=== PATIENT | female | born 1955 | race Caucasian/White ===

== ENCOUNTER 2018-10-09 11:12 | Emergency (ER) | payer MEDICARE, MEDICAID ==
[~2018-10-09] VITALS: Ht 165.1 cm; Wt 94.5 kg
[2018-10-09 11:17] VITALS: Ht 165.1 cm; Wt 94.5 kg
[2018-10-09] MEDS ORDERED: VOLTAREN75 MG PO (12:52)
[2018-10-09] MEDS ORDERED: BACLOFEN20 M1 PO (12:52)
[2018-10-09 13:23] VITALS: BP 163/84
== END 2018-10-09 13:25 | disposition home or self-care (01) ==
LOC: D.ER 11:12
DX: S49.82XA Other specified injuries of left shoulder and upper arm, initial encounter (principal); W18.2XXA Fall in (into) shower or empty bathtub, initial encounter; Y93.E1 Activity, personal bathing and showering; Y92.012 Bathroom of single-family (private) house as the place of occurrence of the external cause; M32.9 Systemic lupus erythematosus, unspecified

== ENCOUNTER 2018-11-08 21:23 | Emergency (ER) | payer MEDICARE, MEDICAID ==
[~2018-11-08] VITALS: Ht 165.1 cm; Wt 90.9 kg
[~2018-11-08 21:23] MED LIST: BACLOFEN20 M1 PO; VOLTAREN75 MG PO
[2018-11-08 21:36] VITALS: Ht 165.1 cm; Wt 90.9 kg
[2018-11-08] MEDS ORDERED: ROBAXIN500 MG PO (23:41)
[2018-11-08] MEDS ORDERED: VOLTAREN75 MG PO (23:41)
[2018-11-09 00:29] VITALS: BP 163/82
== END 2018-11-09 00:33 | disposition home or self-care (01) ==
LOC: D.ER 21:23
DX: M25.572 Pain in left ankle and joints of left foot (principal); W18.30XA Fall on same level, unspecified, initial encounter; Y93.89 Activity, other specified; Y92.012 Bathroom of single-family (private) house as the place of occurrence of the external cause

== ENCOUNTER 2018-12-24 10:10 | Day surgery (SDC) | payer MEDICARE, MEDICAID ==
[2018-12-22 13:57] LABS: HEMATOCRIT 40.8 % (36.0-48.0); IMMATURE GRANULOCYTES 0.1 % (0-5); MCH 28.4 pg (26.0-34.0); MCHC 31.9 g/dL (31.0-37.0); MCV 89.3 fL (80.0-100.0); MEAN PLATELET VOLUME 11.1 fL (7.4-10.4); RBC 4.57 10x6/uL (4.00-5.40); RDW 14.2 % (11.5-14.5)
[2018-12-22 13:59] LABS: PLATELET COUNT 302 10x3/uL (130-400)
[2018-12-22 14:04] LABS: ANION GAP 12.5 mmol/L (8-16); CALCIUM 9.1 mg/dL (8.5-10.1); CARBON DIOXIDE 32.3 mmol/L (21.0-32.0); CREATININE - SERUM 1.3 mg/dL (0.6-1.3); POTASSIUM - SERUM 4.8 mmol/L (3.5-5.1)
[2018-12-22 14:29] LABS: EOSINOPHILS 2 % (0-7); LYMPHOCYTES 21 % (15-50); MONOCYTES 3 % (2-11); NEUTROPHILS 73 % (40-80); PLATELET ESTIMATE NORMAL
[~2018-12-24] VITALS: Ht 165.1 cm; Wt 90.7 kg
[~2018-12-24 10:10] MED LIST changes: +BENADRYL25 MG PO; +FUROSEMIDE40 MG PO; +LEVOCETIRIZINE PO; +METOPROLOL TART25 MG PO; +MOBIC7.5 MG PO; +NEURONTIN600 MG PO; +NEXIUM40 MG PO; +NORVASC10 MG PO; +PROZAC40 MG PO; +ROBAXIN500 MG PO; +SYMBICORT 16010.2 GM INH; +SYNTHROID125 MCG PO; +TYLENOL PM1 TAB PO; +ZYPREXA10 MG PO
[2018-12-24 12:19] VITALS: BP 100/56; Ht 165.1 cm; Wt 90.7 kg
--- NOTE | 2018-12-24 17:30 | NUR ---
REC'D FROM RR. FAMILY AT BEDSIDE. ICE WATER BROUGHT TO PT. DRESSING CDI TO LEFT ANKLE. FOOT ELEVATED.
--- NOTE | 2018-12-24 18:00 | NUR ---
FL TRAY BROUGHT TO PATIENT. NO FAMILY AT BEDSIDE. NO CHANGES NOTED,
--- NOTE | 2018-12-24 18:30 | NUR ---
TOLERATED DIET. IV DC'D WITH CATHETER INTACT. [place], PATIENT'S SISTER CALLED AND INFORMED PATIENT WAS READY TO BE DISCHARGED. RELATED SHE IS ON HER WAY.
--- NOTE | 2018-12-24 18:45 | NUR ---
WRITTEN AND VERBAL DC INST. GIVEN TO PATIENT. VERBALIZED UNDERSTANDING. SISTER HERE TO PICK PT UP.
--- NOTE | 2018-12-24 19:05 | NUR ---
DC'D HOME WITH FAMILY VIA PRIVATE VEHICLE. TAKEN TO [facility] VIA WC. STABLE AT TIME OF DC.
== END 2018-12-24 19:05 | disposition home or self-care (01) ==
LOC: D.OPS 10:10 → D.PAN 12:00 → D.OPS 12:00
PROVIDERS: Orthopaedic Surgery
DX: S82.842A Displaced bimalleolar fracture of left lower leg, initial encounter for closed fracture (principal); F17.210 Nicotine dependence, cigarettes, uncomplicated; J44.9 Chronic obstructive pulmonary disease, unspecified; I10 Essential (primary) hypertension; K21.9 Gastro-esophageal reflux disease without esophagitis; E03.9 Hypothyroidism, unspecified; B19.10 Unspecified viral hepatitis B without hepatic coma; E66.01 Morbid (severe) obesity due to excess calories; M19.90 Unspecified osteoarthritis, unspecified site; Z68.33 Body mass index [BMI] 33.0-33.9, adult; Z88.1 Allergy status to other antibiotic agents; Z79.891 Long term (current) use of opiate analgesic; Z79.1 Long term (current) use of non-steroidal anti-inflammatories (NSAID); Z79.899 Other long term (current) drug therapy; Z01.812 Encounter for preprocedural laboratory examination

== ENCOUNTER 2019-01-11 10:32 | Inpatient (IN) | payer MEDICARE, MEDICAID ==
[~2019-01-11] VITALS: Ht 165.1 cm; Wt 90.7 kg
[2019-01-11 11:01] LABS: BASOPHILS 0.7 % (0-2); EOSINOPHILS 1.9 % (0-7); HEMATOCRIT 41.8 % (36.0-48.0); IMMATURE GRANULOCYTES 0.2 % (0-5); LYMPHOCYTES 17.3 % (15-50); MCH 28.7 pg (26.0-34.0); MCHC 33.5 g/dL (31.0-37.0); MCV 85.7 fL (80.0-100.0); MEAN PLATELET VOLUME 10.3 fL (7.4-10.4); MONOCYTES 8.1 % (2-11); NEUTROPHILS 71.8 % (40-80); PLATELET COUNT 274 10x3/uL (130-400); RBC 4.88 10x6/uL (4.00-5.40); RDW 14.2 % (11.5-14.5); WBC 9.4 10x3/uL (4.8-10.8)
[2019-01-11 11:10] LABS: ANION GAP 14.1 mmol/L (8-16); C-REACTIVE PROTEIN 6.5 mg/dL (0.0-0.9); CALCIUM 9.6 mg/dL (8.5-10.1); CARBON DIOXIDE 28.4 mmol/L (21.0-32.0); CREATININE - SERUM 1.6 mg/dL (0.6-1.3); POTASSIUM - SERUM 3.5 mmol/L (3.5-5.1)
[2019-01-11 12:23] LABS: ERYTHROCYTE SEDIMENTATION RATE 25 mm/hr (0-30)
[2019-01-11 13:17] VITALS: BP 134/85; BMI 33.3
--- NOTE | 2019-01-11 18:00 | NUR ---
SPECIMENS OBTAINED FROM LEFT ANKLE PER ORDERS AND TAKEN TO LAB. FAMILY AT BEDSIDE.
--- NOTE | 2019-01-11 20:41 | NUR ---
ATTEMPTED X2 TO START AN IV IN THE PATIENT. WAS ANABLE TO OBTAIN
--- NOTE | 2019-01-11 20:42 | NUR ---
SPOKE WITH ICU IN REGARDS TO PLACING PATIENT'S IV. RN SAID THAT THEY WILL TRY AND GET SOMEONE DOWN HERE
--- NOTE | 2019-01-11 20:47 | NUR ---
SPOKE WITH DR. DENNIS IN REGARDS TO PATIENT NOT HAVING IV ACCESS. DR. MACKENZIE STATED THE PATIENT NEEDS A LINE TONIGHT FOR HER IV ANTIBIOTICS AND THAT SOMEONE NEEDED TO BE CALLED IN TO START A LINE.
--- NOTE | 2019-01-11 20:50 | NUR ---
SPOKE WITH ELEVATOR MECHANIC APPRENTICE IN REGARDS TO PATIENT NEEDING IV ACCESS. ELEVATOR MECHANIC APPRENTICE TOLD ME TO CALL THE HEAD WAITER/WAITRESS BANQUET SURGEON TO OBTAIN CENTRAL LINE
--- NOTE | 2019-01-11 20:55 | NUR ---
PAGED DR. FLETCHER IN REGARDS TO PLACING CENTRAL LINE
--- NOTE | 2019-01-11 20:57 | NUR ---
SPOKE WITH DR. FLETCHER IN REGARDS REGARDS TO CONSULT ON CENTRAL LINE PLACEMENT. DR. FLETCHER STATED "I DON'T THINK I AM GOING TO COME UP THERE FOR THAT, WHY CAN'T SHE GET HER ANTIBIOTICS IN THE MORNING? WHAT ARE WE TREATING?" I EXPLAINED THE PATIENT'S CONDITION AND THAT DR. MACKENZIE WANTS HER TO HAVE HER ANTIBIOTICS TONIGHT SINCE SHE IS NOT GOING TO SURGERY UNTIL THE MORNING. DR. FLETCHER ASKED IF AN ICU NURSE HAD ATTEMPTED AN IV. I TOLD HIM ONE HAD NOT AND THAT THREE NURSES TRIED PRIOR TO BRINGING THE PATIENT TO THE FLOOR AND THAT I HAD ALSO ATTEMPTED AN IV. DR. FLETCHER REQUESTED THAT AN ICU NURSE COME AN ATTEMPT AN IV ON THE PATIENT.
--- NOTE | 2019-01-11 20:59 | NUR ---
SPOKE WITH JACEK, KERRICK KLEANER OPERATOR IN REGARDS TO DR. FLETCHER REQUESTING AN ICU NURSE ATTEMPT TO START THE PATIENT'S IV. JACEK STATED SHE WILL CALL AND GET SOMEONE TO COME DOWN
--- NOTE | 2019-01-11 21:17 | NUR ---
CHERI, ICU NURSE AT BEDSIDE ATTEMPTING TO START PATIENT'S IV
--- NOTE | 2019-01-11 21:33 | NUR ---
ICU NURSE ATTEMPTED IV THREE TIMES AND WAS UNABLE TO OBTAIN ACCESS.
--- NOTE | 2019-01-11 21:37 | NUR ---
PAGED DR. FLETCHER IN REGARDS TO THE ICU NURSE NOT BEING ABLE TO OBTAIN IV ACCESS
--- NOTE | 2019-01-11 21:41 | NUR ---
SPOKE WITH DR. FLETCHER IN REGARDS TO ICU NURSE NOT BEING ABLE TO PLACE IV. HE STATED THAT IF DR. MACKENZIE NEEDS ACCESS TONIGHT HE CAN CALL DR. FLETCHER HIMSELF.
--- NOTE | 2019-01-11 21:48 | NUR ---
SPOKE WITH DR. MACKENZIE IN REGARDS TO DR. FLETCHER NOT PLACING ACCESS UNTIL THE MORNING. GAVE DR. AVRIL FLETCHER'S NUMBER PER HIS REQUEST.
[2019-01-12] VITALS (7 sets, daily range): BP systolic 128–146; BP diastolic 74–87; BMI 33.3
--- NOTE | 2019-01-12 07:08 | NUR ---
PT TRANSFERED TO OR AT THIS TIME. NAD NOTED.
--- NOTE | 2019-01-12 07:26 | NUR ---
AM ROUNDS- PT RESTING COMFORTABLY IN BED, EASILY AROUSES TO VOICE. LT FA INFUSING NS AT 100. CALL LIGHT IN REACH, BEDSIDE RAILS X2, NAD NOTED, WILL CONTINUE PLAN OF CARE.
--- NOTE | 2019-01-12 11:38 | NUR ---
RECEIVED PT BACK TO ROOM 1205, PT A/O X4, RESP EVEN AND NONLABORED ON 4L NC. PT RATES PAIN 2/10. VITAL SIGNS STABLE, PLACED PT ON FREQUENT VITAL SIGNS. PT DENIES ANY NEEDS AT THIS TIME. CALL LIGHT IN REACH,NAD NOTED, WILL CONTINUE TO MONITOR.
--- NOTE | 2019-01-12 15:06 | NUR ---
PT RESTING COMFORTABLY, DENIES ANY NEEDS AT THIS TIME. CALL LIGHT IN REACH,NAD NOTED, WILL CONTINUE TO MONITOR.
--- NOTE | 2019-01-12 17:21 | NUR ---
INFORMED DR. DENNIS ABOUT DRESSING GETTING SATURATED. HE STATED TO APPLY A REINFORCE DRESSING AT THIS TIME.
--- NOTE | 2019-01-12 19:12 | NUR ---
PATIENT RESTING IN BED AND DENIES NEEDS AT THIS TIME. BED IN LOWEST POSITION AND CALL LIGHT WITHIN REACH. ENCOURAGED THE PATIENT TO CALL IF SHE HAS NEEDS. WILL CONTINUE TO MONITOR.
[2019-01-13] VITALS: BP 160/80
[2019-01-13 04:00] VITALS: BP 142/84
[2019-01-13 07:19] LABS: BASOPHILS 0.2 % (0-2); EOSINOPHILS 0 % (0-7); IMMATURE GRANULOCYTES 0.2 % (0-5); LYMPHOCYTES 8.6 % (15-50); MCH 27.6 pg (26.0-34.0); MCV 86.3 fL (80.0-100.0); MEAN PLATELET VOLUME 10.5 fL (7.4-10.4); MONOCYTES 8.4 % (2-11); NEUTROPHILS 82.6 % (40-80); WBC 10.1 10x3/uL (4.8-10.8)
--- NOTE | 2019-01-13 07:27 | NUR ---
GAVE 2MG OF MORPHINE FOR PAIN LEVEL OF 8/10. PT DENIES ANY OTHER NEEDS AT THIS TIME. A/O X4, RESP EVEN AND NONLABORED ON 2L. LT CVL INFUSING 1/2NS AT 50. CALL LIGHT IN REACH,NAD NOTED, WILL CONTINUE TO MONITOR.
[2019-01-13 07:34] VITALS: BP 166/88
[2019-01-13 07:38] LABS: HEMATOCRIT 30.3 % (36.0-48.0); HEMOGLOBIN 9.7 g/dL (12-16); PLATELET COUNT 192 10x3/uL (130-400); RBC 3.51 10x6/uL (4.00-5.40)
[2019-01-13 07:47] LABS: ANION GAP 10.2 mmol/L (8-16); CALCIUM 8.3 mg/dL (8.5-10.1); CARBON DIOXIDE 30.3 mmol/L (21.0-32.0); CREATININE - SERUM 1.5 mg/dL (0.6-1.3); POTASSIUM - SERUM 3.5 mmol/L (3.5-5.1)
--- NOTE | 2019-01-13 08:20 | NUR ---
AM MEDS GIVEN AT THIS TIME. PT IN BED, EATING BREAKFAST, DENIES ANY NEEDS AT THIS TIME. RATES PAIN LEVEL NO W5/10. CALL LIGHT IN REACH,NAD NOTED, WILL CONTINEU TO MONITOR.
--- NOTE | 2019-01-13 11:58 | NUR ---
GAVE 2MG OF MORPHINE FOR PAIN LEVEL OF 9/10. ALSO HELPED PT TO USE BEDPAN, PT ONLY URINATED A LARGE AMOUNT OF YELLOW URINE. PT DENIES ANY OTHER NEEDS AT THIS TIME. CALL LIGHT IN REACH,NAD NOTED,W ILL CONTINUE TO MONITOR.
[2019-01-13 12:23] VITALS: BP 151/78
--- NOTE | 2019-01-13 13:30 | NUR ---
PT PLACED ON TEMPORARY CONTACT ISOLATION TO RULE OUT MRSA IN THE WOUND PER INFECTION CONTROL NURSE. INFOMRED PT OF ISOLATION PROTOCOL. SIGNS FOR CONTACT ISOLATION PLACED ON DOOR. GOWN AND GLOVES BY PT'S ROOM.
--- NOTE | 2019-01-13 15:24 | NUR ---
PT NOTIFIED THIS NURSE THAT THE MORPHINE IS NOT LASTING 4 HRS. AFTER 2HRS SHE BEGINS TO HURT AGAIN. PAGED LOERTTA SORIA WITH DR. DENNIS, WAITING JEWELRY MOLD MAKER BACK.
[2019-01-13 16:03] VITALS: BP 138/76
--- NOTE | 2019-01-13 17:09 | NUR ---
DRESSING CHANGE TO LT CVL DONE AT THIS TIME. USING STERILE TECHNIQUE. INITIAL AND DATE TO DRESSING.ALSO GAVE 2MG OF MORPHINE FOR PAIN LEVEL OF 9/10. AND HELPED PT TO USE BEDPAN. PT DENIES ANY NEEDS OTHER NEEDS AT THIS TIME. CALL LIGHT IN REACH, NAD NOTED,W ILL CONTINUE TO MONITOR.
--- NOTE | 2019-01-13 19:30 | NUR ---
PT COMPAINS OF PAIN IN LEFT ANKLE 9. TO EARLY FOR PRN PAIN MEDICATION. PT ASKED ABOUT GETTING GABAPENTIN AND TYLENOL RESTARTED. PAGED RUBY SANTOS. RESTARTED GABAPENTIN AND BENADRYL. BED LOW CALL LIGHT WITHIN REACH WILL CONTINUE TO MONITOR.
[2019-01-13 20:00] VITALS: BP 132/75
--- NOTE | 2019-01-13 20:22 | NUR ---
PT LAYING IN BED ALERT AND ORIENTED. COMPLAINS OF PAIN 9/10 IN LEFT ANKLE. PRN MEDICATION GIVEN. RR-SLIGHTLY SOB AND EVEN. PT 96% O2 NC2L. PT DENIES ANY OTHER NEEDS AT THIS TIME. BED LOW CALL LIGHT WITHIN REACH. WILL CONTINUE TO MONITOR.
--- NOTE | 2019-01-13 23:40 | NUR ---
ASSISTED PT ON TO BEDPAN. PT DENIES ANY PAIN OR NEEDS AT THIS TIME. BED LOW CALL LIGHT WITHIN REACH. WILL CONTINUE TO MONITOR.
[2019-01-14] VITALS: BP 156/83
--- NOTE | 2019-01-14 03:17 | NUR ---
USING BEDPAN. NO DISTRESS. RESP EVEN AND NONLABORED. NO DISTRESS. CL IN REACH
[2019-01-14 04:00] VITALS: BP 147/92
--- NOTE | 2019-01-14 06:05 | NUR ---
PT RESTING IN BED WITH EYES CLOSED. RR-EVEN AND UNLABORED. PT ON 2L NC O2-94%. LEFT ANKLE ELEVATED. BED LOW CALL LIGHT WITHIN REACH. WILL CONTINUE TO MONITOR.
[2019-01-14 07:17] LABS: ANION GAP 9.1 mmol/L (8-16); CALCIUM 8.4 mg/dL (8.5-10.1); CARBON DIOXIDE 33.6 mmol/L (21.0-32.0); CREATININE - SERUM 1.2 mg/dL (0.6-1.3); MAGNESIUM - SERUM 1.9 mg/dL (1.8-2.4); POTASSIUM - SERUM 3.7 mmol/L (3.5-5.1)
[2019-01-14 07:53] VITALS: BP 150/90
--- NOTE | 2019-01-14 08:06 | NUR ---
ROUNDING DONE WITH PATIENT BEING IN CONTACT ISOLATION FOR LEFT LEG-STAPH. SITTING UP IN BED EATING BREAKFAST. ON 2L PER NC. LEFT CVL SEEN WITH C/D/I DRESSING AND 1/2 NS INFUSING AT 50 CC/HR. EXT. FIXATOR BRACE SEEN TO LEFT LEG. WILL FINISH ASSESSMENT PAST BREAKFAST.
[2019-01-14 08:24] LABS: BASOPHILS 0.7 % (0-2); EOSINOPHILS 3.8 % (0-7); HEMATOCRIT 30.8 % (36.0-48.0); HEMOGLOBIN 9.6 g/dL (12-16); IMMATURE GRANULOCYTES 0.1 % (0-5); LYMPHOCYTES 19.6 % (15-50); MCH 27.8 pg (26.0-34.0); MCHC 31.2 g/dL (31.0-37.0); MCV 89.3 fL (80.0-100.0); MEAN PLATELET VOLUME 10.6 fL (7.4-10.4); MONOCYTES 10.9 % (2-11); NEUTROPHILS 64.9 % (40-80); PLATELET COUNT 219 10x3/uL (130-400); RBC 3.45 10x6/uL (4.00-5.40); RDW 14.4 % (11.5-14.5); WBC 7.3 10x3/uL (4.8-10.8)
[2019-01-14 11:32] VITALS: BP 137/75
--- NOTE | 2019-01-14 12:15 | NUR ---
ASSSITED OFF BEDPAN, VOIDS EASILY.
[2019-01-14 13:23] VITALS: BMI 33.2
--- NOTE | 2019-01-14 13:29 | NUR ---
PAGE INTO BEN SORIA APN FOR DRESSING CHANGE ORDERS. LEFT HER A VOICE MAIL.
--- NOTE | 2019-01-14 14:00 | NUR ---
LORETTA SORIA APN TO CALL BACK WITH ORDERS FOR DAILY DRESSING CHANGE.
--- NOTE | 2019-01-14 14:32 | NUR ---
DRESSING CHANGED ORDERED. PIN SITES ARE CLEAN, LARGE STITCHES SEEN TO INNER AND OUTER LOWER LEG ABOVE ANKLE. INCISION LINE IS CLEAN, NO DRAINAGE. REDRESSED. TOLERATED WELL.
[2019-01-14 16:04] VITALS: BP 121/84
--- NOTE | 2019-01-14 19:22 | NUR ---
PT SITTING UP IN BED ALERT AND ORIENTED TALKING ON THE PHONE. NO S/S OF DISTRESS. BANDAGE TO LEFT FOOT C/D/I. EXTERNAL FIXATION TO LEFT FOOT. LEFT FOOT ELEVATED. 2LNC O2-94% PT DENIES ANY NEEDS AT THIS TIME. BED LOW CALL LIGHT WITHIN REACH. WILL CONTINUE TO MONITOR.
[2019-01-14 20:29] VITALS: BP 161/92
[2019-01-15 00:52] VITALS: BP 165/95
--- NOTE | 2019-01-15 00:57 | NUR ---
LYING IN BED WITH EYES CLOSED. NO DISTRESS. RESP EVEN AND NONLABORED. ISOLATQION PRECAUTIONS IN USE. SR ELEVATED X2. CL IN REACH.
--- NOTE | 2019-01-15 01:40 | NUR ---
PT COMPLAINS OF PAIN 8/10 IN LEFT ANKLE. PRN PAIN MED GIVEN. PT RR EVEN AND UNLABORED. WILL CONTINUE TO MONITOR. BED LOW CALL LIGHT WITHIN REACH.
[2019-01-15 04:00] VITALS: BP 178/82
--- NOTE | 2019-01-15 07:25 | NUR ---
REPORT RECEIVED. WILL CONTINUE WITH POC. PT CURRENTLY LYING SEMI FOWLERS. CALL LIGHT W/I REACH. PT IS AAO AND UP WITH PT ONLY. PT IS ON CONTACT ISO. RR EVEN AND UNLABORED ON 2L 02. NS INFUSING @50ML/HR VIA L.CVL. PT DENIES ANY NEEDS AT THIS TIME. WILL CTM.
[2019-01-15 08:50] VITALS: BP 154/94
[2019-01-15 09:35] LABS: EOSINOPHILS 6.3 % (0-7); HEMATOCRIT 31.9 % (36.0-48.0); HEMOGLOBIN 9.8 g/dL (12-16); IMMATURE GRANULOCYTES 0.1 % (0-5); LYMPHOCYTES 14.3 % (15-50); MCH 27.5 pg (26.0-34.0); MCHC 30.7 g/dL (31.0-37.0); MCV 89.6 fL (80.0-100.0); MEAN PLATELET VOLUME 10.3 fL (7.4-10.4); MONOCYTES 11.1 % (2-11); NEUTROPHILS 67.2 % (40-80); PLATELET COUNT 183 10x3/uL (130-400); RBC 3.56 10x6/uL (4.00-5.40); RDW 14.1 % (11.5-14.5); WBC 8.3 10x3/uL (4.8-10.8)
[2019-01-15 09:43] LABS: CALC OSMOLALITY 276 mosm/kg (275-300); CALCIUM 8.7 mg/dL (8.5-10.1); CARBON DIOXIDE 32.3 mmol/L (21.0-32.0); CHLORIDE - SERUM 100 mmol/L (98-107); GLUCOSE 120 mg/dL (74-106); MAGNESIUM - SERUM 1.6 mg/dL (1.8-2.4); SODIUM 138 mmol/L (136-145); UREA NITROGEN 13 mg/dL (7-18); eGFR NON AFRICAN AMERICAN 77 mL/min (90-120)
[2019-01-15 09:50] LABS: CREATININE - SERUM 0.8 mg/dL (0.6-1.3)
--- NOTE | 2019-01-15 14:14 | MORECARE ---
CASE MANAGEMENT DISCHARGE SUMMARY PATIENT: KATIE BAI ANN UNIT: [id number] ADM DATE: 01/11/19 AGE: 63 : 59 SEX: F ROOM/BED: D.1205 AUTHOR: ELIA SANTANA PHYSICIAN: REFERRING PHYSICIAN: ROXANE MACKENZIE MD DATE OF SERVICE: 01/15/19 Discharge Plan Patient Name: KATIE BAI Facility: [facility]:[place] : 1955 Planned Disposition: Anticipated Discharge Date: Discharge Date: Expected LOS: Initial Reviewer: [email or web address] Initial Review Date: 01/15/2019 Generated: 01/15/19 3:14 pm Patient Name: KATIE BAI Page [phone] at 1414 All edits/amendments must be made on the electronic document DICTATION DATE: 01/15/19 1413 ARMOR SENIOR SERGEANT: THADDEUS 01/15/19 1413 RPT#: [id number] DC DATE: STATUS: ADM IN [facility] [address] [place] [address] END OF REPORT
--- NOTE | 2019-01-15 14:23 | MORECARE ---
CASE MANAGEMENT DISCHARGE SUMMARY PATIENT: KATIE BAI ANN UNIT: [id number] ADM DATE: 01/11/19 AGE: 63 : 59 SEX: F ROOM/BED: D.1205 AUTHOR: ELIA SANTANA PHYSICIAN: REFERRING PHYSICIAN: ROXANE MACKENZIE MD DATE OF SERVICE: 01/15/19 Discharge Plan Patient Name: KATIE BAI Facility: [facility]:[place] : 1955 Planned Disposition: Anticipated Discharge Date: Discharge Date: Expected LOS: Initial Reviewer: [id number] Initial Review Date: 01/15/2019 Generated: 01/15/19 3:22 pm Comments DCP- Discharge Planning Updated by [email or web address]: Sagrario Gupta on 01/15/19 1:[address] Patient Name: KATIE BAI Admission Status: Elective Accout number: [id number] Admission Date: 01-11-2019 : 1955 Admission Diagnosis:OTHER OSTEOMYELITIS, LOWER LEG Attending: ROXANE MACKENZIE Current LOS: 4 Anticipated DC Date: Planned Disposition: Primary Insurance: WE[employer] MEDICARE ADV Discharge Planning Comments: CM MET WITH PATIENT ABOUT DC PLANNING/NEEDS. STATES SHE LIVES AT [facility] IN ASSISTED LIVING. HAS EXTERNAL FIXATER ON LEFT FOOT. PATIENT SIGNED PATIENT CHOICE FORM IN CASE SHE NEEDS EXTRA SERVICES WHEN DISCHARGED. SHE CHOSE [facility] FOR IV INFUSION, AND [facility] FOR 02 OR NEBULIZER NEEDS. IM SERVED. CM WILL FOLLOW AND ASSIST NEEDED WITH DC PLANNING/NEEDS. Assembler Fishing Floats: Sagrario Gupta DCPIA - Discharge Planning Initial Assessment Updated by [email or web address]: Sagrario Gupta on 01/15/19 2:14 pm * Is the patient Alert and Oriented? Yes * PCP DARLENE * Pharmacy [facility] * Preadmission Environment Assisted Living * Facility Name [facility] * ADLs Independent * Equipment Crutch Walker Wheelchair * List name and contact numbers for known caregivers / representatives who currently or will assist patient after discharge: [place] [phone] * Community resources currently utilized Assisted Living * Please name any agencies selected above. [facility] * Can the patient safely return to the preadmission environment? Yes * Has this patient been hospitalized within the prior 30 days at any hospital? No Last DP export: 01/15/19 1:14 p Patient Name: KATIE BAI Page [phone] at 1423 All edits/amendments must be made on the electronic document DICTATION DATE: 01/15/191421 DROP WIRER: THADDEUS 01/15/191421 RPT#: [id number] DC DATE: STATUS: ADM IN [facility] [address] [place] [address] END OF REPORT
[2019-01-15 20:17] VITALS: BP 168/76
[2019-01-15 22:33] VITALS: BP 165/91
[2019-01-16 00:42] VITALS: BP 161/89
[2019-01-16 05:10] VITALS: BP 165/96
[2019-01-16 06:56] LABS: BASOPHILS 0.5 % (0-2); EOSINOPHILS 5.8 % (0-7); HEMATOCRIT 32.2 % (36.0-48.0); HEMOGLOBIN 9.8 g/dL (12-16); IMMATURE GRANULOCYTES 0.1 % (0-5); LYMPHOCYTES 10.4 % (15-50); MCH 27.2 pg (26.0-34.0); MCHC 30.4 g/dL (31.0-37.0); MCV 89.4 fL (80.0-100.0); MEAN PLATELET VOLUME 10.1 fL (7.4-10.4); MONOCYTES 10.3 % (2-11); NEUTROPHILS 72.9 % (40-80); RDW 14.1 % (11.5-14.5); WBC 8.3 10x3/uL (4.8-10.8)
[2019-01-16 07:01] LABS: PLATELET COUNT 221 10x3/uL (130-400)
[2019-01-16 07:18] LABS: CALC OSMOLALITY 274 mosm/kg (275-300); CALCIUM 8.6 mg/dL (8.5-10.1); CARBON DIOXIDE 33.5 mmol/L (21.0-32.0); CHLORIDE - SERUM 98 mmol/L (98-107); CREATININE - SERUM 0.8 mg/dL (0.6-1.3); GLUCOSE 102 mg/dL (74-106); MAGNESIUM - SERUM 1.6 mg/dL (1.8-2.4); POTASSIUM - SERUM 3.9 mmol/L (3.5-5.1); SODIUM 138 mmol/L (136-145); eGFR NON AFRICAN AMERICAN 77 mL/min (90-120)
[2019-01-16 07:21] LABS: UREA NITROGEN 9 mg/dL (7-18)
--- NOTE | 2019-01-16 08:10 | NUR ---
PT AAOX4 RESP EVEN AND NONLBAORED, NO SIGNS OF DISTRESS NOTED, NO QUESTIONS/CONCERNS EXPRESSED, CL IN REACH WILL CONTINUE TO MONITOR
--- NOTE | 2019-01-16 12:29 | NUR ---
CONTACT ISOLATION PRECAUTIONS IN USE.
--- NOTE | 2019-01-16 16:18 | MORECARE ---
CASE MANAGEMENT DISCHARGE SUMMARY PATIENT: KATIE BAI ANN UNIT: [id number] ADM DATE: 01/11/19 AGE: 63 : 59 SEX: F ROOM/BED: D.1205 AUTHOR: ELIA SANTANA PHYSICIAN: REFERRING PHYSICIAN: ORXANE MAKCENZIE MD DATE OF SERVICE: 01/16/19 Discharge Plan Patient Name: KATIE BAI Facility: [facility]:[place] : 1955 Planned Disposition: Anticipated Discharge Date: Discharge Date: Expected LOS: Initial Reviewer: [email or web address] Initial Review Date: 01/15/2019 Generated: 01/16/19 5:18 pm Comments DCP- Discharge Planning Updated by [id number]: Sagrario Gupta on 01/16/19 3:[address] Patient Name: KATIE BAI Admission Status: Elective Accout number: [id number] Admission Date: 01-11-2019 : 1955 Admission Diagnosis:OTHER OSTEOMYELITIS, LOWER LEG Attending: ROXANE MACKENZIE Current LOS: 5 Anticipated DC Date: Planned Disposition: Primary Insurance: WELL[employer]ARE MEDICARE ADV Discharge Planning Comments: CM MET WITH PATIENT AGAIN ABOUT DC PLANNING/NEEDS. PATIENT WILL NEED INPATIENT REHAB OR SNF. CM LEFT MS FOR RUBY BURGOS ABOUT OT AND REHAB CONSULTS. ALSO PATIENT'S RESPIRATIONS ARE LABORED AND SHE IS ON 4L 02 NC. DOESN'T HAVE O2 OR NEB AT HOME. WILL PROBABLY NEED AT TIME OF DC. STATES HASN'T SEEN A RN DOCUMENTATION, MAY NEED PULM CONSULT. CM WILL FOLLOW AND ASSIST NEEDED WITH DC PLANNING/NEEDS. Credit Collections Manager: Sagrario Gupta DCP- Discharge Planning Updated by [email or web address]: Sagrario Gupta on 01/15/19 1:[address] Patient Name: KATIE BAI Admission Status: Elective Accout number: [id number] Admission Date: 01-11-2019 : 1955 Admission Diagnosis:OTHER OSTEOMYELITIS, LOWER LEG Attending: ROXANE MACKENZIE Current LOS: 4 Anticipated DC Date: Planned Disposition: Primary Insurance: WELLCARE MEDICARE ADV Discharge Planning Comments: CM MET WITH PATIENT ABOUT DC PLANNING/NEEDS. STATES SHE LIVES AT [facility] IN ASSISTED LIVING. HAS EXTERNAL FIXATER ON LEFT FOOT. PATIENT SIGNED PATIENT CHOICE FORM IN CASE SHE NEEDS EXTRA SERVICES WHEN DISCHARGED. SHE [facility]OSE [facility] FOR [facility] INFUSION, AND [facility] FOR 02 OR NEBULIZER NEEDS. IM SERVED. CM WILL FOLLOW AND ASSIST NEEDED WITH DC PLANNING/NEEDS. Credit Collections Manager: Sagrario Candy DCPIA - Discharge Planning Initial Assessment Updated by [id number]: Sagrario Gupta on 01/15/19 2:14 pm * Is the patient Alert and Oriented? Yes * PCP DARLENE * Pharmacy [facility] * Preadmission Environment Assisted Living * Facility Name [facility] * ADLs Independent * Equipment Crutch Walker Wheelchair * List name and contact numbers for known caregivers / representatives who currently or will assist patient after discharge: [place] [phone] * Community resources currently utilized Assisted Living * Please name any agencies selected above. [facility] [facility] * Can the patient safely return to the preadmission environment? Yes * Has this patient been hospitalized within the prior 30 days at any hospital? No Coverage Notice Reviewer: VEENA Gupta Notice Issued Date-Time: 01/15/2019 14:23 Notice Type: IM Discharge Notice Notice Delivered To: Patient Relationship to Patient: Self Logistics/Shipper Name: Delivery Method: HAND - Hand Delivered Stacey Days: Prior Verbal Notification: Recipient Understood Notice: Yes Recipient Signature: Yes Med Rec Note Co-signed by Attending: Coverage Notice Comment: Reviewer: VEENA Gupta Notice Issued Date-Time: 01/15/2019 14:23 Notice Type: Patient Choice Letter Notice Delivered To: Patient Relationship to Patient: Self Logistics/Shipper Name: Delivery Method: HAND - Hand Delivered Stacey Days: Prior Verbal Notification: Recipient Understood Notice: Yes Recipient Signature: Yes Med Rec Note Co-signed by Attending: Coverage Notice Comment: [facility] FOR IV INFUSION [facility] IF NEEDS O2 Reviewer: [email or web address] Gupta Notice Issued Date-Time: 01/16/2019 16:09 Notice Type: Patient Choice Letter Notice Delivered To: Patient Relationship to Patient: Self Logistics/Shipper Name: Delivery Method: HAND - Hand Delivered Stacey Days: Prior Verbal Notification: Recipient Understood Notice: Yes Recipient Signature: Yes Med Rec Note Co-signed by Attending: Coverage Notice Comment: [facility] IF NEEDS SNF Last DP export: 01/15/19 1:22 p Patient Name: KATIE BAI Page [phone] at 1618 All edits/amendments must be made on the electronic document DICTATION DATE: 01/16/191616 CIVIL DIVISION COMMANDER DEPUTY SHERIFF: THADDEUS 01/16/191616 RPT#: [id number] DC DATE: STATUS: ADM IN [facility] [address] [place] [address] END OF REPORT
[2019-01-16 18:55] VITALS: BP 157/87
--- NOTE | 2019-01-16 19:54 | NUR ---
PATIENT RESTING IN BED WITH NO S/S OF DISTRESS. ADMINISTERED MEDS PER ORDERS. PATIENT DENIES NEEDS AT THIS TIME. BED IN LOWEST POSITION AND CALL LIGHT WITHIN REACH. WILL CONTINUE TO MONITOR.
[2019-01-16 20:00] VITALS: BP 182/101
[2019-01-17] VITALS: BP 157/88
[2019-01-17 04:00] VITALS: BP 136/84
[2019-01-17 05:54] LABS: BASOPHILS 0.5 % (0-2); EOSINOPHILS 7.1 % (0-7); HEMATOCRIT 31.4 % (36.0-48.0); HEMOGLOBIN 9.6 g/dL (12-16); IMMATURE GRANULOCYTES 0.2 % (0-5); LYMPHOCYTES 10.6 % (15-50); MCH 27.4 pg (26.0-34.0); MCHC 30.6 g/dL (31.0-37.0); MCV 89.7 fL (80.0-100.0); MEAN PLATELET VOLUME 10.4 fL (7.4-10.4); MONOCYTES 12.3 % (2-11); NEUTROPHILS 69.3 % (40-80); PLATELET COUNT 233 10x3/uL (130-400); RDW 14.1 % (11.5-14.5)
[2019-01-17 05:56] LABS: WBC 5.8 10x3/uL (4.8-10.8)
[2019-01-17 06:11] LABS: ANION GAP 10.9 mmol/L (8-16); CALCIUM 8.6 mg/dL (8.5-10.1); CARBON DIOXIDE 35.5 mmol/L (21.0-32.0); MAGNESIUM - SERUM 1.6 mg/dL (1.8-2.4); POTASSIUM - SERUM 3.4 mmol/L (3.5-5.1)
[2019-01-17 06:12] LABS: CREATININE - SERUM 1.2 mg/dL (0.6-1.3)
--- NOTE | 2019-01-17 08:11 | NUR ---
PT AAOX4 RESP EVEN AND NONLABORED, NO SIGNS OF DISTRESS NOTED, TALKING ON THE PHONE, CL IN REACH
--- NOTE | 2019-01-17 12:40 | NUR ---
CONTACT ISOLATION PRECAUTIONS IN PLACE. DENIES ANY NEEDS AT THIS TIME.
[2019-01-17 16:50] LABS: AEROBE ID Final report (())
[2019-01-17 19:35] VITALS: BP 135/72
--- NOTE | 2019-01-17 19:49 | NUR ---
PATIENT RESTING IN BED AND DENIES NEED AT THIS TIME. BED IN LOWEST POSITION AND CALL LIGHT WITHIN REACH. ENCOURAGED THE PATIENT TO CALL IF SHE HAS NEEDS. WILL CONTINUE TO MONITOR.
[2019-01-17 20:23] VITALS: BP 164/88
[2019-01-18] VITALS: BP 156/89
[2019-01-18 05:51] VITALS: BP 157/79
[2019-01-18 06:44] LABS: BASOPHILS 0.6 % (0-2); EOSINOPHILS 8.9 % (0-7); HEMATOCRIT 31.2 % (36.0-48.0); HEMOGLOBIN 9.6 g/dL (12-16); IMMATURE GRANULOCYTES 0.3 % (0-5); LYMPHOCYTES 14.2 % (15-50); MCH 27.8 pg (26.0-34.0); MCHC 30.8 g/dL (31.0-37.0); MCV 90.4 fL (80.0-100.0); MEAN PLATELET VOLUME 10.2 fL (7.4-10.4); MONOCYTES 15.2 % (2-11); NEUTROPHILS 60.8 % (40-80); PLATELET COUNT 231 10x3/uL (130-400); RBC 3.45 10x6/uL (4.00-5.40); RDW 14.2 % (11.5-14.5); WBC 6.6 10x3/uL (4.8-10.8)
[2019-01-18 06:54] LABS: CALCIUM 8.6 mg/dL (8.5-10.1); CARBON DIOXIDE 36.9 mmol/L (21.0-32.0); CHLORIDE - SERUM 98 mmol/L (98-107); GLUCOSE 103 mg/dL (74-106); MAGNESIUM - SERUM 1.8 mg/dL (1.8-2.4); POTASSIUM - SERUM 3.7 mmol/L (3.5-5.1); SODIUM 139 mmol/L (136-145); VANCOMYCIN - TROUGH 14.3 ug/mL (10.0-20.0); eGFR NON AFRICAN AMERICAN 77 mL/min (90-120)
[2019-01-18 06:57] LABS: CALC OSMOLALITY 275 mosm/kg (275-300); CREATININE - SERUM 0.8 mg/dL (0.6-1.3); UREA NITROGEN 7 mg/dL (7-18)
[2019-01-18 08:44] VITALS: BP 148/89
--- NOTE | 2019-01-18 12:40 | MORECARE ---
CASE MANAGEMENT DISCHARGE SUMMARY PATIENT: KATIE BAI ANN UNIT: [id number] ADM DATE: 01/11/19 AGE: 63 : 59 SEX: F ROOM/BED: D.1205 AUTHOR: ELIA SANTANA PHYSICIAN: REFERRING PHYSICIAN: ROXANE MACKENZIE MD DATE OF SERVICE: 01/18/19 Discharge Plan Patient Name: KATIE BAI Facility: [facility]:[place] : 1955 Planned Disposition: Anticipated Discharge Date: Discharge Date: Expected LOS: Initial Reviewer: [id number] Initial Review Date: 01/15/2019 Generated: 01/18/19 1:40 pm Comments DCP- Discharge Planning Updated by [email or web address]: Sagrario Gupta on 01/16/19 3:[address] Patient Name: KATIE BAI Admission Status: Elective Accout number: [id number] Admission Date: 01-11-2019 : 1955 Admission Diagnosis:OTHER OSTEOMYELITIS, LOWER LEG Attending: ROXANE MACKENZIE Current LOS: 5 Anticipated DC Date: Planned Disposition: Primary Insurance: WELLCARE MEDICARE ADV Discharge Planning Comments: CM MET WITH PATIENT AGAIN ABOUT DC PLANNING/NEEDS. PATIENT WILL NEED INPATIENT REHAB OR SNF. CM LEFT MS FOR RUBY BURGOS ABOUT OT AND REHAB CONSULTS. ALSO PATIENT'S RESPIRATIONS ARE LABORED AND SHE IS ON 4L 02 NC. DOESN'T HAVE O2 OR NEB AT HOME. WILL PROBABLY NEED AT TIME OF DC. STATES HASN'T SEEN A CONTROLS TECHNICIAN, MAY NEED PULM CONSULT. CM WILL FOLLOW AND ASSIST NEEDED WITH DC PLANNING/NEEDS. Rn Advice: Sagrario Gupta DCP- Discharge Planning Updated by [id number]: Sagrario Gupta on 01/15/19 1:[address] Patient Name: KATIE BAI Admission Status: Elective Accout number: [id number] Admission Date: 01-11-2019 : 1955 Admission Diagnosis:OTHER OSTEOMYELITIS, LOWER LEG Attending: ROXANE MACKENZIE Current LOS: 4 Anticipated DC Date: Planned Disposition: Primary Insurance: WELLCARE MEDICARE ADV Discharge Planning Comments: CM MET WITH PATIENT ABOUT DC PLANNING/NEEDS. STATES SHE LIVES AT [facility] IN ASSISTED LIVING. HAS EXTERNAL FIXATER ON LEFT FOOT. PATIENT SIGNED PATIENT CHOICE FORM IN CASE SHE NEEDS EXTRA SERVICES WHEN DISCHARGED. SHE [facility]OSE [facility], [facility] FOR [facility] INFUSION, AND [facility] FOR 02 OR NEBULIZER NEEDS. IM SERVED. CM WILL FOLLOW AND ASSIST NEEDED WITH DC PLANNING/NEEDS. Rn Advice: Sagrario Candy DCPIA - Discharge Planning Initial Assessment Updated by [id number]: Sagrario Gputa on 01/15/19 2:14 pm * Is the patient Alert and Oriented? Yes * PCP DARLENE * Pharmacy [facility] * Preadmission Environment Assisted Living * Facility Name [facility] * ADLs Independent * Equipment Crutch Walker Wheelchair * List name and contact numbers for known caregivers / representatives who currently or will assist patient after discharge: [place] [phone] * Community resources currently utilized Assisted Living * Please name any agencies selected above. [facility] [employer] * Can the patient safely return to the preadmission environment? Yes * Has this patient been hospitalized within the prior 30 days at any hospital? No Coverage Notice Reviewer: VEENA Gupta Notice Issued Date-Time: 01/15/2019 14:23 Notice Type: IM Discharge Notice Notice Delivered To: Patient Relationship to Patient: Self Manager Staffing Name: Delivery Method: HAND - Hand Delivered Stacey Days: Prior Verbal Notification: Recipient Understood Notice: Yes Recipient Signature: Yes Med Rec Note Co-signed by Attending: Coverage Notice Comment: Reviewer: VEENA Gupta Notice Issued Date-Time: 01/15/2019 14:23 Notice Type: Patient Choice Letter Notice Delivered To: Patient Relationship to Patient: Self Manager Staffing Name: Delivery Method: HAND - Hand Delivered Stacey Days: Prior Verbal Notification: Recipient Understood Notice: Yes Recipient Signature: Yes Med Rec Note Co-signed by Attending: Coverage Notice Comment: [facility] FOR IV INFUSION [facility] IF NEEDS O2 Reviewer: [id number] Gupta Notice Issued Date-Time: 01/16/2019 16:09 Notice Type: Patient Choice Letter Notice Delivered To: Patient Relationship to Patient: Self Manager Staffing Name: Delivery Method: HAND - Hand Delivered Stacey Days: Prior Verbal Notification: Recipient Understood Notice: Yes Recipient Signature: Yes Med Rec Note Co-signed by Attending: Coverage Notice Comment: [facility] Last DP export: 01/16/19 3:18 p Patient Name: KATIE BAI Page [phone] at 1240 All edits/amendments must be made on the electronic document DICTATION DATE: 01/18/191238 LINK WIRE FABRIC MACHINE TENDER: THADDEUS 01/18/191238 RPT#: [id number] DC DATE: STATUS: ADM IN [facility] [address] [place] [address] END OF REPORT
[2019-01-18 13:00] VITALS: BP 137/82
--- NOTE | 2019-01-18 14:07 | MORECARE ---
CASE MANAGEMENT DISCHARGE SUMMARY PATIENT: KATIE BAI ANN UNIT: [id number] ADM DATE: 01/11/19 AGE: 63 : 59 SEX: F ROOM/BED: D.1205 AUTHOR: ELIA SANTANA PHYSICIAN: REFERRING PHYSICIAN: ROXANE MACKENZIE MD DATE OF SERVICE: 01/18/19 Discharge Plan Patient Name: KATIE BAI Facility: [facility]:[place] : 1955 Planned Disposition: Anticipated Discharge Date: Discharge Date: Expected LOS: Initial Reviewer: [id number] Initial Review Date: 01/15/2019 Generated: 01/18/19 3:07 pm Comments DCP- Discharge Planning Updated by [id number]: Sagrario Gupta on 01/16/19 3:[address] Patient Name: KATIE BAI Admission Status: Elective Accout number: [id number] Admission Date: 01-11-2019 : 1955 Admission Diagnosis:OTHER OSTEOMYELITIS, LOWER LEG Attending: ROXANE MACKENZIE Current LOS: 5 Anticipated DC Date: Planned Disposition: Primary Insurance: [employer]ARE ADV Discharge Planning Comments: CM MET WITH PATIENT AGAIN ABOUT DC PLANNING/NEEDS. PATIENT WILL NEED INPATIENT REHAB OR SNF. CM LEFT MS FOR [facility] ABOUT OT AND REHAB CONSULTS. ALSO PATIENT'S RESPIRATIONS ARE LABORED AND SHE IS ON 4L 02 NC. DOESN'T HAVE O2 OR NEB AT HOME. WILL PROBABLY NEED AT TIME OF DC. STATES HASN'T SEEN A PATIENT NAVIGATOR, MAY NEED PULM CONSULT. CM WILL FOLLOW AND ASSIST NEEDED WITH DC PLANNING/NEEDS. Loader Unloader: Sagrario Gupta DCP- Discharge Planning Updated by [email or web address]: Sagrario Gupta on 01/15/19 1:[address] Patient Name: KATIE BAI Admission Status: Elective Accout number: [id number] Admission Date: 01-11-2019 : 1955 Admission Diagnosis:OTHER OSTEOMYELITIS, LOWER LEG Attending: ROXANE MACKENZIE Current LOS: 4 Anticipated DC Date: Planned Disposition: Primary Insurance: WELL[employer] MEDICARE ADV Discharge Planning Comments: CM MET WITH PATIENT ABOUT DC PLANNING/NEEDS. STATES SHE LIVES AT [facility] IN ASSISTED LIVING. HAS EXTERNAL FIXATER ON LEFT FOOT. PATIENT SIGNED PATIENT CHOICE FORM IN CASE SHE NEEDS EXTRA SERVICES WHEN DISCHARGED. SHE CHOSE [facility] FOR [facility]ION, AND [facility] FOR 02 OR NEBULIZER NEEDS. IM SERVED. CM WILL FOLLOW AND ASSIST NEEDED WITH DC PLANNING/NEEDS. Loader Unloader: Sagrario Candy DCPIA - Discharge Planning Initial Assessment Updated by [id number]: Sagrario Gupta on 01/15/19 2:14 pm * Is the patient Alert and Oriented? Yes * PCP DARLENE * Pharmacy [facility] * Preadmission Environment Assisted Living * Facility Name [email or web address] * ADLs Independent * Equipment Crutch Walker Wheelchair * List name and contact numbers for known caregivers / representatives who currently or will assist patient after discharge: [place] [phone] * Community resources currently utilized Assisted Living * Please name any agencies selected above. [facility] * Can the patient safely return to the preadmission environment? Yes * Has this patient been hospitalized within the prior 30 days at any hospital? No Coverage Notice Reviewer: VEENA Gupta Notice Issued Date-Time: 01/15/2019 14:23 Notice Type: IM Discharge Notice Notice Delivered To: Patient Relationship to Patient: Self Emblem Cutter Name: Delivery Method: HAND - Hand Delivered Stacey Days: Prior Verbal Notification: Recipient Understood Notice: Yes Recipient Signature: Yes Med Rec Note Co-signed by Attending: Coverage Notice Comment: Reviewer: VEENA Gupta Notice Issued Date-Time: 01/15/2019 14:23 Notice Type: Patient Choice Letter Notice Delivered To: Patient Relationship to Patient: Self Emblem Cutter Name: Delivery Method: HAND - Hand Delivered Stacey Days: Prior Verbal Notification: Recipient Understood Notice: Yes Recipient Signature: Yes Med Rec Note Co-signed by Attending: Coverage Notice Comment: [facility] FOR IV INFUSION [facility] IF NEEDS O2 Reviewer: [id number] Gupta Notice Issued Date-Time: 01/16/2019 16:09 Notice Type: Patient Choice Letter Notice Delivered To: Patient Relationship to Patient: Self Emblem Cutter Name: Delivery Method: HAND - Hand Delivered Stacey Days: Prior Verbal Notification: Recipient Understood Notice: Yes Recipient Signature: Yes Med Rec Note Co-signed by Attending: Coverage Notice Comment: [facility] Last DP export: 01/18/19 11:40 a Patient Name: KATIE BAI Page 23043 at 1407 All edits/amendments must be made on the electronic document DICTATION DATE: 01/18/191406 CATTLE CARE WORKER: THADDEUS 01/18/191406 RPT#: [id number] DC DATE: STATUS: ADM IN [facility] [address] [place] [address] END OF REPORT
--- NOTE | 2019-01-18 15:33 | NUR ---
REHAB PRESCREENING Rehab referral received and chart reviewed. Ms. Luna has [facility] as her provider which requires a prior authorization for the acute inpatient rehab benefit. Prior authorization has been initiated and clinicals have been faxed to [facility]. Rehab will notify case management of results. Thank you for this referral! Kalie Cardozo, WORKDAY CONSULTANT Rehab PD
[2019-01-18 15:57] VITALS: BP 123/72
--- NOTE | 2019-01-18 17:00 | NUR ---
OT NOTE: PT COMPLETED BED MOB AND EOB SITTING WITH MIN A. THANK YOU, RAVINDER CISSE
--- NOTE | 2019-01-18 17:42 | MORECARE ---
CASE MANAGEMENT DISCHARGE SUMMARY PATIENT: KATIE BAI ANN UNIT: [id number] ADM DATE: 01/11/19 AGE: 63 : 59 SEX: F ROOM/BED: D.1205 AUTHOR: ELIA SANTANA PHYSICIAN: REFERRING PHYSICIAN: ROXANE MACKENZIE MD DATE OF SERVICE: 01/18/19 Discharge Plan Patient Name: KATIE BAI Facility: [facility]:[place] : 1955 Planned Disposition: Anticipated Discharge Date: Discharge Date: Expected LOS: Initial Reviewer: [id number] Initial Review Date: 01/15/2019 Generated: 01/18/19 6:42 pm Comments DCP- Discharge Planning Updated by [id number]: Sagrario Gupta on 01/18/19 4:[address] Patient Name: KATIE BAI Admission Status: Elective Accout number: [id number] Admission Date: 01-11-2019 : 1955 Admission Diagnosis:OTHER OSTEOMYELITIS, LOWER LEG Attending: ROXANE MACKENZIE Current LOS: 7 Anticipated DC Date: Planned Disposition: Primary Insurance: WELL[employer] MEDICARE ADV Discharge Planning Comments: CM SPOKE WITH [facility] IN INPT REHAB AND ORDERED CONSULT. [facility] WILL SEE TODAY. PATIENT STATES IF INS DOESN'T AUTH INPT REHAB THEN SHE WANTS TO GO TO [facility]. CM WILL FOLLOW AND ASSIST NEEDED. Traveling Repair Accountant: Sagrario Gupta DCP- Discharge Planning Updated by [email or web address]: Sagrario Gupta on 01/16/19 3:[address] Patient Name: KTAIE BAI Admission Status: Elective Accout number: [id number] Admission Date: 01-11-2019 : 1955 Admission Diagnosis:OTHER OSTEOMYELITIS, LOWER LEG Attending: ROXANE MACKENZIE Current LOS: 5 Anticipated DC Date: Planned Disposition: Primary Insurance: WE[employer] MEDICARE ADV Discharge Planning Comments: CM MET WITH PATIENT AGAIN ABOUT DC PLANNING/NEEDS. PATIENT WILL NEED INPATIENT REHAB OR SNF. CM LEFT MS FOR [facility] ABOUT OT AND REHAB CONSULTS. ALSO PATIENT'S RESPIRATIONS ARE LABORED AND SHE IS ON 4L 02 NC. DOESN'T HAVE O2 OR NEB AT HOME. WILL PROBABLY NEED AT TIME OF DC. STATES HASN'T SEEN A FIRE PREVENTION BUREAU CAPTAIN, MAY NEED PULM CONSULT. CM WILL FOLLOW AND ASSIST NEEDED WITH DC PLANNING/NEEDS. Traveling Repair Accountant: Sagrario Gupta DCP- Discharge Planning Updated by [id number]: Sagrario Gupta on 01/15/19 1:[address] Patient Name: KATIE BAI Admission Status: Elective Accout number: [id number] Admission Date: 01-11-2019 : 1955 Admission Diagnosis:OTHER OSTEOMYELITIS, LOWER LEG Attending: ROXANE MACKENZIE Current LOS: 4 Anticipated DC Date: Planned Disposition: Primary Insurance: WE[employer] MEDICARE ADV Discharge Planning Comments: CM MET WITH PATIENT ABOUT DC PLANNING/NEEDS. STATES SHE LIVES AT [facility] IN ASSISTED LIVING. HAS EXTERNAL FIXATER ON LEFT FOOT. PATIENT SIGNED PATIENT CHOICE FORM IN CASE SHE NEEDS EXTRA SERVICES WHEN DISCHARGED. SHE CHOSE [facility]ION, AND [facility] FOR 02 OR NEBULIZER NEEDS. IM SERVED. CM WILL FOLLOW AND ASSIST NEEDED WITH DC PLANNING/NEEDS. Traveling Repair Accountant: Sagrario Gupta DCPIA - Discharge Planning Initial Assessment Updated by [email or web address]: Sagrario Candy on 01/15/19 2:14 pm * Is the patient Alert and Oriented? Yes * PCP DARLENE * Pharmacy [facility] * Preadmission Environment Assisted Living * Facility Name [facility] * ADLs Independent * Equipment Crutch Walker Wheelchair * List name and contact numbers for known caregivers / representatives who currently or will assist patient after discharge: [place] [phone] * Community resources currently utilized Assisted Living * Please name any agencies selected above. [facility] * Can the patient safely return to the preadmission environment? Yes * Has this patient been hospitalized within the prior 30 days at any hospital? No Coverage Notice Reviewer: [id number] Tahmina Gupta Notice Issued Date-Time: 01/15/2019 14:23 Notice Type: IM Discharge Notice Notice Delivered To: Patient Relationship to Patient: Self Crystal Cutter Name: Delivery Method: HAND - Hand Delivered Stacey Days: Prior Verbal Notification: Recipient Understood Notice: Yes Recipient Signature: Yes Med Rec Note Co-signed by Attending: Coverage Notice Comment: Reviewer: [id number] Gupta Notice Issued Date-Time: 01/15/2019 14:23 Notice Type: Patient Choice Letter Notice Delivered To: Patient Relationship to Patient: Self Crystal Cutter Name: Delivery Method: HAND - Hand Delivered Stacey Days: Prior Verbal Notification: Recipient Understood Notice: Yes Recipient Signature: Yes Med Rec Note Co-signed by Attending: Coverage Notice Comment: [facility] FOR IV INFUSION [facility] IF NEEDS O2 Reviewer: [id number] - Sagrario Gupta Notice Issued Date-Time: 01/16/2019 16:09 Notice Type: Patient Choice Letter Notice Delivered To: Patient Relationship to Patient: Self Crystal Cutter Name: Delivery Method: HAND - Hand Delivered Stacey Days: Prior Verbal Notification: Recipient Understood Notice: Yes Recipient Signature: Yes Med Rec Note Co-signed by Attending: Coverage Notice Comment: [facility] Last DP export: 01/18/19 1:07 p Patient Name: KATIE BAI Page [id number] at 1742 All edits/amendments must be made on the electronic document DICTATION DATE: 01/18/191740 VICE PRESIDENT OF PRODUCT MARKETING: THADDEUS 01/18/191740 RPT#: [id number] LA DATE: STATUS: ADM IN [facility] [address] [place] [address] END OF REPORT
[2019-01-18 20:00] VITALS: BP 148/81
--- NOTE | 2019-01-18 20:28 | NUR ---
PATIENT RESTING IN BED WITH NO S/S OF DISTRESS. ADMINISTERED MEDS PER ORDERS. PATIENT DENIES OTHER NEEDS AT THIS TIME. BED IN LOWEST POSITION AND CALL LIGHT WITHIN REACH. ENCOURAGED THE PATIENT TO CALL IF SHE HAS NEEDS. WILL CONTINUE TO MONITOR.
[2019-01-19] VITALS: BP 142/79
[2019-01-19 04:30] VITALS: BP 137/83
[2019-01-19 07:42] LABS: ANION GAP 8.9 mmol/L (8-16); C-REACTIVE PROTEIN 13.2 mg/dL (0.0-0.9); CARBON DIOXIDE 37.2 mmol/L (21.0-32.0); CREATININE - SERUM 0.9 mg/dL (0.6-1.3); MAGNESIUM - SERUM 1.6 mg/dL (1.8-2.4)
[2019-01-19 07:44] LABS: POTASSIUM - SERUM 3.1 mmol/L (3.5-5.1)
[2019-01-19 09:01] VITALS: BP 142/78
[2019-01-19 09:35] LABS: ERYTHROCYTE SEDIMENTATION RATE 34 mm/hr (0-30)
[2019-01-19 09:36] LABS: BASOPHILS 0.5 % (0-2); EOSINOPHILS 10.9 % (0-7); HEMATOCRIT 28.5 % (36.0-48.0); HEMOGLOBIN 8.7 g/dL (12-16); IMMATURE GRANULOCYTES 0.2 % (0-5); LYMPHOCYTES 17.4 % (15-50); MCH 27.5 pg (26.0-34.0); MCHC 30.5 g/dL (31.0-37.0); MCV 90.2 fL (80.0-100.0); MEAN PLATELET VOLUME 10.3 fL (7.4-10.4); MONOCYTES 16.8 % (2-11); NEUTROPHILS 54.2 % (40-80); PLATELET COUNT 239 10x3/uL (130-400); RBC 3.16 10x6/uL (4.00-5.40); RDW 14.1 % (11.5-14.5); WBC 5.6 10x3/uL (4.8-10.8)
[2019-01-19 12:08] VITALS: BP 141/84
--- NOTE | 2019-01-19 13:22 | NUR ---
Reviewed chart Regular diet with 92% average po intake Pt reports eating good and no nutrition related questions at this time Encouraged good po intake RD following
--- NOTE | 2019-01-19 14:44 | NUR ---
OT NOTE: PT DOING WELL BUT C/O INCREASED PAIN IN L ANKLE. TRANSFERS WITH MIN ASSIST; FEEDING WITH SET UP; TOILET TRANSFERS WITH MIN ASSIST; HYGIENE WITH SET UP. PINEDA GUTIERREZ, OTR/L
[2019-01-19 15:26] VITALS: BP 185/80
--- NOTE | 2019-01-19 16:38 | NUR ---
Rehab Note- Received fax that [facility] has denied the patient an inpatient acute rehab stay. A peer to peer can be set up by contacting [phone] within seven business days of today 01/19/19. Thank you for this referral! Crispin Prater RN Clinical Liaison, [facility] Rehab
--- NOTE | 2019-01-19 17:01 | NUR ---
OT NOTE: PT COMPLETED TRANSFERS WITH SBA/CGA WHILE ADHERING TO NON WT BEARING PRECAUTIONS. PT COMPLETED SELF HYGIENE TASKS WITH SBA. THANK YOU, RAVINDER CISSE
[2019-01-19 20:31] VITALS: BP 148/93
[2019-01-20] VITALS: BP 133/54
[2019-01-20 05:42] VITALS: BP 142/96
--- NOTE | 2019-01-20 07:00 | NUR ---
RESTING QUIETLY IN BED, ALERT, CALM, DENIES NEEDS AT THIS TIME, CALL LIGHT AT HAND, INSTRUCTED TO CALL WITH NEEDS.
[2019-01-20 08:16] LABS: BASOPHILS 0.7 % (0-2); EOSINOPHILS 11.3 % (0-7); HEMATOCRIT 30.2 % (36.0-48.0); IMMATURE GRANULOCYTES 0.4 % (0-5); LYMPHOCYTES 23.3 % (15-50); MCHC 29.8 g/dL (31.0-37.0); MCV 90.7 fL (80.0-100.0); MEAN PLATELET VOLUME 10.4 fL (7.4-10.4); MONOCYTES 15.6 % (2-11); NEUTROPHILS 48.7 % (40-80); PLATELET COUNT 254 10x3/uL (130-400); RBC 3.33 10x6/uL (4.00-5.40); RDW 14.2 % (11.5-14.5); WBC 5.6 10x3/uL (4.8-10.8)
[2019-01-20 08:23] LABS: ANION GAP 7.6 mmol/L (8-16); CALCIUM 8.6 mg/dL (8.5-10.1); CARBON DIOXIDE 38.8 mmol/L (21.0-32.0); MAGNESIUM - SERUM 1.7 mg/dL (1.8-2.4); POTASSIUM - SERUM 3.4 mmol/L (3.5-5.1)
--- NOTE | 2019-01-20 09:11 | MORECARE ---
CASE MANAGEMENT DISCHARGE SUMMARY PATIENT: KATIE BAI ANN UNIT: [id number] ADM DATE: 01/11/19 AGE: 63 : 59 SEX: F ROOM/BED: D.1205 AUTHOR: ELIA SANTANA PHYSICIAN: REFERRING PHYSICIAN: ROXANE MACKENZIE MD DATE OF SERVICE: 01/20/19 Discharge Plan Patient Name: KATIE BAI Facility: [facility]:[place] : 1955 Planned Disposition: Anticipated Discharge Date: Discharge Date: Expected LOS: Initial Reviewer: [id number] Initial Review Date: 01/15/2019 Generated: 01/20/19 10:10 am Comments DCP- Discharge Planning Updated by [id number]: Sagrario Gupta on 01/20/19 8:[address] Patient Name: KATIE BAI Admission Status: Elective Accout number: [id number] Admission Date: 01-11-2019 : 1955 Admission Diagnosis:OTHER OSTEOMYELITIS, LOWER LEG Attending: ROXANE MACKENZIE Current LOS: 9 Anticipated DC Date: Planned Disposition: Primary Insurance: WE[employer] MEDICARE ADV Discharge Planning Comments: INPT REHAB WAS DENIED BY INSURANCE. CM WILL SEND OVER REFERRAL TO [facility] FOR SNF. CM WILL FOLLOW AND ASSIST NEEDED WITH DC PLANNING/NEEDS. Oyster Tonger: Sagrario Gupta DCP- Discharge Planning Updated by [id number]: Sagrario Gupta on 01/18/19 4:[address] Patient Name: KATIE BAI Admission Status: Elective Accout number: [id number] Admission Date: 01-11-2019 : 1955 Admission Diagnosis:OTHER OSTEOMYELITIS, LOWER LEG Attending: ROXANE MACKENZIE Current LOS: 7 Anticipated DC Date: Planned Disposition: Primary Insurance: WELLC[employer] MEDICARE ADV Discharge Planning Comments: CM SPOKE WITH [facility] IN INPT REHAB AND ORDERED CONSULT. [facility] WILL SEE TODAY. PATIENT STATES IF INS DOESN'T AUTH INPT REHAB THEN [facility] CM WILL FOLLOW AND ASSIST NEEDED. Oyster Tonger: Sagrario Gupta DCP- Discharge Planning Updated by [id number]: Sagrario Gupta on 01/16/19 3:[address] Patient Name: KATIE BAI Admission Status: Elective Accout number: [id number] Admission Date: 01-11-2019 : 1955 Admission Diagnosis:OTHER OSTEOMYELITIS, LOWER LEG Attending: ROXANE MACKENZIE Current LOS: 5 Anticipated DC Date: Planned Disposition: Primary Insurance: WE[employer] MEDICARE ADV Discharge Planning Comments: CM MET WITH PATIENT AGAIN ABOUT DC PLANNING/NEEDS. PATIENT WILL NEED INPATIENT REHAB OR SNF. CM LEFT MSG FOR [facility] ABOUT OT AND REHAB CONSULTS. ALSO PATIENT'S RESPIRATIONS ARE LABORED AND SHE IS ON 4L 02 NC. DOESN'T HAVE O2 OR NEB AT HOME. WILL PROBABLY NEED AT TIME OF DC. STATES HASN'T SEEN A WATCH TECHNICIAN, MAY NEED PULM CONSULT. CM WILL FOLLOW AND ASSIST NEEDED WITH DC PLANNING/NEEDS. Oyster Tonger: Sagrario Gupta DCP- Discharge Planning Updated by [id number]: Sagrario Gupta on 01/15/19 1:[address] Patient Name: KATIE BAI Admission Status: Elective Accout number: [id number] Admission Date: 01-11-2019 : 1955 Admission Diagnosis:OTHER OSTEOMYELITIS, LOWER LEG Attending: ROXANE MACKENZIE Current LOS: 4 Anticipated DC Date: Planned Disposition: Primary Insurance: WELL[employer] MEDICARE ADV Discharge Planning Comments: CM MET WITH PATIENT ABOUT DC PLANNING/NEEDS. STATES SHE LIVES AT [facility] IN ASSISTED LIVING. HAS EXTERNAL FIXATER ON LEFT FOOT. PATIENT SIGNED PATIENT CHOICE FORM IN CASE SHE NEEDS EXTRA SERVICES WHEN DISCHARGED. SHE CHOSE [facility] FOR [facility]ION, AND [facility] FOR 02 OR NEBULIZER NEEDS. IM SERVED. CM WILL FOLLOW AND ASSIST NEEDED WITH DC PLANNING/NEEDS. Oyster Tonger: Sagrario Gupta DCPIA - Discharge Planning Initial Assessment Updated by [id number]: Sagrario Gupta on 01/15/19 2:14 pm * Is the patient Alert and Oriented? Yes * PCP DARLENE * Pharmacy [facility] * Preadmission Environment Assisted Living * Facility Name [facility] * ADLs Independent * Equipment Crutch Walker Wheelchair * List name and contact numbers for known caregivers / representatives who currently or will assist patient after discharge: [place] [phone] * Community resources currently utilized Assisted Living * Please name any agencies selected above. [facility] * Can the patient safely return to the preadmission environment? Yes * Has this patient been hospitalized within the prior 30 days at any hospital? No Coverage Notice Reviewer: VEENA Gupta Notice Issued Date-Time: 01/15/2019 14:23 Notice Type: IM Discharge Notice Notice Delivered To: Patient Relationship to Patient: Self Rotor Blade Installer Name: Delivery Method: HAND - Hand Delivered Stacey Days: Prior Verbal Notification: Recipient Understood Notice: Yes Recipient Signature: Yes Med Rec Note Co-signed by Attending: Coverage Notice Comment: Reviewer: VEENA Gupta Notice Issued Date-Time: 01/15/2019 14:23 Notice Type: Patient Choice Letter Notice Delivered To: Patient Relationship to Patient: Self Rotor Blade Installer Name: Delivery Method: HAND - Hand Delivered Stacey Days: Prior Verbal Notification: Recipient Understood Notice: Yes Recipient Signature: Yes Med Rec Note Co-signed by Attending: Coverage Notice Comment: [facility] FOR IV INFUSION [facility] IF NEEDS O2 Reviewer: VEENA Gupta Notice Issued Date-Time: 01/16/2019 16:09 Notice Type: Patient Choice Letter Notice Delivered To: Patient Relationship to Patient: Self Rotor Blade Installer Name: Delivery Method: HAND - Hand Delivered Stacey Days: Prior Verbal Notification: Recipient Understood Notice: Yes Recipient Signature: Yes Med Rec Note Co-signed by Attending: Coverage Notice [facility] Last DP export: 01/18/19 4:42 p Patient Name: KATIE BAI Page [id number] at 0911 All edits/amendments must be made on the electronic document DICTATION DATE: 01/20/19909 HATCHERY LABORER: THADDEUS 01/20/19909 RPT#: [id number] DC DATE: STATUS: ADM IN [facility] [address] [place] [address] END OF REPORT
[2019-01-20 09:21] VITALS: BP 138/82
--- NOTE | 2019-01-20 09:32 | MORECARE ---
CASE MANAGEMENT DISCHARGE SUMMARY PATIENT: KATIE BAI ANN UNIT: [id number] ADM DATE: 01/11/19 AGE: 63 : 59 SEX: F ROOM/BED: D.1205 AUTHOR: ELIA SANTANA PHYSICIAN: REFERRING PHYSICIAN: ROXANE MACKEZNIE MD DATE OF SERVICE: 01/20/19 Discharge Plan Patient Name: KATIE BAI Facility: [facility]:[place] : 1955 Planned Disposition: Anticipated Discharge Date: Discharge Date: Expected LOS: Initial Reviewer: [id number] Initial Review Date: 01/15/2019 Generated: 01/20/19 10:32 am Comments DCP- Discharge Planning Updated by [id number]: Sagrario Gputa on 01/20/19 8:[address] Patient Name: KATIE BAI Admission Status: Elective Accout number: [id number] Admission Date: 01-11-2019 : 1955 Admission Diagnosis:OTHER OSTEOMYELITIS, LOWER LEG Attending: ROXANE MACKENZIE Current LOS: 9 Anticipated DC Date: Planned Disposition: Primary Insurance: WELL[employer] MEDICARE ADV Discharge Planning Comments: INPT REHAB WAS DENIED BY INSURANCE. CM WILL SEND OVER REFERRAL TO [facility] FOR SNF. CM WILL FOLLOW AND ASSIST NEEDED WITH DC PLANNING/NEEDS. Insulation Inspector: Sagrario Gupta Appended by Sagrario Gupta on 01/20/2019 9:25 HOUSEHOLD CHORES: CM SPOKE WITH INGE AT [facility] AND WE WILL BE WAITING FOR CALL BACK ON AUTH. DCP- Discharge Planning Updated by [id number]: Sagrario Gupta on 01/18/19 4:[address] Patient Name: KATIE BAI Admission Status: Elective Accout number: [id number] Admission Date: 01-11-2019 : 1955 Admission Diagnosis:OTHER OSTEOMYELITIS, LOWER LEG Attending: ROXANE MACKENZIE Current LOS: 7 Anticipated DC Date: Planned Disposition: Primary Insurance: WELLC[employer] MEDICARE ADV Discharge Planning Comments: CM SPOKE WITH [facility] IN INPT REHAB AND ORDERED CONSULT. [facility]UX WILL SEE TODAY. PATIENT STATES IF INS DOESN'T AUTH INPT REHAB THEN SHE WANTS TO GO TO [facility]. CM WILL FOLLOW AND ASSIST NEEDED. Insulation Inspector: Sagrario Gupta DCP- Discharge Planning Updated by [id number]: Sagrario Gupta on 01/16/19 3:[address] Patient Name: KATIE BAI Admission Status: Elective Accout number: [id number] Admission Date: 01-11-2019 : 1955 Admission Diagnosis:OTHER OSTEOMYELITIS, LOWER LEG Attending: ROXANE MACKENZIE Current LOS: 5 Anticipated DC Date: Planned Disposition: Primary Insurance: WE[employer] MEDICARE ADV Discharge Planning Comments: CM MET WITH PATIENT AGAIN ABOUT DC PLANNING/NEEDS. PATIENT WILL NEED INPATIENT REHAB OR SNF. CM LEFT MSG FOR [facility] ABOUT OT AND REHAB CONSULTS. ALSO PATIENT'S RESPIRATIONS ARE LABORED AND SHE IS ON 4L 02 NC. DOESN'T HAVE O2 OR NEB AT HOME. WILL PROBABLY NEED AT TIME OF DC. STATES HASN'T SEEN A TELECOMMUNICATIONS OPERATOR, MAY NEED PULM CONSULT. CM WILL FOLLOW AND ASSIST NEEDED WITH DC PLANNING/NEEDS. Insulation Inspector: Sagrario Gupta DCP- Discharge Planning Updated by [id number]: Sagrario Gupta on 01/15/19 1:[address] Patient Name: KATIE BAI Admission Status: Elective Accout number: [id number] Admission Date: 01-11-2019 : 1955 Admission Diagnosis:OTHER OSTEOMYELITIS, LOWER LEG Attending: ROXANE MACKENZIE Current LOS: 4 Anticipated DC Date: Planned Disposition: Primary Insurance: [facility] MEDICARE ADV Discharge Planning Comments: CM MET WITH PATIENT ABOUT DC PLANNING/NEEDS. STATES SHE LIVES AT [facility] IN ASSISTED LIVING. HAS EXTERNAL FIXATER ON LEFT FOOT. PATIENT SIGNED PATIENT CHOICE FORM IN CASE SHE NEEDS EXTRA SERVICES WHEN DISCHARGED. SHE CHOSE [facility] FOR IV INFUSION, AND [facility] FOR 02 OR NEBULIZER NEEDS. IM SERVED. CM WILL FOLLOW AND ASSIST NEEDED WITH DC PLANNING/NEEDS. Insulation Inspector: Sagrario Gupta DCPIA - Discharge Planning Initial Assessment Updated by [id number]: Sagrario Gupta on 01/15/19 2:14 pm * Is the patient Alert and Oriented? Yes * PCP DARLENE * Pharmacy [facility] * Preadmission Environment Assisted Living * Facility Name [facility] * ADLs Independent * Equipment Crutch Walker Wheelchair * List name and contact numbers for known caregivers / representatives who currently or will assist patient after discharge: [place] [phone] * Community resources currently utilized Assisted Living * Please name any agencies selected above. [facility] * Can the patient safely return to the preadmission environment? Yes * Has this patient been hospitalized within the prior 30 days at any hospital? No External Providers External Provider: [facility] Next Contact Date: Service Request Date: Service Type: Resolution: Reviewer: Comments: Coverage Notice Reviewer: VEENA Gupta Notice Issued Date-Time: 01/15/2019 14:23 Notice Type: IM Discharge Notice Notice Delivered To: Patient Relationship to Patient: Self Formulation Technician Name: Delivery Method: HAND - Hand Delivered Stacey Days: Prior Verbal Notification: Recipient Understood Notice: Yes Recipient Signature: Yes Med Rec Note Co-signed by Attending: Coverage Notice Comment: Reviewer: VEENA Gupta Notice Issued Date-Time: 01/15/2019 14:23 Notice Type: Patient Choice Letter Notice Delivered To: Patient Relationship to Patient: Self Formulation Technician Name: Delivery Method: HAND - Hand Delivered Stacey Days: Prior Verbal Notification: Recipient Understood Notice: Yes Recipient Signature: Yes Med Rec Note Co-signed by Attending: Coverage Notice Comment: [facility] FOR [facility] FOR IV INFUSION [facility] OR [facility] IF NEEDS O2 Reviewer: VEENA Gupta Notice Issued Date-Time: 01/16/2019 16:09 Notice Type: Patient Choice Letter Notice Delivered To: Patient Relationship to Patient: Self Formulation Technician Name: Delivery Method: HAND - Hand Delivered Stacey Days: Prior Verbal Notification: Recipient Understood Notice: Yes Recipient Signature: Yes Med Rec Note Co-signed by Attending: Coverage Notice Comment[facility] Last DP export: 01/20/19 8:10 a Patient Name: KATIE BAI Page [phone] at 0932 All edits/amendments must be made on the electronic document DICTATION DATE: 01/20/19931 RECREATION SPECIALIST: THADDEUS 01/20/19931 RPT#: [id number] DC DATE: STATUS: ADM IN [facility] [address] [place] [address] END OF REPORT
[2019-01-20 13:59] VITALS: BP 151/84
--- NOTE | 2019-01-20 14:24 | NUR ---
OT NOTE: PT DOING WELL; BED MOB WITH SPV; TRANSFER WITH WALKER AND MIN ASSIST FROM BED TO CHAIR. UE DRESSING AND GROOMING WITH SET UP; FEEDING WITH SET UP; EXT ASSIST WITH LE DRESSING DUE TO EXTERNAL FIXATOR. PINEDA GUTIERREZ, OTR/L
--- NOTE | 2019-01-20 15:37 | MORECARE ---
CASE MANAGEMENT DISCHARGE SUMMARY PATIENT: KATIE BAI ANN UNIT: [id number] ADM DATE: 01/11/19 AGE: 63 : 59 SEX: F ROOM/BED: D.1205 AUTHOR: ELIA SANTANA PHYSICIAN: REFERRING PHYSICIAN: ROXANE MACKENZIE MD DATE OF SERVICE: 01/20/19 Discharge Plan Patient Name: KATIE BAI Facility: [facility]:[place] : 1955 Planned Disposition: Anticipated Discharge Date: Discharge Date: Expected LOS: Initial Reviewer: [id number] Initial Review Date: 01/15/2019 Generated: 01/20/19 4:37 pm Comments DCP- Discharge Planning Updated by [email or web address]: Sagrario Gupta on 01/20/19 8:[address] Patient Name: KATIE BAI Admission Status: Elective Accout number: [id number] Admission Date: 01-11-2019 : 1955 Admission Diagnosis:OTHER OSTEOMYELITIS, LOWER LEG Attending: ROXANE MACKENZIE Current LOS: 9 Anticipated DC Date: Planned Disposition: Primary Insurance: [employer] MED[employer]ARE ADV Discharge Planning Comments: INPT REHAB WAS DENIED BY INSURANCE. CM WILL SEND OVER REFERRAL TO [facility] FOR SNF. CM WILL FOLLOW AND ASSIST NEEDED WITH DC PLANNING/NEEDS. Luggage Attendant: Sagrario Gupta Appended by Sagrario Gupta on 01/20/2019 9:25 INSTRUCTOR FLYING: CM SPOKE WITH INGE AT [facility] AND WE WILL BE WAITING FOR CALL BACK ON AUTH. DCP- Discharge Planning Updated by [id number]: Sagrario Gupta on 01/18/19 4:[address] Patient Name: KATIE BAI Admission Status: Elective Accout number: [id number] Admission Date: 01-11-2019 : 1955 Admission Diagnosis:OTHER OSTEOMYELITIS, LOWER LEG Attending: ROXANE MACKENZIE Current LOS: 7 Anticipated DC Date: Planned Disposition: Primary Insurance: [employer] MEDICARE ADV Discharge Planning Comments: CM SPOKE WITH MARGAUX IN INPT REHAB AND ORDERED CONSULT. MARGAUX WILL SEE TODAY. PATIENT STATES IF INS DOESN'T AUTH INPT REHAB THEN SHE WANTS TO GO TO [facility]. CM WILL FOLLOW AND ASSIST NEEDED. Luggage Attendant: Sagrario Gupta DCP- Discharge Planning Updated by [id number]: Sagrario Gupta on 01/16/19 3:[address] Patient Name: KATIE BAI Admission Status: Elective Accout number: [id number] Admission Date: 01-11-2019 : 1955 Admission Diagnosis:OTHER OSTEOMYELITIS, LOWER LEG Attending: ROXANE MACKENZIE Current LOS: 5 Anticipated DC Date: Planned Disposition: Primary Insurance: WE[employer] MEDICARE ADV Discharge Planning Comments: CM MET WITH PATIENT AGAIN ABOUT DC PLANNING/NEEDS. PATIENT WILL NEED INPATIENT REHAB OR SNF. CM LEFT MSG FOR [facility] ABOUT OT AND REHAB CONSULTS. ALSO PATIENT'S RESPIRATIONS ARE LABORED AND SHE IS ON 4L 02 NC. DOESN'T HAVE O2 OR NEB AT HOME. WILL PROBABLY NEED AT TIME OF DC. STATES HASN'T SEEN A LAYAWAY CLERK, MAY NEED PULM CONSULT. CM WILL FOLLOW AND ASSIST NEEDED WITH DC PLANNING/NEEDS. Luggage Attendant: Sagrario Gupta DCP- Discharge Planning Updated by [email or web address]: Sagrario Gupta on 01/15/19 1:[address] Patient Name: KATIE BAI Admission Status: Elective Accout number: [id number] Admission Date: 01-11-2019 : 1955 Admission Diagnosis:OTHER OSTEOMYELITIS, LOWER LEG Attending: ROXANE MACKENZIE Current LOS: 4 Anticipated DC Date: Planned Disposition: Primary Insurance: [facility] MEDICARE ADV Discharge Planning Comments: CM MET WITH PATIENT ABOUT DC PLANNING/NEEDS. STATES SHE LIVES AT [facility] IN ASSISTED LIVING. HAS EXTERNAL FIXATER ON LEFT FOOT. PATIENT SIGNED PATIENT CHOICE FORM IN CASE SHE NEEDS EXTRA SERVICES WHEN DISCHARGED. SHE [facility]OSE [facility] FOR [facility]ION, AND [facility] FOR 02 OR NEBULIZER NEEDS. IM SERVED. CM WILL FOLLOW AND ASSIST NEEDED WITH DC PLANNING/NEEDS. Luggage Attendant: Sagrario Gupta DCPIA - Discharge Planning Initial Assessment Updated by [id number]: Sagrario Gupta on 01/15/19 2:14 pm * Is the patient Alert and Oriented? Yes * PCP DARLENE * Pharmacy [facility] * Preadmission Environment Assisted Living * Facility Name [facility] * ADLs Independent * Equipment Crutch Walker Wheelchair * List name and contact numbers for known caregivers / representatives who currently or will assist patient after discharge: [place] [phone] * Community resources currently utilized Assisted Living * Please name any agencies selected above. [facility] * Can the patient safely return to the preadmission environment? Yes * Has this patient been hospitalized within the prior 30 days at any hospital? No Coverage Notice Reviewer: VEENA Gupta Notice Issued Date-Time: 01/15/2019 14:23 Notice Type: IM Discharge Notice Notice Delivered To: Patient Relationship to Patient: Self Destination Coordinator Name: Delivery Method: HAND - Hand Delivered Stacey Days: Prior Verbal Notification: Recipient Understood Notice: Yes Recipient Signature: Yes Med Rec Note Co-signed by Attending: Coverage Notice Comment: Reviewer: VEENA Gupta Notice Issued Date-Time: 01/15/2019 14:23 Notice Type: Patient Choice Letter Notice Delivered To: Patient Relationship to Patient: Self Destination Coordinator Name: Delivery Method: HAND - Hand Delivered Stacey Days: Prior Verbal Notification: Recipient Understood Notice: Yes Recipient Signature: Yes Med Rec Note Co-signed by Attending: Coverage Notice Comment: [facility] FOR IV INFUSION [facility] IF NEEDS O2 Reviewer: VEENA Gupta Notice Issued Date-Time: 01/16/2019 16:09 Notice Type: Patient Choice Letter Notice Delivered To: Patient Relationship to Patient: Self Destination Coordinator Name: Delivery Method: HAND - Hand Delivered Stacey Days: Prior Verbal Notification: Recipient Understood Notice: Yes Recipient Signature: Yes Med Rec Note Co-signed by Attending: Coverage Notice Comment: [facility] NEEDS SNF Last DP export: 01/20/19 8:32 a Patient Name: KATIE BAI Page 80751 at 1537 All edits/amendments must be made on the electronic document DICTATION DATE: 01/20/19 1537 RAG BALER: THADDEUS 01/20/19 1537 RPT#: [id number] DC DATE: STATUS: ADM IN [address] [place] [address] END OF REPORT
[2019-01-20 17:03] VITALS: BP 148/78
[2019-01-20 20:00] VITALS: BP 128/63
--- NOTE | 2019-01-20 20:00 | NUR ---
LYING IN BED. ALERT AND ORIENTED X4. TALKATIVE WITH STAFF. RESP IRREG, LABORED. O2 @ 6L/HFC. BBS COARSE IN RT LOBES, CTA IN LT. REPORTS PROD COUGH WITH WHITE SPUTUM. PICC NOTED TO LT UPPER ARM IS SALINE LOCKED. EXTERNAL FIXATOR NOTED TO LT ANKLE WITH SUTURES AND DRSG. DENIES PAIN AT THIS TIME. SR ELEVATED X2. CL IN REACH.
--- NOTE | 2019-01-20 20:05 | NUR ---
SITTING ON SIDE OF BED RECEIVING UD. RESP IRREG. SOB NOTED. O2 @ 3L/NC. BBS EXP WHEEZES. REPORTS PROD COUGH WITH BROWN SPUTUM. BRUISES NOTED TO RT ARM. CONCERNED ANKLES ARE SWOLLEN. 2+ EDEMA NOTED TO LLE AND 1+ EDEMA NOTED TO RLE. SALINE LOCK NOTED TO LT AC. REPORTS PAIN IN ANKLE AND RIBS 7 ON PAIN SCALE. REQUESTS PAIN MED WITH 2100 MED PASS. AMBULATORY. SR ELEVATED X2. CL IN REACH.
--- NOTE | 2019-01-20 22:30 | NUR ---
MEDICATED WITH MORPHINE FOR C/O PAIN IN LT ANKLE. CL IN REACH.
--- NOTE | 2019-01-20 22:30 | NUR ---
REQUESTS PAIN MED. RATES PAIN IN LT ANKLE 8. MEDICATED WITH MORHPINE ORDERED. CL IN REACH.
[2019-01-21 00:30] VITALS: BP 162/90
--- NOTE | 2019-01-21 03:36 | NUR ---
HAS RESTED WELL SO FAR THIS SHIFT. CL IN REACH.
[2019-01-21 04:30] VITALS: BP 136/80
[2019-01-21 07:07] LABS: ANION GAP 8.5 mmol/L (8-16); CALCIUM 8.5 mg/dL (8.5-10.1); CARBON DIOXIDE 38.8 mmol/L (21.0-32.0); MAGNESIUM - SERUM 1.6 mg/dL (1.8-2.4); POTASSIUM - SERUM 3.3 mmol/L (3.5-5.1)
[2019-01-21 07:09] LABS: CREATININE - SERUM 1.5 mg/dL (0.6-1.3)
--- NOTE | 2019-01-21 07:20 | NUR ---
INITIAL ROUNDING ON THE PATIENT, CAREGIVERS INTRODUCED. PATIENT WAS RESTING WITH EYES CLOSED, SHE DENIES PAIN AT THIS TIME. O2 VIA NC IN PLACE.
[2019-01-21 10:11] VITALS: BP 124/80
--- NOTE | 2019-01-21 13:36 | NUR ---
Nutrition Follow Up: Pt stated that her appetite was fair. She said that she would like a mechanical soft diet because some things are difficult for her to chew. Pt agreed to try Santiago BID. RD encouraged pt to increase po intake as able. Diet: Regular PO Intake: 88% meal avg BM: 01/10/19 - no BM x 11 days? No new wt Labs reviewed Meds noted including Lasix Will change diet to regular mechanical diet. Will order Santiago BID. RD following.
[2019-01-21 14:35] VITALS: BP 119/73
--- NOTE | 2019-01-21 16:37 | MORECARE ---
CASE MANAGEMENT DISCHARGE SUMMARY PATIENT: KATIE BAI ANN UNIT: [id number] ADM DATE: 01/11/19 AGE: 63 : 59 SEX: F ROOM/BED: D.1205 AUTHOR: ELIA SANTANA PHYSICIAN: REFERRING PHYSICIAN: ROXANE MACKENZIE MD DATE OF SERVICE: 01/21/19 Discharge Plan Patient Name: KATIE BAI Facility: [facility]:[place] : 1955 Planned Disposition: Anticipated Discharge Date: Discharge Date: Expected LOS: Initial Reviewer: [id number] Initial Review Date: 01/15/2019 Generated: 01/21/19 5:37 pm Comments DCP- Discharge Planning Updated by [email or web address]: Sagrario Gupta on 01/20/19 8:[address] Patient Name: KATIE BAI Admission Status: Elective Accout number: [id number] Admission Date: 01-11-2019 : 1955 Admission Diagnosis:OTHER OSTEOMYELITIS, LOWER LEG Attending: ROXANE MACKENZIE Current LOS: 9 Anticipated DC Date: Planned Disposition: Primary Insurance: WE[employer] MEDICARE ADV Discharge Planning Comments: INPT REHAB WAS DENIED BY INSURANCE. CM WILL SEND OVER REFERRAL TO [facility] FOR SNF. CM WILL FOLLOW AND ASSIST NEEDED WITH DC PLANNING/NEEDS. Prepper: Sagrario Gupta Appended by Sagrario Gupta on 01/20/2019 9:25 COUNSELOR MARRIAGE AND FAMILY: CM SPOKE WITH INGE AT [facility] AND WE WILL BE WAITING FOR CALL BACK ON AUTH. DCP- Discharge Planning Updated by [email or web address]: Sagrario Gupta on 01/18/19 4:[address] Patient Name: KATIE BAI Admission Status: Elective Accout number: [id number] Admission Date: 01-11-2019 : 1955 Admission Diagnosis:OTHER OSTEOMYELITIS, LOWER LEG Attending: ROXANE MACKENZIE Current LOS: 7 Anticipated DC Date: Planned Disposition: Primary Insurance: WE[employer] MEDICARE ADV Discharge Planning Comments: CM SPOKE WITH MARGAUX IN INPT REHAB AND ORDERED CONSULT. MARGAUX WILL SEE TODAY. PATIENT STATES IF INS DOESN'T AUTH INPT REHAB THEN SHE WANTS TO GO TO [facility]. CM WILL FOLLOW AND ASSIST NEEDED. Prepper: Sagrario Gupta DCP- Discharge Planning Updated by [email or web address]: Sagrario Gupta on 01/16/19 3:[address] Patient Name: KATIE BAI Admission Status: Elective Accout number: [id number] Admission Date: 01-11-2019 : 1955 Admission Diagnosis:OTHER OSTEOMYELITIS, LOWER LEG Attending: ROXANE MACKENZIE Current LOS: 5 Anticipated DC Date: Planned Disposition: Primary Insurance: [employer] MEDICARE ADV Discharge Planning Comments: CM MET WITH PATIENT AGAIN ABOUT DC PLANNING/NEEDS. PATIENT WILL NEED INPATIENT REHAB OR SNF. CM LEFT MSG FOR [facility] ABOUT OT AND REHAB CONSULTS. ALSO PATIENT'S RESPIRATIONS ARE LABORED AND SHE IS ON 4L 02 NC. DOESN'T HAVE O2 OR NEB AT HOME. WILL PROBABLY NEED AT TIME OF DC. STATES HASN'T SEEN A ENVIRONMENTAL SERVICES AIDE, MAY NEED PULM CONSULT. CM WILL FOLLOW AND ASSIST NEEDED WITH DC PLANNING/NEEDS. Prepper: Sagrario Gupta DCP- Discharge Planning Updated by [id number]: Sagrario Gupta on 01/15/19 1:[address] Patient Name: KATIE BAI Admission Status: Elective Accout number: [id number] Admission Date: 01-11-2019 : 1955 Admission Diagnosis:OTHER OSTEOMYELITIS, LOWER LEG Attending: ROXANE MACKENZIE Current LOS: 4 Anticipated DC Date: Planned Disposition: Primary Insurance: [facility] MEDICARE ADV Discharge Planning Comments: CM MET WITH PATIENT ABOUT DC PLANNING/NEEDS. STATES SHE LIVES AT [facility] IN ASSISTED LIVING. HAS EXTERNAL FIXATER ON LEFT FOOT. PATIENT SIGNED PATIENT CHOICE FORM IN CASE SHE NEEDS EXTRA SERVICES WHEN DISCHARGED. SHE CHOSE [facility], [facility] FOR [facility]USION, AND [facility] FOR 02 OR NEBULIZER NEEDS. IM SERVED. CM WILL FOLLOW AND ASSIST NEEDED WITH DC PLANNING/NEEDS. Prepper: Sagrario Gupta DCPIA - Discharge Planning Initial Assessment Updated by [id number]: Sagrario Gupta on 01/15/19 2:14 pm * Is the patient Alert and Oriented? Yes * PCP DARLENE * Pharmacy [facility] * Preadmission Environment Assisted Living * Facility Name [facility] * ADLs Independent * Equipment Crutch Walker Wheelchair * List name and contact numbers for known caregivers / representatives who currently or will assist patient after discharge: [place], * Community resources currently utilized Assisted Living * Please name any agencies selected above. [facility] * Can the patient safely return to the preadmission environment? Yes * Has this patient been hospitalized within the prior 30 days at any hospital? No External Providers External Provider: JUAN ALBERTO Neves Next Contact Date: Service Request Date: Service Type: Resolution: Reviewer: Comments: Coverage Notice Reviewer: VEENA Gupta Notice Issued Date-Time: 01/15/2019 14:23 Notice Type: IM Discharge Notice Notice Delivered To: Patient Relationship to Patient: Self Police Dispatcher Name: Delivery Method: HAND - Hand Delivered Stacey Days: Prior Verbal Notification: Recipient Understood Notice: Yes Recipient Signature: Yes Med Rec Note Co-signed by Attending: Coverage Notice Comment: Reviewer: VEENA Gupta Notice Issued Date-Time: 01/15/2019 14:23 Notice Type: Patient Choice Letter Notice Delivered To: Patient Relationship to Patient: Self Police Dispatcher Name: Delivery Method: HAND - Hand Delivered Stacey Days: Prior Verbal Notification: Recipient Understood Notice: Yes Recipient Signature: Yes Med Rec Note Co-signed by Attending: Coverage Notice Comment: [facility] FOR IV INFUSION [facility] IF NEEDS O2 Reviewer: VEENA Gupta Notice Issued Date-Time: 01/16/2019 16:09 Notice Type: Patient Choice Letter Notice Delivered To: Patient Relationship to Patient: Self Police Dispatcher Name: Delivery Method: HAND - Hand Delivered Stacey Days: Prior Verbal Notification: Recipient Understood Notice: Yes Recipient Signature: Yes Med Rec Note Co-signed by Attending: Coverage Notice Comment: [facility] SNF Last DP export: 01/20/19 2:37 p Patient Name: KATIE BAI Page [phone] at 1637 All edits/amendments must be made on the electronic document DICTATION DATE: 01/21/191636 SALT MANAGER: THADDEUS 01/21/191636 RPT#: [id number] DC DATE: STATUS: ADM IN [facility] [address] [place] [address] END OF REPORT
[2019-01-21 17:42] VITALS: BP 138/80
--- NOTE | 2019-01-21 19:26 | NUR ---
OT NOTE: PT COMPLETED GROOMING TASKS WITH SET UP WHILE SITTING UPRIGHT IN CHAIR. PT COMPLETED SITTING BALANCE AXS WITH SPV. PT COMPLETED BUE AROM EXS FOR INCREASED UB STRENGTH TO INCREASE SAFETY AND I WITH TRANSFERS WHILE ADHERING TO WB PRECAUTIONS. THANK YOU, RAVINDER CISSE
[2019-01-21 20:00] VITALS: BP 153/72
--- NOTE | 2019-01-21 20:38 | NUR ---
VANCOMYCIN TROUGH WAS ELEVATED AT 37.6, TEN HOURS POST DOSE. WILL HOLD FUTHER DOSES AND ORDER A RANDOM FOR 3-1. PTS SCR INCREASED FROM 1-1.5 SINCE YESTERDAY. NO NEW RENALLY ELIMINATED MEDICATIONS HAVE BEEN ADDED.
[2019-01-22] VITALS: BP 128/71; BP 136/81
[2019-01-22 04:00] VITALS: BP 142/84
--- NOTE | 2019-01-22 07:10 | NUR ---
INITIAL ROUNDING ON THE PATIENT, SHE IS RESTING IN THE BED, EYES CLOSED. O2 IN PLACE VIA NC, NO S/S OF SOB, DISTRESS NOTED
[2019-01-22 07:59] LABS: ANION GAP 13.2 mmol/L (8-16); CALCIUM 8.5 mg/dL (8.5-10.1); CARBON DIOXIDE 32.2 mmol/L (21.0-32.0); CREATININE - SERUM 2.4 mg/dL (0.6-1.3); MAGNESIUM - SERUM 1.8 mg/dL (1.8-2.4); POTASSIUM - SERUM 3.4 mmol/L (3.5-5.1); VANCOMYCIN - RANDOM 31.9 ug/mL (10.0-20.0)
[2019-01-22 08:00] VITALS: BP 149/90
[2019-01-22 13:10] VITALS: BP 140/103
--- NOTE | 2019-01-22 14:53 | MORECARE ---
CASE MANAGEMENT DISCHARGE SUMMARY PATIENT: KATIE BAI ANN UNIT: [id number] ADM DATE: 01/11/19 AGE: 63 : 59 SEX: F ROOM/BED: D.1205 AUTHOR: ELIA SANTANA PHYSICIAN: REFERRING PHYSICIAN: ROXANE MACKENZIE MD DATE OF SERVICE: 01/22/19 Discharge Plan Patient Name: KATIE BAI Facility: [facility]:[place] : 1955 Planned Disposition: Anticipated Discharge Date: Discharge Date: Expected LOS: Initial Reviewer: [id number] Initial Review Date: 01/15/2019 Generated: 01/22/19 3:52 pm Comments DCP- Discharge Planning Updated by [id number]: Sagrario Gupta on 01/22/19 1:[address] Patient Name: KATIE BAI Admission Status: Elective Accout number: [id number] Admission Date: 01-11-2019 : 1955 Admission Diagnosis:OTHER OSTEOMYELITIS, LOWER LEG Attending: ROXANE MACKENZIE Current LOS: 11 Anticipated DC Date: Planned Disposition: Primary Insurance: [employer] MEDICARE ADV Discharge Planning Comments: RUSTY BROWN RECEIVED AND FAXED TO [facility]. NURSING FACILITY STATES NOW STILL WAITING ON AUTH FROM INSURANCE [employer]. CM TO FOLLOW AND ASSIST. Canvas Worker Apprentice: Sagrario Gupta DCP- Discharge Planning Updated by [id number]: Sagrario Gupta on 01/20/19 8:[address] Patient Name: KATIE BAI Admission Status: Elective Accout number: [id number] Admission Date: 01-11-2019 : 1955 Admission Diagnosis:OTHER OSTEOMYELITIS, LOWER LEG Attending: ROXANE MACKENZIE Current LOS: 9 Anticipated DC Date: Planned Disposition: Primary Insurance: [employer] MEDICARE ADV Discharge Planning Comments: INPT REHAB WAS DENIED BY INSURANCE. CM WILL SEND OVER REFERRAL TO [facility] FOR SNF. CM WILL FOLLOW AND ASSIST NEEDED WITH DC PLANNING/NEEDS. Canvas Worker Apprentice: Sagrario Gupta Appended by Sagrario Gupta on 01/20/2019 9:25 PAPER PRODUCTS PRINTER: CM SPOKE WITH INGE AT [facility] AND WE WILL BE WAITING FOR CALL BACK ON AUTH. DCP- Discharge Planning Updated by [id number]: Sagrario Gupta on 01/18/19 4:[address] Patient Name: KATIE BAI Admission Status: Elective Accout number: [id number] Admission Date: 01-11-2019 : 1955 Admission Diagnosis:OTHER OSTEOMYELITIS, LOWER LEG Attending: ROXANE MACKENZIE Current LOS: 7 Anticipated DC Date: Planned Disposition: Primary Insurance: [employer] MEDICARE ADV Discharge Planning Comments: CM SPOKE WITH MARGAUX IN INPT REHAB AND ORDERED CONSULT. MARGAUX WILL SEE TODAY. PATIENT STATES IF INS DOESN'T AUTH INPT REHAB THEN SHE WANTS TO GO TO [facility]. CM WILL FOLLOW AND ASSIST NEEDED. Canvas Worker Apprentice: Sagrario Gupta DCP- Discharge Planning Updated by [id number]: Sagrario Gupta on 01/16/19 3:[address] Patient Name: KATIE BAI Admission Status: Elective Accout number: [id number] Admission Date: 01-11-2019 : 1955 Admission Diagnosis:OTHER OSTEOMYELITIS, LOWER LEG Attending: ROXANE MACKENZIE Current LOS: 5 Anticipated DC Date: Planned Disposition: Primary Insurance: [employer] MEDICARE ADV Discharge Planning Comments: CM MET WITH PATIENT AGAIN ABOUT DC PLANNING/NEEDS. PATIENT WILL NEED INPATIENT REHAB OR SNF. CM LEFT MSG FOR [facility] ABOUT OT AND REHAB CONSULTS. ALSO PATIENT'S RESPIRATIONS ARE LABORED AND SHE IS ON 4L 02 NC. DOESN'T HAVE O2 OR NEB AT HOME. WILL PROBABLY NEED AT TIME OF DC. STATES HASN'T SEEN A WIRELESS FIELD TECHNICIAN, MAY NEED PULM CONSULT. CM WILL FOLLOW AND ASSIST NEEDED WITH DC PLANNING/NEEDS. Canvas Worker Apprentice: Sagrario Gupta DCP- Discharge Planning Updated by [id number]: Sagrario Gupta on 01/15/19 1:[address] Patient Name: KATIE BAI Admission Status: Elective Accout number: [id number] Admission Date: 01-11-2019 : 1955 Admission Diagnosis:OTHER OSTEOMYELITIS, LOWER LEG Attending: ROXANE MACKENZIE Current LOS: 4 Anticipated DC Date: Planned Disposition: Primary Insurance: [employer] MEDICARE ADV Discharge Planning Comments: CM MET WITH PATIENT ABOUT DC PLANNING/NEEDS. STATES SHE LIVES AT [facility] IN ASSISTED LIVING. HAS EXTERNAL FIXATER ON LEFT FOOT. PATIENT SIGNED PATIENT CHOICE FORM IN CASE SHE NEEDS EXTRA SERVICES WHEN DISCHARGED. SHE CHOSE [facility], [facility] FOR IV INF[facility]ION, AND [facility] FOR 02 OR NEBULIZER NEEDS. IM SERVED. CM WILL FOLLOW AND ASSIST NEEDED WITH DC PLANNING/NEEDS. Canvas Worker Apprentice: Sagrario Gupta DCPIA - Discharge Planning Initial Assessment Updated by [id number]: Sagrario Gupta on 01/15/19 2:14 pm * Is the patient Alert and Oriented? Yes * PCP DARLENE * Pharmacy [facility] * Preadmission Environment Assisted Living * [facility] * ADLs Independent * Equipment Crutch Walker Wheelchair * List name and contact numbers for known caregivers / representatives who currently or will assist patient after discharge: [place] [phone] * Community resources currently utilized Assisted Living * Please name any agencies selected above. [facility] * Can the patient safely return to the preadmission environment? Yes * Has this patient been hospitalized within the prior 30 days at any hospital? No Coverage Notice Reviewer: [email or web address] Gupta Notice Issued Date-Time: 01/15/2019 14:23 Notice Type: IM Discharge Notice Notice Delivered To: Patient Relationship to Patient: Self School Examiner Name: Delivery Method: HAND - Hand Delivered Stacey Days: Prior Verbal Notification: Recipient Understood Notice: Yes Recipient Signature: Yes Med Rec Note Co-signed by Attending: Coverage Notice Comment: Reviewer: [id number] Gupta Notice Issued Date-Time: 01/15/2019 14:23 Notice Type: Patient Choice Letter Notice Delivered To: Patient Relationship to Patient: Self School Examiner Name: Delivery Method: HAND - Hand Delivered Stacey Days: Prior Verbal Notification: Recipient Understood Notice: Yes Recipient Signature: Yes Med Rec Note Co-signed by Attending: Coverage Notice Comment: [facility] FOR IV INFUSION [facility] IF NEEDS O2 Reviewer: [id number] Tahmian Gupta Notice Issued Date-Time: 01/16/2019 16:09 Notice Type: Patient Choice Letter Notice Delivered To: Patient Relationship to Patient: Self School Examiner Name: Delivery Method: HAND - Hand Delivered Stacey Days: Prior Verbal Notification: Recipient Understood Notice: Yes Recipient Signature: Yes Med Rec Note Co-signed by Attending: Coverage Notice Comment: [facility] Last DP export: 01/21/19 3:37 p Patient Name: KATIE BAI Page 85496 at 1453 All edits/amendments must be made on the electronic document DICTATION DATE: 01/22/191451 DIVISION TRAFFIC SUPERINTENDENT: THADDEUS 01/22/191451 RPT#: [id number] DC DATE: STATUS: ADM IN [facility] [address] [place] [address] END OF REPORT
--- NOTE | 2019-01-22 16:21 | NUR ---
OT NOTE: PERFORMED BED MOB WITH SBA; SITTING BALANCE WITHOUT ASSIST; TRANSFER FROM BED TO CHAIR WITH MIN ASSIST AND USE OF RW; SIMPLE GROOMING AND FEEDING WITH SET UP PINEDA GUTIERREZ OTR/L
--- NOTE | 2019-01-22 17:12 | NUR ---
OT NOTE: PT COMPLETED HYGIENE/GROOMING TASKS WHILE SITTING IN CHAIR WITH SET UP. PT COMPLETED BUE AROM AXS. PT COMPLETED SITTING BALANCE WITH SPV/SBA. THANK YOU, RAVINDER CISSE
[2019-01-22 17:16] VITALS: BP 157/88
[2019-01-22 20:00] VITALS: BP 138/80
[2019-01-23 04:00] VITALS: BP 91/76
--- NOTE | 2019-01-23 07:15 | NUR ---
INITIAL ROUNDING ON THE PATIENT, RT IS IN THE ROOM, HAS JUST DONE A STAT BLOOD GAS FOR LOW O2 READING, THE PATIENT IS SATING AT 97% AT THIS TIME, STATES SHE IS FEELING OK, NO S/S OF SOB NOTED. O2 VIA NC AT 10 LPM AT THIS TIME. RT IS MANAGING THE PATIENT/O2 SAT AT THIS TIME. PATIENT DENIES PAIN, LAB HERE TO COLLECT BLOOD
[2019-01-23 07:58] VITALS: BP 139/88
[2019-01-23 08:21] LABS: ANION GAP 7.9 mmol/L (8-16); CALCIUM 8.6 mg/dL (8.5-10.1); CARBON DIOXIDE 37.2 mmol/L (21.0-32.0); CREATININE - SERUM 2.6 mg/dL (0.6-1.3); MAGNESIUM - SERUM 1.8 mg/dL (1.8-2.4); POTASSIUM - SERUM 4.1 mmol/L (3.5-5.1); VANCOMYCIN - RANDOM 22.3 ug/mL (10.0-20.0)
--- NOTE | 2019-01-23 08:26 | NUR ---
PAGED DR FAUSTIN AT THIS TIME,[phone] TO GIVE PATIENT STATUS UPDATE R/T BLOOD GAS RESULTS LOW O2 SAT READINGS EARLIER.
--- NOTE | 2019-01-23 08:53 | NUR ---
DR FAUSTIN RETURNED THE PAGE, ORDERED A PULMONARY CONSULT. ODALYS RUST ORDERED LABS. PATIENT IS AWAKE, ALERT AND NO S/S OF SOB NOTED.
[2019-01-23] MEDS ORDERED: VANCOMYCIN 1 GM/1 G1 IV (09:39)
--- NOTE | 2019-01-23 09:50 | NUR ---
CALLED AND REPORTED ELEVATED D DIMER RESULTS TO ODALYS RUST AT THIS TIME. RESULTS 2.51, NO NEW ORDERS AT THIS TIME
[2019-01-23 13:34] VITALS: BP 127/73
[2019-01-23 16:00] VITALS: BP 129/78
--- NOTE | 2019-01-23 19:10 | NUR ---
AROUSES EASILY AND DENIES PAIN AT THIS TIME. LUNGS ARE DEMINISHED IN ALL SINGLETARY SRX2 BED WAS UP AND I PUT IN LOW POSITION. EXTERNAL FIXATER IN PLACE WITH DRSGS TO PIN SITES. SKIN WARM AND DRY IV TO PIC IN LEFT ARM NS AT 75 INFUSING CALL LIGHT IS IN PLACE.
[2019-01-23 20:19] VITALS: BP 145/85
--- NOTE | 2019-01-23 21:30 | NUR ---
ASSISTED UP TO BSC TOLERATED WELL
[2019-01-24 00:36] VITALS: BP 129/63
--- NOTE | 2019-01-24 02:25 | NUR ---
I AGREE WITH DEPUTY PROSECUTING ATTORNEY ASSESSMENT THIS SHIFT.
[2019-01-24 04:56] VITALS: BP 126/80
--- NOTE | 2019-01-24 05:38 | NUR ---
DRSG CHANGE TO LEFT FOOT COMPLETED USING PATROLEUM GUAZE TO PIN SITES. ATTEMPTED BLOOD DRAW FROM PICC LINE WITH NO SUCCESS. FLUSHED EASILY WITH 20 TOTAL CC
--- NOTE | 2019-01-24 07:10 | NUR ---
INITIAL ROUNDING ON THE PATIENT, SHE IS AWAKE AND TALKING TO HER MOTHER ON THE CELL PHONE, SOB NOTED, O2 VIA NC IN PLACE, AT 4 LPM. PATIENT REQUESTED "PAIN MED WHEN YOU COME BACK, NOT URGENT"
--- NOTE | 2019-01-24 08:45 | NUR ---
CALLED AND SPOKE TO MICHAELLE IN THE PHARMACY, REQUESTING MUCINEX FOR THE PATIENT FOR THE DOSE DUE NOW
[2019-01-24 08:51] VITALS: BP 115/66
[2019-01-24 13:34] VITALS: BP 142/89
--- NOTE | 2019-01-24 19:46 | NUR ---
PATIENT RESTING IN BED AND DENIES NEEDS AT THIS TIME. NO S/S OF DISTRESS. BED IN LOWEST POSITION AND CALL LIGHT WITHIN REACH. ENCOURAGED THE PATIENT TO CALL IF SHE HAS NEEDS. WILL CONTINUE TO MONITOR.
[2019-01-24 20:00] VITALS: BP 145/89
[2019-01-25] VITALS: BP 137/83
[2019-01-25 04:00] VITALS: BP 144/86
--- NOTE | 2019-01-25 07:10 | NUR ---
PT RESTING IN BED, EYES OPEN. PT UP WITH ASSIST. EXTERNAL FIXATION OF LEFT ANKLE. PT ON ELECTROLYTE PROTOCOL. PT'S BUTTOCKS RED. PT ON 5.5L O2, HIGHFLOW NC. BIPAP @ BEDSIDE PRN. LEFT UPPER ARM PICC, NS INFUSING @ 75ML/HR. UNHABLE TO DRAW FROM PICC LINE, UNABLE TO FLUSH. PT RECEIVES LOVENOX FOR DVT PROPHALAXYSIS. NO C/O PAIN. NO S/S OF ACUTE DISTRESS NOTED. CALL LIGHT IN REACH. WILL CONTINUE TO MONITOR.
[2019-01-25 07:34] LABS: BASOPHILS 0 % (0-2); EOSINOPHILS 0 % (0-7); HEMATOCRIT 27.3 % (36.0-48.0); HEMOGLOBIN 8.5 g/dL (12-16); IMMATURE GRANULOCYTES 0.5 % (0-5); LYMPHOCYTES 5.5 % (15-50); MCHC 31.1 g/dL (31.0-37.0); MCV 86.7 fL (80.0-100.0); MEAN PLATELET VOLUME 10.1 fL (7.4-10.4); MONOCYTES 3.4 % (2-11); NEUTROPHILS 90.6 % (40-80); PLATELET COUNT 281 10x3/uL (130-400); RBC 3.15 10x6/uL (4.00-5.40); RDW 14.3 % (11.5-14.5); WBC 10.7 10x3/uL (4.8-10.8)
[2019-01-25 07:57] LABS: ANION GAP 13.2 mmol/L (8-16); CALCIUM 8.5 mg/dL (8.5-10.1); CREATININE - SERUM 2.6 mg/dL (0.6-1.3); POTASSIUM - SERUM 4.2 mmol/L (3.5-5.1); VANCOMYCIN - RANDOM 13.4 ug/mL (10.0-20.0)
[2019-01-25 08:19] VITALS: BP 146/91
[2019-01-25 09:03] LABS: ERYTHROCYTE SEDIMENTATION RATE 55 mm/hr (0-30)
--- NOTE | 2019-01-25 09:48 | NUR ---
ALERT AND ORIENTED X4. UP WITH STAND BY ASSIST. AGREE WITH ROOF BOLTING COAL MINER ASSESSMENT. BIPAP PRN. O2-5.5L HIGH FLOW. DONNA RESUMES PLAN OF CARE AND SAFETY PRECAUTIONS. NO SCDs. RECIEVES LOVENOX INJ.
[2019-01-25 16:52] VITALS: BP 147/86
--- NOTE | 2019-01-25 18:30 | NUR ---
PT RESTING IN BED, EYES OPEN. NO C/O PAIN. NO S/S OF ACUTE DISTRESS NOTED. PT DENIES ANYTHING FURTHER AT THIS TIME. CALL LIGHT IN REACH. WILL CONTINUE TO MONITOR.
[2019-01-25 20:00] VITALS: BP 144/87
[2019-01-26 01:00] VITALS: BP 157/85
[2019-01-26 05:00] VITALS: BP 141/93
--- NOTE | 2019-01-26 07:20 | NUR ---
PT RESTING IN BED, EYES OPEN. PT ALERT AND ORIENTED. NO C/O PAIN. NO S/S OF ACUTE DISTRESS NOTED. PT UP WITH ASSIST. EXTERNAL FIXATION OF LEFT ANKLE, DRESSING INTACT. BOTTOM RED. PT ON ELECTROLYTE PROTOCOL. PT ON 5.5L O2, HIGHFLOW NC. PICC TO LEFT UPPER ARM, NS INFUSING @ 75ML/HR. LUMENS WILL NOT DRAW, VERY DIFFICULT TO FLUSH. PT DENIES ANYTHING FURTHER AT THIS TIME. CALL LIGHT IN REACH. WILL CONTINUE TO MONITOR.
[2019-01-26 07:59] VITALS: BP 152/89
[2019-01-26 08:41] LABS: BASOPHILS 0 % (0-2); EOSINOPHILS 0 % (0-7); HEMATOCRIT 26.9 % (36.0-48.0); HEMOGLOBIN 8.4 g/dL (12-16); IMMATURE GRANULOCYTES 0.7 % (0-5); LYMPHOCYTES 3.6 % (15-50); MCH 26.9 pg (26.0-34.0); MCHC 31.2 g/dL (31.0-37.0); MCV 86.2 fL (80.0-100.0); MEAN PLATELET VOLUME 9.5 fL (7.4-10.4); MONOCYTES 3.3 % (2-11); NEUTROPHILS 92.4 % (40-80); PLATELET COUNT 309 10x3/uL (130-400); RBC 3.12 10x6/uL (4.00-5.40); RDW 14.2 % (11.5-14.5); WBC 10.3 10x3/uL (4.8-10.8)
--- NOTE | 2019-01-26 08:52 | MORECARE ---
CASE MANAGEMENT DISCHARGE SUMMARY PATIENT: KATIE BAI ANN UNIT: [id number] ADM DATE: 01/11/19 AGE: 63 : 59 SEX: F ROOM/BED: D.1205 AUTHOR: ELIA SANTANA PHYSICIAN: REFERRING PHYSICIAN: ROXANE MACKENZIE MD DATE OF SERVICE: 01/26/19 Discharge Plan Patient Name: KATIE BAI Facility: [facility]:[place] : 1955 Planned Disposition: Anticipated Discharge Date: Discharge Date: Expected LOS: Initial Reviewer: [id number] Initial Review Date: 01/15/2019 Generated: 01/26/19 9:52 am Comments DCP- Discharge Planning Updated by [email or web address]: Sagrario Gupta on 01/26/19 7:[address] Patient Name: KATIE BAI Admission Status: Elective Accout number: [id number] Admission Date: 01-11-2019 : 1955 Admission Diagnosis:OTHER OSTEOMYELITIS, LOWER LEG Attending: ROXANE MACKENZIE Current LOS: 15 Anticipated DC Date: Planned Disposition: Primary Insurance: [employer] MED[employer]ARE ADV Discharge Planning Comments: CM SPOKE WITH [facility] THIS MORNING, PATIENT HAS BEEN ACCEPTED. CM WILL CALL [facility] WHEN DC'D AND THEY WILL ARRANGE TRANSPORT. CM TO FOLLOW AND ASSIST. Assistant Professor Of Spanish: Sagrario Gupta DCP- Discharge Planning Updated by [id number]: Sagrario Gupta on 01/22/19 1:[address] Patient Name: KATIE BAI Admission Status: Elective Accout number: [id number] Admission Date: 01-11-2019 : 1955 Admission Diagnosis:OTHER OSTEOMYELITIS, LOWER LEG Attending: ROXANE MACKENZIE Current LOS: 11 Anticipated DC Date: Planned Disposition: Primary Insurance: [employer] MEDICARE ADV Discharge Planning Comments: RUSTY KEVIN RECEIVED AND FAXED TO [facility]. NURSING FACILITY STATES NOW STILL WAITING ON AUTH FROM INSURANCE [employer]. CM TO FOLLOW AND ASSIST. Assistant Professor Of Spanish: Sagrario Gupta DCP- Discharge Planning Updated by [id number]: Sagrario Gupta on 01/20/19 8:[address] Patient Name: KAITE BAI Admission Status: Elective Accout number: [id number] Admission Date: 01-11-2019 : 1955 Admission Diagnosis:OTHER OSTEOMYELITIS, LOWER LEG Attending: ROXANE MACKENZIE Current LOS: 9 Anticipated DC Date: Planned Disposition: Primary Insurance: WE[employer] MEDICARE ADV Discharge Planning Comments: INPT REHAB WAS DENIED BY INSURANCE. CM WILL SEND OVER REFERRAL TO [facility] FOR SNF. CM WILL FOLLOW AND ASSIST NEEDED WITH DC PLANNING/NEEDS. Assistant Professor Of Spanish: Sagrario Gupta Appended by Sagrario Gupta on 01/20/2019 9:25 BOILERMAKER WELDER: CM SPOKE WITH INGE AT [facility] AND WE WILL BE WAITING FOR CALL BACK ON AUTH. DCP- Discharge Planning Updated by [id number]: Sagrario Gupta on 01/18/19 4:[address] Patient Name: KATIE BAI Admission Status: Elective Accout number: [id number] Admission Date: 01-11-2019 : 1955 Admission Diagnosis:OTHER OSTEOMYELITIS, LOWER LEG Attending: ROXANE MACKENZIE Current LOS: 7 Anticipated DC Date: Planned Disposition: Primary Insurance: WE[employer] MEDICARE ADV Discharge Planning Comments: CM SPOKE WITH [facility] IN INPT REHAB AND ORDERED CONSULT. [facility] WILL SEE TODAY. PATIENT STATES IF INS DOESN'T AUTH INPT REHAB THEN SHE WANTS TO GO TO [facility]. CM WILL FOLLOW AND ASSIST NEEDED. Assistant Professor Of Spanish: Sagrario Gupta DCP- Discharge Planning Updated by [id number]: Sagrario Gupta on 01/16/19 3:[address] Patient Name: KATIE BAI Admission Status: Elective Accout number: [id number] Admission Date: 01-11-2019 : 1955 Admission Diagnosis:OTHER OSTEOMYELITIS, LOWER LEG Attending: ROXANE MACKENZIE Current LOS: 5 Anticipated DC Date: Planned Disposition: Primary Insurance: WE[employer] MEDICARE ADV Discharge Planning Comments: CM MET WITH PATIENT AGAIN ABOUT DC PLANNING/NEEDS. PATIENT WILL NEED INPATIENT REHAB OR SNF. CM LEFT MS FOR [facility] ABOUT OT AND REHAB CONSULTS. ALSO PATIENT'S RESPIRATIONS ARE LABORED AND SHE IS ON 4L 02 NC. DOESN'T HAVE O2 OR NEB AT HOME. WILL PROBABLY NEED AT TIME OF DC. STATES HASN'T SEEN A GUIDE TRAVEL, MAY NEED PULM CONSULT. CM WILL FOLLOW AND ASSIST NEEDED WITH DC PLANNING/NEEDS. Assistant Professor Of Spanish: Sagrario Gupta DCP- Discharge Planning Updated by [id number]: Sagrario Candy on 01/15/19 1:[address] Patient Name: KATIE BAI Admission Status: Elective Accout number: [id number] Admission Date: 01-11-2019 : 1955 Admission Diagnosis:OTHER OSTEOMYELITIS, LOWER LEG Attending: ROXANE MACKENZIE Current LOS: 4 Anticipated DC Date: Planned Disposition: Primary Insurance[facility] Discharge Planning Comments: CM MET WITH PATIENT ABOUT DC PLANNING/NEEDS. STATES SHE LIVES AT [facility] IN ASSISTED LIVING. HAS EXTERNAL FIXATER ON LEFT FOOT. PATIENT SIGNED PATIENT CHOICE FORM IN CASE SHE NEEDS EXTRA SERVICES WHEN DISCHARGED. SHE [facility]OSE [facility] FOR [facility]ION, AND [facility] FOR 02 OR NEBULIZER NEEDS. IM SERVED. CM WILL FOLLOW AND ASSIST NEEDED WITH DC PLANNING/NEEDS. Assistant Professor Of Spanish: Sagrario Gupta DCPIA - Discharge Planning Initial Assessment Updated by [id number]: Sagrario Candy on 01/15/19 2:14 pm * Is the patient Alert and Oriented? Yes * PCP DARLENE * Pharmacy [facility] * Preadmission Environment Assisted Living * Facility Name [facility] * ADLs Independent * Equipment Crutch Walker Wheelchair * List name and contact numbers for known caregivers / representatives who currently or will assist patient after discharge: [place] [phone] * Community resources currently utilized Assisted Living * Please name any agencies selected above. [facility] * Can the patient safely return to the preadmission environment? Yes * Has this patient been hospitalized within the prior 30 days at any hospital? No Coverage Notice Reviewer: [id number] Gupta Notice Issued Date-Time: 01/15/2019 14:23 Notice Type: IM Discharge Notice Notice Delivered To: Patient Relationship to Patient: Self Surgical Elastic Knitter Hand Frame Name: Delivery Method: HAND - Hand Delivered Stacey Days: Prior Verbal Notification: Recipient Understood Notice: Yes Recipient Signature: Yes Med Rec Note Co-signed by Attending: Coverage Notice Comment: Reviewer: [id number] Gupta Notice Issued Date-Time: 01/15/2019 14:23 Notice Type: Patient Choice Letter Notice Delivered To: Patient Relationship to Patient: Self Surgical Elastic Knitter Hand Frame Name: Delivery Method: HAND - Hand Delivered Stacey Days: Prior Verbal Notification: Recipient Understood Notice: Yes Recipient Signature: Yes Med Rec Note Co-signed by Attending: Coverage Notice Comment: [facility] FOR IV INFUSION [facility] IF NEEDS O2 Reviewer: [id number] Tahmina Gupta Notice Issued Date-Time: 01/16/2019 16:09 Notice Type: Patient Choice Letter Notice Delivered To: Patient Relationship to Patient: Self Surgical Elastic Knitter Hand Frame Name: Delivery Method: HAND - Hand Delivered Stacey Days: Prior Verbal Notification: Recipient Understood Notice: Yes Recipient Signature: Yes Med Rec Note Co-signed by Attending: Coverage Notice Comment: [facility] NEEDS SNF Last DP export: 01/22/19 1:52 pm Patient Name: KATIE BAI Page [phone] at 0852 All edits/amendments must be made on the electronic document DICTATION DATE: 01/26/1949 COOK ROOM SUPERVISOR: THADDEUS 01/26/19 0851 RPT#: [id number] DC DATE: STATUS: ADM IN [facility] [address] [place] [address] END OF REPORT
[2019-01-26 09:00] LABS: ANION GAP 15.7 mmol/L (8-16); CALCIUM 8.3 mg/dL (8.5-10.1); CARBON DIOXIDE 28.9 mmol/L (21.0-32.0); CREATININE - SERUM 2.8 mg/dL (0.6-1.3); POTASSIUM - SERUM 3.6 mmol/L (3.5-5.1); VANCOMYCIN - RANDOM 18.7 ug/mL (10.0-20.0)
[2019-01-26 11:50] VITALS: BP 147/82
[2019-01-26 14:22] VITALS: Ht 165.1 cm; Wt 90.7 kg
[2019-01-26 16:18] LABS: APPEARANCE CLEAR (CLEAR); BILIRUBIN NEGATIVE (NEGATIVE); COLOR YELLOW (YELLOW); GLUCOSE NEGATIVE (NEGATIVE); KETONE NEGATIVE (NEGATIVE); NITRITE NEGATIVE (NEGATIVE); PROTEIN NEGATIVE (NEGATIVE); SPECIFIC GRAVITY 1.015 (1.005-1.020); UROBILINOGEN NORMAL (NORMAL)
[2019-01-26 16:21] LABS: CREATININE - URINE 28.2 mg/dL (30-125)
[2019-01-26 16:28] LABS: PROTEIN - URINE 4.7 mg/dL (0.0-11.9)
[2019-01-26 16:54] VITALS: BP 152/78
--- NOTE | 2019-01-26 18:50 | NUR ---
PT RESTING IN BED, EYES OPEN. DAUGHTER AT BEDSIDE. C/O PAIN, GAVE NORCO FOR PAIN. NO S/S OF ACUTE DISTRESS NOTED. CALL LIGHT IN REACH. WILL CONTINUE TO MONITOR. PT DENIES ANYTHING FURTHER AT THIS TIME.
--- NOTE | 2019-01-26 19:34 | NUR ---
PATIENT RESTING IN BED WITH GUEST AT BEDSIDE, DENIES NEEDS AT THIS TIME. BED IN LOWEST POSITION AND CALL LIGHT WITHIN REACH. ENCOURAGED THE PATIENT TO CALL IF SHE HAS NEEDS. WILL CONTINUE TO MONITOR.
[2019-01-26 20:00] VITALS: BP 150/77
--- NOTE | 2019-01-26 21:18 | NUR ---
OT NOTE: PT COMPLETED HYGIENE AND GROOMING TASKS WITH SET UP. PT COMPLETED UE AROM EXS. THANK YOU, RAVINDER CISSE
[2019-01-27] VITALS: BP 148/76
[2019-01-27 04:00] VITALS: BP 136/91
[2019-01-27 09:27] VITALS: BP 150/69
[2019-01-27 10:00] LABS: % SATURATION 13 % (15-55); IRON 32 ug/dl (35-150); TOTAL IRON BIND CAPACITY 242 ug/dl (260-445); UNSAT IRON BIND CAPACITY 210 ug/dl (150-375)
[2019-01-27 10:16] LABS: ANION GAP 10.4 mmol/L (8-16); CALCIUM 7.8 mg/dL (8.5-10.1); CREATININE - SERUM 2.7 mg/dL (0.6-1.3); POTASSIUM - SERUM 3.4 mmol/L (3.5-5.1); VANCOMYCIN - RANDOM 14.7 ug/mL (10.0-20.0)
[2019-01-27 10:31] LABS: BASOPHILS 0 % (0-2); EOSINOPHILS 0 % (0-7); HEMATOCRIT 25.8 % (36.0-48.0); HEMOGLOBIN 7.9 g/dL (12-16); IMMATURE GRANULOCYTES 0.7 % (0-5); LYMPHOCYTES 4.5 % (15-50); MCH 26.6 pg (26.0-34.0); MCHC 30.6 g/dL (31.0-37.0); MCV 86.9 fL (80.0-100.0); MEAN PLATELET VOLUME 10.1 fL (7.4-10.4); MONOCYTES 4.5 % (2-11); NEUTROPHILS 90.3 % (40-80); PLATELET COUNT 310 10x3/uL (130-400); RBC 2.97 10x6/uL (4.00-5.40); RDW 14.2 % (11.5-14.5); WBC 8.3 10x3/uL (4.8-10.8)
--- NOTE | 2019-01-27 10:54 | NUR ---
Pt is on a mechanical soft diet with 80% average po intake past 3 days Santiago is ordered however pt reports she did not drink it as she thought it was chocolate. Santiago is not chocolate and pt agreed she will start supplement Pt reports no nutritional request or concerns and reports tolerating diet well Encouraged good po intake RD following per protocol
--- NOTE | 2019-01-27 11:01 | MORECARE ---
CASE MANAGEMENT DISCHARGE SUMMARY PATIENT: KATIE BAI ANN UNIT: [id number] ADM DATE: 01/11/19 AGE: 63 : 59 SEX: F ROOM/BED: D.1205 AUTHOR: ELIA SANTANA PHYSICIAN: REFERRING PHYSICIAN: ROXANE MACKENZIE MD DATE OF SERVICE: 01/27/19 Discharge Plan Patient Name: KATIE BAI Facility: [facility]:[place] : 1955 Planned Disposition: Anticipated Discharge Date: Discharge Date: Expected LOS: Initial Reviewer: [id number] Initial Review Date: 01/15/2019 Generated: 01/27/19 12:01 pm Comments DCP- Discharge Planning Updated by [id number]: Sagrario Gupta on 01/26/19 7:[address] Patient Name: KATIE BAI Admission Status: Elective Accout number: [id number] Admission Date: 01-11-2019 : 1955 Admission Diagnosis:OTHER OSTEOMYELITIS, LOWER LEG Attending: ROXANE MACKENZIE Current LOS: 15 Anticipated DC Date: Planned Disposition: Primary Insurance: [employer] MEDICARE ADV Discharge Planning Comments: CM SPOKE WITH [facility] THIS MORNING, PATIENT HAS BEEN ACCEPTED. CM WILL CALL [facility] WHEN DC'D AND THEY WILL ARRANGE TRANSPORT. CM TO FOLLOW AND ASSIST. Signals Intelligence Superintendent: Sagrario Gupta DCP- Discharge Planning Updated by [id number]: Sagrario Gupta on 01/22/19 1:[address] Patient Name: KATIE BAI Admission Status: Elective Accout number: [id number] Admission Date: 01-11-2019 : 1955 Admission Diagnosis:OTHER OSTEOMYELITIS, LOWER LEG Attending: ROXANE MACKENZIE Current LOS: 11 Anticipated DC Date: Planned Disposition: Primary Insurance: [employer] MEDICARE ADV Discharge Planning Comments: RUSTY KEVIN RECEIVED AND FAXED TO [facility]. NURSING FACILITY STATES NOW STILL WAITING ON AUTH FROM INSURANCE [employer]. CM TO FOLLOW AND ASSIST. Signals Intelligence Superintendent: Sagrario Gupta DCP- Discharge Planning Updated by [id number]: Sagrario Gupta on 01/20/19 8:[address] Patient Name: KATIE BAI Admission Status: Elective Accout number: [id number] Admission Date: 01-11-2019 : 1955 Admission Diagnosis:OTHER OSTEOMYELITIS, LOWER LEG Attending: ROXANE MACKENZIE Current LOS: 9 Anticipated DC Date: Planned Disposition: Primary Insurance: WE[employer] MEDICARE ADV Discharge Planning Comments: INPT REHAB WAS DENIED BY INSURANCE. CM WILL SEND OVER REFERRAL TO [facility] FOR SNF. CM WILL FOLLOW AND ASSIST NEEDED WITH DC PLANNING/NEEDS. Signals Intelligence Superintendent: Sagrario Gupta Appended by Sagrario Gupta on 01/20/2019 9:25 VIDEO NEWS EDITOR: CM SPOKE WITH INGE AT [facility] AND WE WILL BE WAITING FOR CALL BACK ON AUTH. DCP- Discharge Planning Updated by [id number]: Sagrario Gupta on 01/18/19 4:[address] Patient Name: KATIE BAI Admission Status: Elective Accout number: [id number] Admission Date: 01-11-2019 : 1955 Admission Diagnosis:OTHER OSTEOMYELITIS, LOWER LEG Attending: ROXANE MACKENZIE Current LOS: 7 Anticipated DC Date: Planned Disposition: Primary Insurance: [employer] MEDICARE ADV Discharge Planning Comments: CM SPOKE WITH [facility] IN INPT REHAB AND ORDERED CONSULT. [facility] WILL SEE TODAY. PATIENT STATES IF INS DOESN'T AUTH INPT REHAB THEN SHE WANTS TO GO TO [facility]. CM WILL FOLLOW AND ASSIST NEEDED. Signals Intelligence Superintendent: Sagrario Gupta DCP- Discharge Planning Updated by [id number]: Sagrario Gupta on 01/16/19 3:[address] Patient Name: KATIE BAI Admission Status: Elective Accout number: [id number] Admission Date: 01-11-2019 : 1955 Admission Diagnosis:OTHER OSTEOMYELITIS, LOWER LEG Attending: ROXANE MACKENZIE Current LOS: 5 Anticipated DC Date: Planned Disposition: Primary Insurance: [employer] MEDICARE ADV Discharge Planning Comments: CM MET WITH PATIENT AGAIN ABOUT DC PLANNING/NEEDS. PATIENT WILL NEED INPATIENT REHAB OR SNF. CM LEFT MS FOR [facility] ABOUT OT AND REHAB CONSULTS. ALSO PATIENT'S RESPIRATIONS ARE LABORED AND SHE IS ON 4L 02 NC. DOESN'T HAVE O2 OR NEB AT HOME. WILL PROBABLY NEED AT TIME OF DC. STATES HASN'T SEEN A SLOT TAG INSERTER, MAY NEED PULM CONSULT. CM WILL FOLLOW AND ASSIST NEEDED WITH DC PLANNING/NEEDS. Signals Intelligence Superintendent: Sagrario Gupta DCP- Discharge Planning Updated by [id number]: Sagrario Candy on 01/15/19 1:[address] Patient Name: KATIE BAI Admission Status: Elective Accout number: [id number] Admission Date: 01-11-2019 : 1955 Admission Diagnosis:OTHER OSTEOMYELITIS, LOWER LEG Attending: ROXANE MACKENZIE Current LOS: 4 Anticipated DC Date: Planned Disposition: Primary [facility] Discharge Planning Comments: CM MET WITH PATIENT ABOUT DC PLANNING/NEEDS. STATES SHE LIVES AT [facility] IN [facility]ED LIVING. HAS EXTERNAL FIXATER ON LEFT FOOT. PATIENT SIGNED PATIENT CHOICE FORM IN CASE SHE NEEDS EXTRA SERVICES WHEN DISCHARGED. SHE [facility]OSE [facility] FOR [facility], AND [facility] FOR 02 OR NEBULIZER NEEDS. IM SERVED. CM WILL FOLLOW AND ASSIST NEEDED WITH DC PLANNING/NEEDS. Signals Intelligence Superintendent: Sagrario Gupta DCPIA - Discharge Planning Initial Assessment Updated by [id number]: Sagrario Candy on 01/15/19 2:14 pm * Is the patient Alert and Oriented? Yes * PCP DARLENE * Pharmacy [facility] * Preadmission Environment Assisted Living * Facility Name [facility] * ADLs Independent * Equipment Crutch Walker Wheelchair * List name and contact numbers for known caregivers / representatives who currently or will assist patient after discharge: [place] [phone] * Community resources currently utilized Assisted Living * Please name any agencies selected above. [facility] * Can the patient safely return to the preadmission environment? Yes * Has this patient been hospitalized within the prior 30 days at any hospital? No Coverage Notice Reviewer: [id number] Gupta Notice Issued Date-Time: 01/15/2019 14:23 Notice Type: IM Discharge Notice Notice Delivered To: Patient Relationship to Patient: Self Greenhouse Technician Name: Delivery Method: HAND - Hand Delivered Stacey Days: Prior Verbal Notification: Recipient Understood Notice: Yes Recipient Signature: Yes Med Rec Note Co-signed by Attending: Coverage Notice Comment: Reviewer: [id number] Gupta Notice Issued Date-Time: 01/15/2019 14:23 Notice Type: Patient Choice Letter Notice Delivered To: Patient Relationship to Patient: Self Greenhouse Technician Name: Delivery Method: HAND - Hand Delivered Stacey Days: Prior Verbal Notification: Recipient Understood Notice: Yes Recipient Signature: Yes Med Rec Note Co-signed by Attending: Coverage Notice Comment: [facility] FOR IV INFUSION [facility] OR [facility] IF NEEDS O2 Reviewer: [id number] Tahmina Gupta Notice Issued Date-Time: 01/16/2019 16:09 Notice Type: Patient Choice Letter Notice Delivered To: Patient Relationship to Patient: Self Greenhouse Technician Name: Delivery Method: HAND - Hand Delivered Stacey Days: Prior Verbal Notification: Recipient Understood Notice: Yes Recipient Signature: Yes Med Rec Note Co-signed by Attending: Coverage Notice Comment: [facility] Last DP export: 01/26/19 7:52 am Patient Name: KATIE BAI Page 99018 at 1101 All edits/amendments must be made on the electronic document DICTATION DATE: 01/27/19 1100 PAPERHANGER SUPERVISOR: THADDEUS 01/27/19 1100 RPT#: [id number] DC DATE: STATUS: ADM IN [facility] [address] [place] [address] END OF REPORT
--- NOTE | 2019-01-27 11:37 | NUR ---
IVPB VANCOMYCIN HUNG AT THIS TIME. PT ASKING FOR PAIN MEDICATION, INFOMRED HER THAT IT WILL BE 1240 BEFORE SHE CAN HAVE ANYTHIGN. PT VERBALIZED UNDERSTANDING. NAD NOTED, CALL LIGHT IN REACH.
[2019-01-27 12:03] VITALS: BP 157/91
--- NOTE | 2019-01-27 17:23 | NUR ---
NORCO GIVEN FOR PAIN LEVEL OF 8/10. IVPB IRON HUNG AT THIS TIME. PT DENIES ANY NEEDS AT THIS TIME. CALL LIGHT IN REACH, NAD NOTED.
[2019-01-27 17:43] VITALS: BP 127/71
--- NOTE | 2019-01-27 19:50 | NUR ---
RESUMING PT CARE. PT IS ALERT LAYING IN BED WATCHING TV WITH NO C/O VOICED AT THIS TIME. NO S/S OF ACUTE DISTRESS. PT IS ON 5 LITERS OF O2. PT HAS A LT PIC LINE THAT IS SALINE LOCK. BED IN LOW POSITION WITH CALL LIGHT IN REACH. WILL CONTINUE TO MONITOR PT AND FOLLOW PLAN OF CARE.
[2019-01-27 20:46] VITALS: BP 159/76
[2019-01-28] VITALS (8 sets, daily range): BP systolic 109–165; BP diastolic 55–95
--- NOTE | 2019-01-28 03:15 | NUR ---
I AGREE WITH BREWERY TECHNICIAN ASSESSMENT THIS SHIFT.
[2019-01-28 05:02] LABS: BASOPHILS 0 % (0-2); EOSINOPHILS 0 % (0-7); HEMATOCRIT 25.9 % (36.0-48.0); HEMOGLOBIN 8.1 g/dL (12-16); IMMATURE GRANULOCYTES 1.3 % (0-5); LYMPHOCYTES 5.1 % (15-50); MCHC 31.3 g/dL (31.0-37.0); MCV 86.3 fL (80.0-100.0); MEAN PLATELET VOLUME 9.7 fL (7.4-10.4); NEUTROPHILS 84.6 % (40-80); PLATELET COUNT 293 10x3/uL (130-400); RDW 14.1 % (11.5-14.5); WBC 8.2 10x3/uL (4.8-10.8)
[2019-01-28 05:31] LABS: ANION GAP 11.2 mmol/L (8-16); CALCIUM 7.9 mg/dL (8.5-10.1); CREATININE - SERUM 2.8 mg/dL (0.6-1.3); POTASSIUM - SERUM 3.2 mmol/L (3.5-5.1); VANCOMYCIN - RANDOM 18.6 ug/mL (10.0-20.0)
--- NOTE | 2019-01-28 06:13 | NUR ---
PT LAYING IN BED RESTING COMFORTABLY WITH EYES CLOSED. NO S/S OF DISTRESS BED IN LOW POSITION WITH CALL LIGHT IN REACH. WILL CONTINUE TO MONITOR PT AND FOLLOW PLAN OF CARE.
--- NOTE | 2019-01-28 07:00 | NUR ---
INITIAL ROUNDING ON THE PATIENT, SHE IS AWAKE AND RESTING IN BED WITH HOB AT 45 DEGREES. O2 VIA NC IN PLACE WITH OXYGEN SET AT 6 LPM HELDER FLOW, TURNED DOWN TO 5 LPM WITH O2 SAT AT 98 %. CALL LIGHT IN REACH.
--- NOTE | 2019-01-28 09:30 | NUR ---
ROUNDING ON THE PATIENT, O2 SAT AT 96%, TURNED OXYGEN DOWN TO 4 LPM AT THIS TIME
--- NOTE | 2019-01-28 15:55 | NUR ---
OT NOTE: PT COMPLETED SUPINE TO SIT WITH SBA. PT COMPLETED EOB SITTING BALANCE WITH SPV. PT COMPLETED BUE AROM EXS AT EOB. THANK YOU, RAVINDER CISSE
--- NOTE | 2019-01-28 20:50 | NUR ---
RESUMING PT CARE. PT IS ALERT LAYING IN BED WITH NO C/O VOICED AT THIS TIME. NO S/S OF ACUTE DISTRESS. PT HAS IV PICC LINE IN LEFT UPPER ARM. PT IS ON 4 LITERS OF O2. BED IN LOW POSITION WITH CALL LIGHT IN REACH. SIDE RAILS UP X 2. WILL CONTINUE TO MONITOR PT AND FOLLOW PLAN OF CARE.
--- NOTE | 2019-01-29 00:10 | NUR ---
THE PATIENT APPEARS TO BE SLEEPING. BED IS IN THE LO WPOSITION WITH SIDERAILS X2 AND CALL LIGHT WITHIN REACH.
[2019-01-29 04:30] VITALS: BP 163/96
--- NOTE | 2019-01-29 05:55 | NUR ---
PT C/O OF LT LEG THROBBING. PT REQUEST PAIN MED. NORCO 10/325 ONE TABLET PO GIVEN PER JAN. BED IN LOW POSITION WITH CALL LIGHT IN REACH. SIDE RAILS UP X 2. WILL CONTINUE TO MONITOR PT AND FOLLOW PLAN OF CARE.
--- NOTE | 2019-01-29 07:22 | NUR ---
INITIAL ROUNDING, THE PATIENT IS AWAKE AND IN BED WITH HOB AT 45 DEGREES. SHE WAS GIVEN CREAMER FOR HER COFFEE AT THIS TIME. SHE IS REPORTING PAIN OF 7, STATES 'ITS OK, I JUST WENT TO THE BATHROOM'. CALL LIGHT IN REACH
[2019-01-29 07:39] VITALS: BP 158/88
[2019-01-29 09:05] LABS: ANION GAP 10.8 mmol/L (8-16); BASOPHILS 0 % (0-2); CALCIUM 8.1 mg/dL (8.5-10.1); CARBON DIOXIDE 32.7 mmol/L (21.0-32.0); CREATININE - SERUM 2.9 mg/dL (0.6-1.3); EOSINOPHILS 0 % (0-7); HEMATOCRIT 27.1 % (36.0-48.0); HEMOGLOBIN 8.4 g/dL (12-16); IMMATURE GRANULOCYTES 1.1 % (0-5); LYMPHOCYTES 3.5 % (15-50); MCH 26.5 pg (26.0-34.0); MCV 85.5 fL (80.0-100.0); MEAN PLATELET VOLUME 9.8 fL (7.4-10.4); NEUTROPHILS 89.4 % (40-80); PLATELET COUNT 338 10x3/uL (130-400); POTASSIUM - SERUM 3.5 mmol/L (3.5-5.1); RBC 3.17 10x6/uL (4.00-5.40); RDW 14.1 % (11.5-14.5); VANCOMYCIN - RANDOM 23.4 ug/mL (10.0-20.0); WBC 11.9 10x3/uL (4.8-10.8)
[2019-01-29 11:22] VITALS: BP 141/76
--- NOTE | 2019-01-29 13:01 | NUR ---
Nutrition follow-up: Diet: Regular mechanical soft PO intkae 100% most meals; Santiago ordered Labs reviewed +BM PO intake remains good; d/c soon to rehab unit RDN following.
[2019-01-29 15:21] VITALS: BP 153/81
--- NOTE | 2019-01-29 19:15 | NUR ---
PT RESTING IN BED. DRSG CHANGED BY NURSE GELY PRIOR TO LEAVING FROM HER SHIFT. LEFT FOOT ELEVATED ON PILLOWS. PT COMPLAINS OF PAIN BUT NORCO GIVEN AT 1845 UNABLE TO GIVE MORE AT THIS TIME. PT HAS A LEFT UPPER ARM PICC, PT HAS SOB AND A SLIGHT COUGH DENIES ANY PRODUCTIVE SPUTUM. PT ON 2L HIGH FLOW NC S1S2 LUNGS CLEAR. PT STATES LAST BM TODAY. NO S/S OF DISTRESS. PT BEDLOW AND CALL LIGHT IN REACH. WILL CPOC
[2019-01-29 20:00] VITALS: BP 159/84
--- NOTE | 2019-01-29 23:46 | NUR ---
SPOKE WITH DR TORRES. STATED ATIVAN ORDER 0.5MG
--- NOTE | 2019-01-29 23:57 | NUR ---
PT COMPLAINS OF SEVERE SOB. PULSE OX IN THE 70-80'S GOT RESP AND SET PT ON SIDE OF BED. ATTEMPTED BREATHING TREATMENT PT IS TO RESTLESS. SPOKE TO BRIAN AND OBTAINED AN ORDER FOR ATIVAN. PT GIVEN ONLY 0.5 DUE TO RENAL FUNCTION. PT FLOW METER AND TUBING CHANGED. O2 NOW UP TO 90% PT SITTING ON SIDE OF BED STATES IS FEELING BETTER. PT HAS NO S/S OF DISTRESS. STILL DYSPNEA AND SOB. PT HAS CALL LIGHT AT BEDSIDE. WILL CPOC
--- NOTE | 2019-01-30 00:10 | NUR ---
PT NOW CALM AND RESP EVEN, PT ON 5L OXYMIZER. PT BEDLOW AND CALL LIGHT INREACH. PT WENT FROM SIDE OF BED TO LAYING IN BED. CLEANED PAD AND BUTTOCK DUE TO PT INCONT STOOL. PT HAS NO S/S OF DISTRESS. BEDLOW AND CALL LIGHT IN REACH. STATES SHE FEELS BETTER. WILL CPOC
[2019-01-30 01:30] VITALS: BP 165/96
--- NOTE | 2019-01-30 03:03 | NUR ---
PT ASLEEP. RESP EVEN AND UNLABORED. 5L OXYMIZER NO S/S OF DISTRESS. BEDLOW AND CALL LIGHT IN REACH. NS INFUSING KVO TO LEFT UPPER ARM PICC. WILL CPOC
[2019-01-30 04:30] VITALS: BP 164/98
--- NOTE | 2019-01-30 05:48 | NUR ---
MORNING MEDICATIONS GIVEN. NORCO GIVEN FOR PAIN. PT UP TO BED SIDE COMMODE WITH MINIMAL ASSIST. PT NON WEIGHT BEARING ON LEFT LEG. URINATED 1000ML OF YELLOW URINE. PT HAS DYSPNEA FROM TRANSFER. PT NOW BACK INTO BED. SOB, LINE DRAW FOR MORNING LABS THROUGH LEFT UPPER ARM PICC LINE. PT HAS NO S/S OF DISTRESS. 5L OXYMIZER. COUGHING BUT STATES IT IS JUST TO CLEAR HER THROAT. PT HAS MYOCLONIC MOVEMENTS WITH TONGUE. PT WILL CALL FOR ASSIST WHEN NEEDED. WILL CPOC
[2019-01-30 06:42] LABS: BASOPHILS 0 % (0-2); EOSINOPHILS 0 % (0-7); HEMATOCRIT 27.8 % (36.0-48.0); HEMOGLOBIN 8.7 g/dL (12-16); LYMPHOCYTES 2.8 % (15-50); MCH 26.8 pg (26.0-34.0); MCHC 31.3 g/dL (31.0-37.0); MCV 85.5 fL (80.0-100.0); MEAN PLATELET VOLUME 9.6 fL (7.4-10.4); MONOCYTES 3.3 % (2-11); NEUTROPHILS 92.9 % (40-80); PLATELET COUNT 328 10x3/uL (130-400); RBC 3.25 10x6/uL (4.00-5.40); RDW 14.3 % (11.5-14.5)
[2019-01-30 06:45] LABS: WBC 17.8 10x3/uL (4.8-10.8)
[2019-01-30 07:08] LABS: ANION GAP 12.1 mmol/L (8-16); CALCIUM 8.1 mg/dL (8.5-10.1); CARBON DIOXIDE 32.5 mmol/L (21.0-32.0); CREATININE - SERUM 2.6 mg/dL (0.6-1.3); POTASSIUM - SERUM 3.6 mmol/L (3.5-5.1)
[2019-01-30 07:24] VITALS: BP 167/99
--- NOTE | 2019-01-30 08:44 | NUR ---
RESTING QUIETLY IN BED. DENIES ANY NEEDS AT THIS TIME.
[2019-01-30 11:42] VITALS: BP 161/91
[2019-01-30 15:20] VITALS: BP 167/88
[2019-01-30 20:00] VITALS: BP 173/82
--- NOTE | 2019-01-30 20:37 | NUR ---
PATIENT RESTING IN BED WITH NO S/S OF DISTRESS. ADMINISTERED MEDS PER ORDERS. PATIENT DENIES OTHER NEEDS AT THIS TIME. BED IN LOWEST POSITION AND CALL LIGHT WITHIN REACH. ENCOURAGED THE PATIENT TO CALL IF SHE HAS NEEDS. WILL CONTINUE TO MONITOR. PATIENT REQUESTED PAIN MEDICATION FOR 8/10 PAIN. ADMINISTERED
[2019-01-31 00:52] VITALS: BP 178/96
[2019-01-31 04:06] LABS: APPEARANCE CLEAR (CLEAR); BILIRUBIN NEGATIVE (NEGATIVE); COLOR YELLOW (YELLOW); GLUCOSE 50 mg/dL (NEGATIVE); KETONE NEGATIVE (NEGATIVE); NITRITE NEGATIVE (NEGATIVE); PROTEIN NEGATIVE (NEGATIVE); UROBILINOGEN NORMAL (NORMAL)
[2019-01-31 05:00] VITALS: BP 163/101
--- NOTE | 2019-01-31 07:20 | NUR ---
PATIENT ADMITTED FOR LEFT ANKLE INFECTION AND PNEUMONIA. EXTERNAL FIXATOR TO LEFT ANKLE WITH DRESSINGS C/D/I. 02 3L NC WITH DYSPNEA NOTED WITH MINAMAL EXERTION. ASSISTED TO BSC, WITH CALMOSEPTINE APPLIED TO BUTTOCKS DUE TO EXCOREATION. ASSISTED BACK TO BED WITH CALL LIGHT IN REACH
[2019-01-31 07:52] LABS: ANION GAP 11.5 mmol/L (8-16); CARBON DIOXIDE 31.9 mmol/L (21.0-32.0); CREATININE - SERUM 2.1 mg/dL (0.6-1.3); POTASSIUM - SERUM 3.4 mmol/L (3.5-5.1); VANCOMYCIN - RANDOM 18.7 ug/mL (10.0-20.0)
[2019-01-31 08:00] VITALS: BP 163/86
[2019-01-31 08:19] LABS: BASOPHILS 0.1 % (0-2); EOSINOPHILS 0.4 % (0-7); HEMATOCRIT 27.8 % (36.0-48.0); HEMOGLOBIN 8.6 g/dL (12-16); IMMATURE GRANULOCYTES 1.2 % (0-5); LYMPHOCYTES 8.1 % (15-50); MCHC 30.9 g/dL (31.0-37.0); MCV 87.1 fL (80.0-100.0); MONOCYTES 9.2 % (2-11); PLATELET COUNT 313 10x3/uL (130-400); RBC 3.19 10x6/uL (4.00-5.40); RDW 14.9 % (11.5-14.5); WBC 16.2 10x3/uL (4.8-10.8)
[2019-01-31 18:49] VITALS: BP 175/83
[2019-01-31 20:01] VITALS: BP 111/86
--- NOTE | 2019-01-31 21:02 | NUR ---
PATIENT RESTING IN BED AND REQUESTED A PAIN PILL. ADMINISTERED MEDS PER ORDERS. PATIENT DENIES OTHER NEEDS AT THIS TIME. BED IN LOWEST POSITION AND CALL LIGHT WITHIN REACH. ENCOURAGED THE PATIENT TO CALL IF SHE HAS NEEDS. WILL CONTINUE TO MONITOR.
[2019-02-01 00:59] VITALS: BP 161/90
[2019-02-01 04:00] VITALS: BP 172/97
--- NOTE | 2019-02-01 07:45 | NUR ---
AM ROUNDS COMPLETED. INTRODUCED MYSELF TO PT PRIMARY RN FOR TODAYS SHIFT. PT IS A&O SITTING UP IN BED RESTING QUIETLY. RR NONLABORED. SHIFT ASSESSMENT COMPLETED. PT IS CURRENTLY ON 13L NC HOWEVER PULSE OX IS 100% PT STATES SHE ONLY FEELS SOB UPON EXERTION. WILL TAPER PT DOWN IM ABLE TO AND LONG SHE IS BREATHING ALRIGHT. PT VOICED THANKS AND DENIES ANY CURRENT NEEDS. WILL CTM.
[2019-02-01 07:54] VITALS: BP 165/91
[2019-02-01 08:02] LABS: BASOPHILS 0 % (0-2); EOSINOPHILS 5.3 % (0-7); HEMATOCRIT 28.2 % (36.0-48.0); HEMOGLOBIN 8.5 g/dL (12-16); IMMATURE GRANULOCYTES 0.6 % (0-5); LYMPHOCYTES 10.2 % (15-50); MCH 27.2 pg (26.0-34.0); MCHC 30.1 g/dL (31.0-37.0); MEAN PLATELET VOLUME 9.8 fL (7.4-10.4); MONOCYTES 8.7 % (2-11); NEUTROPHILS 75.2 % (40-80); PLATELET COUNT 273 10x3/uL (130-400); RBC 3.13 10x6/uL (4.00-5.40); RDW 15.5 % (11.5-14.5)
[2019-02-01 08:06] LABS: C-REACTIVE PROTEIN 8.4 mg/dL (0.0-0.9); CALCIUM 8.3 mg/dL (8.5-10.1); CARBON DIOXIDE 37.1 mmol/L (21.0-32.0); CREATININE - SERUM 1.9 mg/dL (0.6-1.3); VANCOMYCIN - RANDOM 21.3 ug/mL (10.0-20.0); VANCOMYCIN - TROUGH 21.3 ug/mL (10.0-20.0)
[2019-02-01 08:07] LABS: POTASSIUM - SERUM 4.1 mmol/L (3.5-5.1)
[2019-02-01 08:13] LABS: MCV 90.1 fL (80.0-100.0); WBC 10.3 10x3/uL (4.8-10.8)
--- NOTE | 2019-02-01 09:00 | NUR ---
NC @10L AND PTS O2 SAT 100% PT STATES SHE IS BREATHING GREAT AND DENIES ANY ISSUES OR SOB. WILL TAPER PT DOWN TO 7L NC AND SEE HOW SHE DOES. CL IN REACH, BED IN LOWEST. WILL CTM.
[2019-02-01 09:19] LABS: ERYTHROCYTE SEDIMENTATION RATE 18 mm/hr (0-30)
--- NOTE | 2019-02-01 09:45 | NUR ---
PTS O2 SAT REMAINS UNAFFECTED BY THE TAPERING OF OXYGEN. WILL TAPER PT DOWN TO 5LNC PULSE OX IS 100% AND PT STATES SHE IS DOING FINE. ASSISTED PT TO BEDSIDE COMMODE SHE URINATED 1600ML OF CLEAR YELLOW URINE. ASSISTED PT BACK INTO BED. NO CURRENT NEEDS. WILL CTM.
--- NOTE | 2019-02-01 10:32 | NUR ---
PT CALLED REQUESTING PRN NORCO FOR PAIN. PROVIDED PT WITH IT AND SHE SWALLOWED WITHOUT ANY DIFFICULTIES. PTS O2 SAT REMAINING 100% WILL CONTINUE TO TAPER DOWN. PT NOW ON 3LNC AND DENIES ANY SOB OR LABORED BREATHING. WILL CONTINUE WITH TAPERING. PT IS HOPING TO BE DISCHARGED SOON. CL IN REACH, BED IN LOWEST, SIDE RAILS X2. WILL CTM.
[2019-02-01 11:17] VITALS: BP 160/89
--- NOTE | 2019-02-01 11:27 | NUR ---
PT UP OOB WITH THERAPY AND STATES SHE IS BREATHING GOOD AND FEELING GREAT. PULSE OX 100% TAPERED HER DOWN TO 2LNC WILL CTM.
--- NOTE | 2019-02-01 13:51 | MORECARE ---
CASE MANAGEMENT DISCHARGE SUMMARY PATIENT: KATIE BAI ANN UNIT: [id number] ADM DATE: 01/11/19 AGE: 63 : 59 SEX: F ROOM/BED: D.1205 AUTHOR: ELIA SANTANA PHYSICIAN: REFERRING PHYSICIAN: ROXANE MACKENZIE MD DATE OF SERVICE: 02/01/19 Discharge Plan Patient Name: KATIE BAI Facility: [facility]:[place] : 1955 Planned Disposition: Anticipated Discharge Date: Discharge Date: Expected LOS: Initial Reviewer: [id number] Initial Review Date: 01/15/2019 Generated: 02/01/19 2:51 pm Comments DCP- Discharge Planning Updated by [email or web address]: Paris Musa on 02/01/19 12:[address] CM received order for discharge. CM called and spoke with Debbi at [facility] about patient being cleared for DC. Debbi stated the insurance auth for SNF had . CM will need to fax clinical update, then SNF will submit info to insurance company for auth. CM faxed records as requested. Awaiting insurance auth. DCP- Discharge Planning Updated by [id number]: Sagrario Gupta on 01/27/19 9:[address] Patient Name: KATIE BAI Admission Status: Elective Accout number: [id number] Admission Date: 01-11-2019 : 1955 Admission Diagnosis:OTHER OSTEOMYELITIS, LOWER LEG Attending: ROXANE MACKENZIE Current LOS: 16 Anticipated DC Date: Planned Disposition: Primary Insurance: [employer] ADV Discharge Planning Comments: CM SPOKE WITH DR. FLEMING AND HE STATES WE NEED TO KEEP PATIENT SEVERAL MORE DAYS DUE TO CREATININE LEVEL. CM CALLED ED AT [facility] TO UPDATE HER. PATIENT CAN GO TO [facility] WHEN DISCHARGED. [facility] PHONE NUMBER [phone]. Cardiac Rehabilitation Specialist: Sagrario Gupta DCP- Discharge Planning Updated by [id number]: Sagrario Gupta on 01/26/19 6:[address] Patient Name: KATIE BAI Admission Status: Elective Accout number: [id number] Admission Date: 01-11-2019 : 1955 Admission Diagnosis:OTHER OSTEOMYELITIS, LOWER LEG Attending: ROXANE MACKENZIE Current LOS: 15 Anticipated DC Date: Planned Disposition: Primary Insurance: [employer] ADV Discharge Planning Comments: CM SPOKE WITH [facility] THIS MORNING, PATIENT HAS BEEN ACCEPTED. CM WILL CALL [facility] WHEN DC'D AND THEY WILL ARRANGE TRANSPORT. CM TO FOLLOW AND ASSIST. Cardiac Rehabilitation Specialist: Sagrario Gupta DCP- Discharge Planning Updated by [id number]: Sagrario Gupta on 01/22/19 12:[address] Patient Name: KATIE BAI Admission Status: Elective Accout number: [id number] Admission Date: 01-11-2019 : 1955 Admission Diagnosis:OTHER OSTEOMYELITIS, LOWER LEG Attending: ROXANE MACKENZIE Current LOS: 11 Anticipated DC Date: Planned Disposition: Primary Insurance: [employer]ARE ADV Discharge Planning Comments: RUSTY BROWN RECEIVED AND FAXED TO [facility]. NURSING FACILITY STATES NOW STILL WAITING ON AUTH FROM INSURANCE COMPANY. CM TO FOLLOW AND ASSIST. Cardiac Rehabilitation Specialist: Sagrario Gupta DCP- Discharge Planning Updated by [id number]: Sagrario Gupta on 01/20/19 7:[address] Patient Name: KATIE BAI Admission Status: Elective Accout number: [id number] Admission Date: 01-11-2019 : 1955 Admission Diagnosis:OTHER OSTEOMYELITIS, LOWER LEG Attending: ROXANE MACKENZIE Current LOS: 9 Anticipated DC Date: Planned Disposition: Primary Insurance: [employer] ADV Discharge Planning Comments: INPT REHAB WAS DENIED BY INSURANCE. CM WILL SEND OVER REFERRAL TO [facility] FOR SNF. CM WILL FOLLOW AND ASSIST NEEDED WITH DC PLANNING/NEEDS. 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 DCP- Discharge Planning Updated by [id number]: Sagrario Gupta on 01/18/19 3:[address] Patient Name: KATIE BAI Admission Status: Elective Accout number: [id number] Admission Date: 01-11-2019 : 1955 Admission Diagnosis:OTHER OSTEOMYELITIS, LOWER LEG Attending: ROXANE MACKENZIE Current LOS: 7 Anticipated DC Date: Planned Disposition: Primary Insurance: [employer]ARE ADV Discharge Planning Comments: CM SPOKE WITH [facility] IN INPT REHAB AND ORDERED CONSULT. [facility] WILL SEE TODAY. PATIENT STATES IF INS DOESN'T AUTH INPT REHAB THEN SHE WANTS TO GO TO [facility]. CM WILL FOLLOW AND ASSIST NEEDED. Cardiac Rehabilitation Specialist: Sagrario Candy DCP- Discharge Planning Updated by [id number]: Sagrario Gupta on 01/16/19 2:[address] Patient Name: KATIE BAI Admission Status: Elective Accout number: [id number] Admission Date: 01-11-2019 : 1955 Admission Diagnosis:OTHER OSTEOMYELITIS, LOWER LEG Attending: ROXANE MACKENZIE Current LOS: 5 Anticipated DC Date: Planned Disposition: Primary [facility] Discharge Planning Comments: CM MET WITH PATIENT AGAIN ABOUT DC PLANNING/NEEDS. PATIENT WILL NEED INPATIENT REHAB OR SNF. CM LEFT [facility] FOR [facility] ABOUT OT AND REHAB CONSULTS. ALSO PATIENT'S RESPIRATIONS ARE LABORED AND SHE IS ON 4L 02 NC. DOESN'T HAVE O2 OR NEB AT HOME. WILL PROBABLY NEED AT TIME OF DC. 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 CM WILL FOLLOW AND ASSIST NEEDED WITH DC PLANNING/NEEDS. Cardiac Rehabilitation Specialist: Sagrario Candy DCP- Discharge Planning Updated by [email or web address]: Sagrario Gupta on 01/15/19 12:[address] Patient Name: KATIE BAI Admission Status: Elective Accout number: [id number] Admission Date: 01-11-2019 : 1955 Admission Diagnosis:OTHER OSTEOMYELITIS, LOWER LEG Attending: ROXANE MACKENZIE Current LOS: 4 Anticipated DC Date: Planned Disposition: Primary Insurance: [facility] MEDICARE ADV Discharge Planning Comments: CM MET WITH PATIENT ABOUT DC PLANNING/NEEDS. STATES SHE LIVES AT [facility] IN ASSISTED LIVING. HAS EXTERNAL FIXATER ON LEFT FOOT. PATIENT SIGNED PATIENT CHOICE FORM IN CASE SHE NEEDS EXTRA SERVICES WHEN DISCHARGED. SHE [facility]OSE [facility] FOR [facility], AND [facility] FOR 02 OR NEBULIZER NEEDS. IM SERVED. CM WILL FOLLOW AND ASSIST NEEDED WITH DC PLANNING/NEEDS. Cardiac Rehabilitation Specialist: Sagrario Gupta DCPIA - Discharge Planning Initial Assessment Updated by [id number]: Sagrario Gupta on 01/15/19 2:14 pm * Is the patient Alert and Oriented? Yes * PCP DARLENE * Pharmacy [facility] * Preadmission Environment Assisted Living * [facility] * ADLs Independent * Equipment Crutch Walker Wheelchair * List name and contact numbers for known caregivers / representatives who currently or will assist patient after discharge: [place] [phone] * Community resources currently utilized Assisted Living * Please name any agencies selected above. [facility] * Can the patient safely return to the preadmission environment? Yes * Has this patient been hospitalized within the prior 30 days at any hospital? No Coverage Notice Reviewer: VEENA Gupta Notice Issued Date-Time: 01/15/2019 14:23 Notice Type: IM Discharge Notice Notice Delivered To: Patient Relationship to Patient: Self Wheel Cutter Name: Delivery Method: HAND - Hand Delivered Stacey Days: Prior Verbal Notification: Recipient Understood Notice: Yes Recipient Signature: Yes Med Rec Note Co-signed by Attending: Coverage Notice Comment: Reviewer: VEENA Gupta Notice Issued Date-Time: 01/15/2019 14:23 Notice Type: Patient Choice Letter Notice Delivered To: Patient Relationship to Patient: Self Wheel Cutter Name: Delivery Method: HAND - Hand Delivered Stacey Days: Prior Verbal Notification: Recipient Understood Notice: Yes Recipient Signature: Yes Med Rec Note Co-signed by Attending: Coverage Notice Comment: [facility] IF NEEDS O2 Reviewer: VEENA Gupta Notice Issued Date-Time: 01/16/2019 16:09 Notice Type: Patient Choice Letter Notice Delivered To: Patient Relationship to Patient: Self Wheel Cutter Name: Delivery Method: HAND - Hand Delivered Stacey Days: Prior Verbal Notification: Recipient Understood Notice: Yes Recipient Signature: Yes Med Rec Note Co-signed by Attending: Coverage Notice Comment: [facility] IF NEEDS SNF Reviewer: VEENA Gupta Notice Issued Date-Time: 01/29/2019 7:44 Notice Type: IM Discharge Notice Notice Delivered To: Patient Relationship to Patient: Self Wheel Cutter Name: Delivery Method: HAND - Hand Delivered Stacey Days: Prior Verbal Notification: Recipient Understood Notice: Yes Recipient Signature: Yes Med Rec Note Co-signed by Attending: Coverage Notice Comment: Last DP export: 01/27/19 9:01 am Patient Name: KATIE BAI Page [phone] at 1351 All edits/amendments must be made on the electronic document DICTATION DATE: 02/01/19 135 CRAYON SORTING MACHINE FEEDER: THADDEUS 02/01/19 1351 RPT#: [id number] DC DATE: STATUS: ADM IN [facility] [address] [place] [address] END OF REPORT
--- NOTE | 2019-02-01 14:08 | NUR ---
Nutrition Follow Up: Chart reviewed Diet: Regular Mech Soft; Santiago BID PO Intake: 86% meal avg BM: 01/31/19 I>O Labs reviewed Meds noted including Lasix, Prednisone Rec continue current diet. RD following.
--- NOTE | 2019-02-01 14:28 | NUR ---
OT NOTE: PT COMPLETED SIT TO STAND WITH SBA/CGA. PT COMPLETED SITTING BALANCE WITH SBA. PT COMPLETED BUE STRENGTHENING . PT ADHERES ON WT BEARING PRECAUTIONS. THANK YOU, RAVINDER CISSE
--- NOTE | 2019-02-01 14:55 | NUR ---
PT SITTING UP IN BEDSIDE CHAIR RESTING QUIETLY. RR STILL NONLABORED PT HOLDING WELL ON 2L NC WITH PULSE OX OF 98% PT IS HOPING TO BE DISCHARGED SOON. DENIES ANY CURRENT PAIN OR NEEDS. CL IN REACH, BED IN LOWEST, SIDE RAILS X2, WILL CTM.
[2019-02-01 15:28] VITALS: BP 153/80
--- NOTE | 2019-02-01 16:15 | NUR ---
ASSISTED PT BACK INTO HER BED AND SHE IS SITTING UP RESTING QUIETLY. APPLIED HARISH TO BUTTOCKS ALL OVER REDDENED AND EXCORIATED AREAS R/T BURNING AND SORENESS. PT VOICED THANKS AND IS RESTING BACK IN BED. DENIES ANY FURTHER NEEDS AT THIS TIME. WILL CTM.
--- NOTE | 2019-02-01 20:18 | NUR ---
PATIENT RESTING IN BED WITH NO S/S OF DISTRESS AND DENIES NEEDS AT THIS TIME. ADMINISTERED MEDS PER ORDERS. BED IN LOWEST POSITION AND CALL LIGHT WITHIN REACH. ENCORUAGED THE PATIENT TO CALL IF SHE HAS NEEDS. WILL CONTINUE TO MONITOR.
[2019-02-01 21:01] VITALS: BP 126/75
[2019-02-02 02:02] VITALS: BP 116/60
[2019-02-02 08:08] VITALS: BP 164/77
--- NOTE | 2019-02-02 08:54 | NUR ---
AM MEDS GIVEN AT THIS TIME. PT IN BED, DENIES ANY NEEDS AT THIS TIME. PT A/O X4, RESP EVEN AND NONLABORED ON 2L. LT ARM PICC, SL WITH SWAB CAPS IN PLACE, CALL LIGHT IN REACH, NAD NOTED, WILL CONTINUE TO MONITOR.
[2019-02-02 11:00] LABS: ANION GAP 6.7 mmol/L (8-16); CALCIUM 7.5 mg/dL (8.5-10.1); CARBON DIOXIDE 34.7 mmol/L (21.0-32.0); CREATININE - SERUM 1.8 mg/dL (0.6-1.3)
[2019-02-02 11:02] LABS: POTASSIUM - SERUM 3.4 mmol/L (3.5-5.1)
--- NOTE | 2019-02-02 11:14 | MORECARE ---
CASE MANAGEMENT DISCHARGE SUMMARY PATIENT: KATIE BAI ANN UNIT: [id number] ADM DATE: 01/11/19 AGE: 63 : 59 SEX: F ROOM/BED: D.1205 AUTHOR: ELIA SANTANA PHYSICIAN: REFERRING PHYSICIAN: ROXANE MACKENZIE MD DATE OF SERVICE: 02/02/19 Discharge Plan Patient Name: KATIE BAI Facility: [facility]:[place] : 1955 Planned Disposition: Anticipated Discharge Date: Discharge Date: Expected LOS: Initial Reviewer: [id number] Initial Review Date: 01/15/2019 Generated: 02/02/19 12:13 pm Comments DCP- Discharge Planning Updated by [email or web address]: Paris Musa on 02/02/19 10:[address] CM received call from Ed with [facility] (Medicare Bed). Patient has been accepted and auth has been obtained from insurance [employer] for SNF. CM called and notified patient's nurse and Dr. Nicholas. CM informed patient. Explained and served DC IMM. Per patient's request, CM called and notified her sister, Kell Ambriz. Patient verbalized understanding and satisfaction with DC plan. DCP- Discharge Planning Updated by [email or web address]: Paris Musa on 02/01/19 12:[address] CM received order for discharge. WILFRED called and spoke with Debbi at [facility] about patient being cleared for DC. Debbi stated the insurance auth for SNF had . CM will need to fax clinical update, then SNF will submit info to insurance company for auth. CM faxed records as requested. Awaiting insurance auth. DCP- Discharge Planning Updated by [id number]: Sagrario Gupta on 01/27/19 9:[address] Patient Name: KATIE BAI Admission Status: Elective Accout number: [id number] Admission Date: 01-11-2019 : 1955 Admission Diagnosis:OTHER OSTEOMYELITIS, LOWER LEG Attending: ROXANE MACKENZIE Current LOS: 16 Anticipated DC Date: Planned Disposition: Primary Insurance: [facility] MEDICARE ADV Discharge Planning Comments: CM SPOKE WITH DR. FLEMING AND HE STATES WE NEED TO KEEP PATIENT SEVERAL MORE DAYS DUE TO CREATININE LEVEL. CM CALLED ED AT [facility] TO UPDATE HER. PATIENT CAN GO TO [facility] WHEN DISCHARGED. [facility] PHONE NUMBER [phone]. Hostage Negotiator: Sagrario Gupta DCP- Discharge Planning Updated by [email or web address]: Sagrario Gupta on 01/26/19 6:[address] Patient Name: KATIE BAI Admission Status: Elective Accout number: [id number] Admission Date: 01-11-2019 : 1955 Admission Diagnosis:OTHER OSTEOMYELITIS, LOWER LEG Attending: ROXANE MACKENZIE Current LOS: 15 Anticipated DC Date: Planned Disposition: Primary Insurance: [employer] ADV Discharge Planning Comments: CM SPOKE WITH [facility] THIS MORNING, PATIENT HAS BEEN ACCEPTED. CM WILL CALL [facility] WHEN DC'D AND THEY WILL ARRANGE TRANSPORT. CM TO FOLLOW AND ASSIST. Hostage Negotiator: Sagrario Gupta ILP- Discharge Planning Updated by [email or web address]: Sagrario Gupta on 01/22/19 12:[address] Patient Name: KATIE BAI Admission Status: Elective Accout number: [id number] Admission Date: 01-11-2019 : 1955 Admission Diagnosis:OTHER OSTEOMYELITIS, LOWER LEG Attending: ROXANE MACKENZIE Current LOS: 11 Anticipated DC Date: Planned Disposition: Primary Insurance: [employer] ADV Discharge Planning Comments: RUSTY BROWN RECEIVED AND FAXED TO [facility]. NURSING FACILITY STATES NOW STILL WAITING ON AUTH FROM INSURANCE [employer]. CM TO FOLLOW AND ASSIST. Hostage Negotiator: Sagrario Gupta ILP- Discharge Planning Updated by [email or web address]: Sagrario Gupta on 01/20/19 7:[address] Patient Name: KAITE BAI Admission Status: Elective Accout number: [id number] Admission Date: 01-11-2019 : 1955 Admission Diagnosis:OTHER OSTEOMYELITIS, LOWER LEG Attending: ROXANE MACKENZIE Current LOS: 9 Anticipated DC Date: Planned Disposition: Primary Insurance: [employer] ADV Discharge Planning Comments: INPT REHAB WAS DENIED BY INSURANCE. CM WILL SEND OVER REFERRAL TO [facility] FOR SNF. CM WILL FOLLOW AND ASSIST NEEDED WITH DC PLANNING/NEEDS. 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 DCP- Discharge Planning Updated by [id number]: Sagrario Candy on 01/18/19 3:[address] Patient Name: KATIE BAI Admission Status: Elective Accout number: [id number] Admission Date: 01-11-2019 : 1955 Admission Diagnosis:OTHER OSTEOMYELITIS, LOWER LEG Attending: ROXANE MACKENZIE Current LOS: 7 Anticipated DC Date: Planned Disposition: Primary Insurance: [employer]ARE ADV Discharge Planning Comments: CM SPOKE WITH [facility] IN [facility]PT REH[facility] AND ORDERED CONSULT. [facility] WILL SEE TODAY. PATIENT STATES IF INS DOESN'T AUTH INPT REHAB THEN SHE WANTS TO GO TO [facility]. CM WILL FOLLOW AND ASSIST NEEDED. Hostage Negotiator: Sagrario Gupta DCP- Discharge Planning Updated by [email or web address]: Sagrario Gupta on 01/16/19 2:[address] Patient Name: KATIE BAI Admission Status: Elective Accout number: [id number] Admission Date: 01-11-2019 : 1955 Admission Diagnosis:OTHER OSTEOMYELITIS, LOWER LEG Attending: ROXANE MACKENZIE Current LOS: 5 Anticipated DC Date: Planned Disposition: Primary Insurance: [employer] ADV Discharge Planning Comments: CM MET WITH PATIENT AGAIN ABOUT DC PLANNING/NEEDS. PATIENT WILL NEED INPATIENT REHAB OR SNF. CM LEFT [facility] FOR [facility] ABOUT OT AND REHAB CONSULTS. ALSO PATIENT'S RESPIRATIONS ARE LABORED AND SHE IS ON 4L 02 NC. DOESN'T HAVE O2 OR NEB AT HOME. WILL PROBABLY NEED AT TIME OF DC. STATES HASN'T SEEN A APPARATUS CLEANER, MAY NEED PULM CONSULT. CM WILL FOLLOW AND ASSIST NEEDED WITH DC PLANNING/NEEDS. Hostage Negotiator: Sagrario Gupta DCP- Discharge Planning Updated by [email or web address]: Sagrario Gupta on 01/15/19 12:[address] Patient Name: KATIE BAI Admission Status: Elective Accout number: [id number] Admission Date: 01-11-2019 : 1955 Admission Diagnosis:OTHER OSTEOMYELITIS, LOWER LEG Attending: ROXANE MACKENZIE Current LOS: 4 Anticipated DC Date: Planned Disposition: Primary Insurance: [employer] ADV Discharge Planning Comments: CM MET WITH PATIENT ABOUT DC PLANNING/NEEDS. STATES SHE LIVES AT [facility] IN ASSISTED LIVING. HAS EXTERNAL FIXATER ON LEFT FOOT. PATIENT SIGNED PATIENT CHOICE FORM IN CASE SHE NEEDS EXTRA SERVICES WHEN DISCHARGED. SHE [facility]OSE [facility], AND [facility] FOR 02 OR NEBULIZER NEEDS. IM SERVED. CM WILL FOLLOW AND ASSIST NEEDED WITH DC PLANNING/NEEDS. Hostage Negotiator: Sagrariooscar Gupta DCPIA - Discharge Planning Initial Assessment Updated by [email or web address]: Sagrario Gupta on 01/15/19 2:14 pm * Is the patient Alert and Oriented? Yes * PCP DARLENE * Pharmacy [facility] * Preadmission Environment Assisted Living * Facility Name [facility] * ADLs Independent * Equipment Crutch Walker Wheelchair * List name and contact numbers for known caregivers / representatives who currently or will assist patient after discharge: [place] [phone] * Community resources currently utilized Assisted Living * Please name any agencies selected above. [facility] * Can the patient safely return to the preadmission environment? Yes * Has this patient been hospitalized within the prior 30 days at any hospital? No Coverage Notice Reviewer: VEENA Gupta Notice Issued Date-Time: 01/15/2019 14:23 Notice Type: IM Discharge Notice Notice Delivered To: Patient Relationship to Patient: Self Photo Journalist Name: Delivery Method: HAND - Hand Delivered Stacey Days: Prior Verbal Notification: Recipient Understood Notice: Yes Recipient Signature: Yes Med Rec Note Co-signed by Attending: Coverage Notice Comment: Reviewer: VEENA Gupta Notice Issued Date-Time: 01/15/2019 14:23 Notice Type: Patient Choice Letter Notice Delivered To: Patient Relationship to Patient: Self Photo Journalist Name: Delivery Method: HAND - Hand Delivered Stacey Days: Prior Verbal Notification: Recipient Understood Notice: Yes Recipient Signature: Yes Med Rec Note Co-signed by Attending: Coverage Notice Comment: [facility] FOR IV INFUSION [facility] IF NEEDS O2 Reviewer: [id number] Gupta Notice Issued Date-Time: 01/16/2019 16:09 Notice Type: Patient Choice Letter Notice Delivered To: Patient Relationship to Patient: Self Photo Journalist Name: Delivery Method: HAND - Hand Delivered Stacey Days: Prior Verbal Notification: Recipient Understood Notice: Yes Recipient Signature: Yes Med Rec Note Co-signed by Attending: Coverage Notice Comment: [facility] IF NEEDS SNF Reviewer: [id number] Tahmina Gupta Notice Issued Date-Time: 01/29/2019 7:44 Notice Type: IM Discharge Notice Notice Delivered To: Patient Relationship to Patient: Self Photo Journalist Name: Delivery Method: HAND - Hand Delivered Stacey Days: Prior Verbal Notification: Recipient Understood Notice: Yes Recipient Signature: Yes Med Rec Note Co-signed by Attending: Coverage Notice Comment: Reviewer: [id number] Tahmina Musa Notice Issued Date-Time: 02/02/2019 11:00 Notice Type: IM Discharge Notice Notice Delivered To: Patient Relationship to Patient: Self Photo Journalist Name: Delivery Method: HAND - Hand Delivered Stacey Days: Prior Verbal Notification: Recipient Understood Notice: Yes Recipient Signature: Yes Med Rec Note Co-signed by Attending: Coverage Notice Comment: Last DP export: 02/01/19 12:51 p Patient Name: KATIE BAI Page [id number] at 1114 All edits/amendments must be made on the electronic document DICTATION DATE: 02/02/191112 MANUFACTURING LEAD: THADDEUS 02/02/19 111 RPT#: [id number] DC DATE: STATUS: ADM IN [facility] [address] [place] [address] END OF REPORT
[2019-02-02 11:15] LABS: BASOPHILS 0.1 % (0-2); EOSINOPHILS 0.1 % (0-7); HEMATOCRIT 27.7 % (36.0-48.0); HEMOGLOBIN 8.5 g/dL (12-16); IMMATURE GRANULOCYTES 1.6 % (0-5); LYMPHOCYTES 3.3 % (15-50); MCH 27.1 pg (26.0-34.0); MCHC 30.7 g/dL (31.0-37.0); MCV 88.2 fL (80.0-100.0); MEAN PLATELET VOLUME 9.9 fL (7.4-10.4); MONOCYTES 4.2 % (2-11); NEUTROPHILS 90.7 % (40-80); PLATELET COUNT 250 10x3/uL (130-400); RBC 3.14 10x6/uL (4.00-5.40); RDW 15.7 % (11.5-14.5)
--- NOTE | 2019-02-02 14:45 | NUR ---
PROVIDED VERBAL AND WRITTEN DISCHARGE TEACHING TO PT, WHO VERBALIZED UNDERSTANDING REGARDING TEACHING. REPORT CALLED TO FRANCOISE AT [facility]. WILL BE PT EDI BEFORE SHE GOES. MARTIN WILL PICK PT UP AT 1515.
--- NOTE | 2019-02-02 16:50 | NUR ---
PT LEFT UNTI VIA WHEELCHAIR, WITH ALL BELONGINGS, ACCOMPANIED BY [facility] STA[facility], NAD NOTED.
--- NOTE | 2019-02-03 10:06 | MORECARE ---
CASE MANAGEMENT DISCHARGE SUMMARY PATIENT: KATIE BAI ANN UNIT: [id number] ADM DATE: 01/11/19 AGE: 63 : 59 SEX: F ROOM/BED: D.1205 AUTHOR: ELIA SANTANA PHYSICIAN: REFERRING PHYSICIAN: ROXANE MACKENZIE MD DATE OF SERVICE: 02/03/19 Discharge Plan Patient Name: KATIE BAI Facility: [facility]:[place] : 1955 Planned Disposition: [facility] Facility Anticipated Discharge Date: 02/02/19 Discharge Date: 02/02/2019 Expected LOS: 22 Initial Reviewer: [id number] Initial Review Date: 01/15/2019 Generated: 02/03/19 11:05 am Comments DCP- Discharge Planning Updated by [email or web address]: Paris Musa on 02/02/19 10:[address] CM received call from Ed with [facility] (Medicare Bed). Patient has been accepted and auth has been obtained from insurance [employer] for SNF. CM called and notified patient's nurse and Dr. Nicholas. CM informed patient. Explained and served DC IMM. Per patient's request, CM called and notified her sister, Kell Ambriz. Patient verbalized understanding and satisfaction with DC plan. DCP- Discharge Planning Updated by [email or web address]: Paris Musa on 02/01/19 12:[address] CM received order for discharge. CM called and spoke with Debbi at [facility] about patient being cleared for DC. Debbi stated the insurance auth for SNF had . CM will need to fax clinical update, then SNF will submit info to insurance company for auth. CM faxed records as requested. Awaiting insurance auth. DCP- Discharge Planning Updated by [id number]: Sagrario Gupta on 01/27/19 9:[address] Patient Name: KATIE BAI Admission Status: Elective Accout number: [id number] Admission Date: 01-11-2019 : 1955 Admission Diagnosis:OTHER OSTEOMYELITIS, LOWER LEG Attending: ROXANE MACKENZIE Current LOS: 16 Anticipated DC Date: Planned Disposition: Primary Insurance: [employer] ADV Discharge Planning Comments: CM SPOKE WITH DR. FLEMING AND HE STATES WE NEED TO KEEP PATIENT SEVERAL MORE DAYS DUE TO CREATININE LEVEL. CM CALLED ED AT [facility] TO UPDATE HER. PATIENT CAN GO TO [facility] WHEN DISCHARGED. [facility] PHONE NUMBER [phone]. Machine Operator Picker: Sagrario Gupta DCP- Discharge Planning Updated by [email or web address]: Sagrario Gupta on 01/26/19 6:[address] Patient Name: KATIE BAI Admission Status: Elective Accout number: [id number] Admission Date: 01-11-2019 : 1955 Admission Diagnosis:OTHER OSTEOMYELITIS, LOWER LEG Attending: ROXANE MACKENZIE Current LOS: 15 Anticipated DC Date: Planned Disposition: Primary Insurance: [employer] MEDICARE ADV Discharge Planning Comments: CM SPOKE WITH [facility] THIS MORNING, PATIENT HAS BEEN ACCEPTED. CM WILL CALL [facility] WHEN DC'D AND THEY WILL ARRANGE TRANSPORT. CM TO FOLLOW AND ASSIST. Machine Operator Picker: Sagrario Gupta CAP- Discharge Planning Updated by [id number]: Sagrario Gupta on 01/22/19 12:[address] Patient Name: KATIE BAI Admission Status: Elective Accout number: [id number] Admission Date: 01-11-2019 : 1955 Admission Diagnosis:OTHER OSTEOMYELITIS, LOWER LEG Attending: ROXANE MACKENZIE Current LOS: 11 Anticipated DC Date: Planned Disposition: Primary Insurance: [employer] MEDICARE ADV Discharge Planning Comments: RUSTY BROWN RECEIVED AND FAXED TO [facility]. NURSING FACILITY STATES NOW STILL WAITING ON AUTH FROM INSURANCE COMPANY. CM TO FOLLOW AND ASSIST. Machine Operator Picker: Sagrario Gupta DCP- Discharge Planning Updated by [email or web address]: Sagrario Gupta on 01/20/19 7:[address] Patient Name: KATIE BAI Admission Status: Elective Accout number: [id number] Admission Date: 01-11-2019 : 1955 Admission Diagnosis:OTHER OSTEOMYELITIS, LOWER LEG Attending: ROXANE MACKENZIE Current LOS: 9 Anticipated DC Date: Planned Disposition: Primary Insurance: [employer] MEDICARE ADV Discharge Planning Comments: INPT REHAB WAS DENIED BY INSURANCE. CM WILL SEND OVER REFERRAL TO [facility] FOR SNF. CM WILL FOLLOW AND ASSIST NEEDED WITH DC PLANNING/NEEDS. Machine Operator Picker: Sagrario Gupta Appended by Sagrario Gupta on 01/20/2019 9:25 NUCLEAR WEAPONS MECHANICAL SPECIALIST: CM SPOKE WITH INGE AT [facility] AND WE WILL BE WAITING FOR CALL BACK ON [facility]. DCP- Discharge Planning Updated by [id number]: Sagrario Gupta on 01/18/19 3:[address] Patient Name: KATIE BAI Admission Status: Elective Accout number: [id number] Admission Date: 01-11-2019 : 1955 Admission Diagnosis:OTHER OSTEOMYELITIS, LOWER LEG Attending: ROXANE MACKENZIE Current LOS: 7 Anticipated DC Date: Planned Disposition: Primary Insurance: [employer] MEDICARE ADV Discharge Planning Comments: CM SPOKE WITH [facility] IN [facility]PT REHAB AND ORDERED CONSULT. [facility] WILL SEE TODAY. PATIENT STATES IF INS DOESN'T AUTH INPT REHAB THEN SHE WANTS TO GO TO [facility]. CM WILL FOLLOW AND ASSIST NEEDED. Machine Operator Picker: Sagrario Gupta DCP- Discharge Planning Updated by [email or web address]: Sagrario Gupta on 01/16/19 2:[address] Patient Name: KATIE BAI Admission Status: Elective Accout number: [id number] Admission Date: 01-11-2019 : 1955 Admission Diagnosis:OTHER OSTEOMYELITIS, LOWER LEG Attending: ROXANE MACKENZIE Current LOS: 5 Anticipated DC Date: Planned Disposition: Primary Insurance: [employer] MEDICARE ADV Discharge Planning Comments: CM MET WITH PATIENT AGAIN ABOUT DC PLANNING/NEEDS. PATIENT WILL NEED INPATIENT REHAB OR SNF. CM LEFT MSG FOR [facility] ABOUT OT AND REHAB CONSULTS. ALSO PATIENT'S RESPIRATIONS ARE LABORED AND SHE IS ON 4L 02 NC. DOESN'T HAVE O2 OR NEB AT HOME. WILL PROBABLY NEED AT TIME OF DC. STATES HASN'T SEEN A ASSESSMENT COUNSELOR, MAY NEED PULM CONSULT. CM WILL FOLLOW AND ASSIST NEEDED WITH DC PLANNING/NEEDS. Machine Operator Picker: Sagrario Gupta DCP- Discharge Planning Updated by [id number]: Sagrario Gupta on 01/15/19 12:[address] Patient Name: KATIE BAI Admission Status: Elective Accout number: [id number] Admission Date: 01-11-2019 : 1955 Admission Diagnosis:OTHER OSTEOMYELITIS, LOWER LEG Attending: ROXANE MACKENZIE Current LOS: 4 Anticipated DC Date: Planned Disposition: Primary Insurance: [employer] MEDICARE ADV Discharge Planning Comments: CM MET WITH PATIENT ABOUT DC PLANNING/NEEDS. STATES SHE LIVES AT [facility] IN ASSISTED LIVING. HAS EXTERNAL FIXATER ON LEFT FOOT. PATIENT SIGNED PATIENT CHOICE FORM IN CASE SHE NEEDS EXTRA SERVICES WHEN DISCHARGED. SHE [facility]OSE [facility] FOR [facility], AND [facility] FOR 02 OR NEBULIZER NEEDS. IM SERVED. CM WILL FOLLOW AND ASSIST NEEDED WITH DC PLANNING/NEEDS. Machine Operator Picker: Sagrario Gupta DCPIA - Discharge Planning Initial Assessment Updated by [email or web address]: Sagrario Candy on 01/15/19 2:14 pm * Is the patient Alert and Oriented? Yes * PCP DARLENE * Pharmacy [facility] * Preadmission Environment Assisted Living * Facility Name [facility] * ADLs Independent * Equipment Crutch Walker Wheelchair * List name and contact numbers for known caregivers / representatives who currently or will assist patient after discharge: KELL [phone] * Community resources currently utilized Assisted Living * Please name any agencies selected above. [facility] * Can the patient safely return to the preadmission environment? Yes * Has this patient been hospitalized within the prior 30 days at any hospital? No Coverage Notice Reviewer: [id number] Gupta Notice Issued Date-Time: 01/15/2019 14:23 Notice Type: IM Discharge Notice Notice Delivered To: Patient Relationship to Patient: Self Spa Assistant Manager Name: Delivery Method: HAND - Hand Delivered Stacey Days: Prior Verbal Notification: Recipient Understood Notice: Yes Recipient Signature: Yes Med Rec Note Co-signed by Attending: Coverage Notice Comment: Reviewer: [id number] Gupta Notice Issued Date-Time: 01/15/2019 14:23 Notice Type: Patient Choice Letter Notice Delivered To: Patient Relationship to Patient: Self Spa Assistant Manager Name: Delivery Method: HAND - Hand Delivered Stacey Days: Prior Verbal Notification: Recipient Understood Notice: Yes Recipient Signature: Yes Med Rec Note Co-signed by Attending: Coverage Notice Comment: [facility] FOR IV INFUSION [facility] IF NEEDS O2 Reviewer: [email or web address] Gupta Notice Issued Date-Time: 01/16/2019 16:09 Notice Type: Patient Choice Letter Notice Delivered To: Patient Relationship to Patient: Self Spa Assistant Manager Name: Delivery Method: HAND - Hand Delivered Stacey Days: Prior Verbal Notification: Recipient Understood Notice: Yes Recipient Signature: Yes Med Rec Note Co-signed by Attending: Coverage Notice Comment: [facility] NEED[facility] Reviewer: [id number] - Sagrario Gupta Notice Issued Date-Time: 01/29/2019 7:44 Notice Type: IM Discharge Notice Notice Delivered To: Patient Relationship to Patient: Self Spa Assistant Manager Name: Delivery Method: HAND - Hand Delivered Stacey Days: Prior Verbal Notification: Recipient Understood Notice: Yes Recipient Signature: Yes Med Rec Note Co-signed by Attending: Coverage Notice Comment: Reviewer: [id number] Tahmina Musa Notice Issued Date-Time: 02/02/2019 11:00 Notice Type: IM Discharge Notice Notice Delivered To: Patient Relationship to Patient: Self Spa Assistant Manager Name: Delivery Method: HAND - Hand Delivered Stacey Days: Prior Verbal Notification: Recipient Understood Notice: Yes Recipient Signature: Yes Med Rec Note Co-signed by Attending: Coverage Notice Comment: Last DP export: 02/02/19 10:13 a Patient Name: KATIE BAI Page 34123 at 1006 All edits/amendments must be made on the electronic document DICTATION DATE: 02/03/19 1005 GUARD DANCE HALL: THADDEUS 02/03/19 1005 RPT#: [id number] DC DATE:02/02/19 STATUS: DIS IN [facility] [address] [place] [address] END OF REPORT
--- NOTE | 2019-02-03 10:14 | MORECARE ---
CASE MANAGEMENT DISCHARGE SUMMARY PATIENT: KATIE BAI ANN UNIT: [id number] ADM DATE: 01/11/19 AGE: 63 : 59 SEX: F ROOM/BED: D.1205 AUTHOR: ELIA SANTANA PHYSICIAN: REFERRING PHYSICIAN: ROXANE MACKENZIE MD DATE OF SERVICE: 02/03/19 Discharge Plan Patient Name: KATIE BAI Facility: [facility]:[place] : 1955 Planned Disposition: [facility] Facility Anticipated Discharge Date: 02/02/19 Discharge Date: 02/02/2019 Expected LOS: 22 Initial Reviewer: [id number] Initial Review Date: 01/15/2019 Generated: 02/03/19 11:14 am Comments DCP- Discharge Planning Updated by [id number]: Paris Musa on 02/02/19 10:[address] CM received call from Ed with [facility] (Medicare Bed). Patient has been accepted and auth has been obtained from insurance [employer] for SNF. CM called and notified patient's nurse and Dr. Nicholas. CM informed patient. Explained and served DC IMM. Per patient's request, CM called and notified her sister, Kell Ambriz. Patient verbalized understanding and satisfaction with DC plan. DCP- Discharge Planning Updated by [email or web address]: Paris Musa on 02/01/19 12:[address] CM received order for discharge. CM called and spoke with Debbi at [place] about patient being cleared for DC. Debbi stated the insurance auth for SNF had . CM will need to fax clinical update, then SNF will submit info to insurance company for auth. CM faxed records as requested. Awaiting insurance auth. DCP- Discharge Planning Updated by [email or web address]: Sagrario Gupta on 01/27/19 9:[address] Patient Name: KATIE BAI Admission Status: Elective Accout number: [id number] Admission Date: 01-11-2019 : 1955 Admission Diagnosis:OTHER OSTEOMYELITIS, LOWER LEG Attending: ROXANE MACKENZIE Current LOS: 16 Anticipated DC Date: Planned Disposition: Primary Insurance: [employer] MEDICARE ADV Discharge Planning Comments: CM SPOKE WITH DR. FLEMING AND HE STATES WE NEED TO KEEP PATIENT SEVERAL MORE DAYS DUE TO CREATININE LEVEL. CM CALLED ED AT [facility] TO UPDATE HER. PATIENT CAN GO TO [facility] WHEN DISCHARGED. [facility] PHONE NUMBER [phone]. High School Director: Sagrario Gupta DCP- Discharge Planning Updated by [id number]: Sagrario Gupta on 01/26/19 6:[address] Patient Name: KATIE BAI Admission Status: Elective Accout number: [id number] Admission Date: 01-11-2019 : 1955 Admission Diagnosis:OTHER OSTEOMYELITIS, LOWER LEG Attending: ROXANE MACKENZIE Current LOS: 15 Anticipated DC Date: Planned Disposition: Primary Insurance: [employer] MEDICARE ADV Discharge Planning Comments: CM SPOKE WITH [facility] THIS MORNING, PATIENT HAS BEEN ACCEPTED. CM WILL CALL [facility] WHEN DC'D AND THEY WILL ARRANGE TRANSPORT. CM TO FOLLOW AND ASSIST. High School Director: Sagrario Gupta HIP- Discharge Planning Updated by [id number]: Sagrario Gupta on 01/22/19 12:[address] Patient Name: KATIE BAI Admission Status: Elective Accout number: [id number] Admission Date: 01-11-2019 : 1955 Admission Diagnosis:OTHER OSTEOMYELITIS, LOWER LEG Attending: ROXANE MACKENZIE Current LOS: 11 Anticipated DC Date: Planned Disposition: Primary Insurance: [employer] MEDICARE ADV Discharge Planning Comments: RUSTY BROWN RECEIVED AND FAXED TO [facility]. NURSING FACILITY STATES NOW STILL WAITING ON AUTH FROM INSURANCE COMPANY. CM TO FOLLOW AND ASSIST. High School Director: Sagrario Gupta DCP- Discharge Planning Updated by [email or web address]: Sagrario Gupta on 01/20/19 7:[address] Patient Name: KATIE BAI Admission Status: Elective Accout number: [id number] Admission Date: 01-11-2019 : 1955 Admission Diagnosis:OTHER OSTEOMYELITIS, LOWER LEG Attending: ROXANE MACKENZIE Current LOS: 9 Anticipated DC Date: Planned Disposition: Primary Insurance: [employer] MEDICARE ADV Discharge Planning Comments: INPT REHAB WAS DENIED BY INSURANCE. CM WILL SEND OVER REFERRAL TO [facility] FOR SNF. CM WILL FOLLOW AND ASSIST NEEDED WITH DC PLANNING/NEEDS. 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 DCP- Discharge Planning Updated by [id number]: Sagrario Gupta on 01/18/19 3:[address] Patient Name: KATIE BAI Admission Status: Elective Accout number: [id number] Admission Date: 01-11-2019 : 1955 Admission Diagnosis:OTHER OSTEOMYELITIS, LOWER LEG Attending: ROXANE MACKENZIE Current LOS: 7 Anticipated DC Date: Planned Disposition: Primary Insurance: [employer] MEDICARE ADV Discharge Planning Comments: CM SPOKE WITH [facility] IN [facility]PT REHAB AND ORDERED CONSULT. [facility] WILL SEE TODAY. PATIENT STATES IF INS DOESN'T AUTH INPT REHAB THEN SHE WANTS TO GO TO [facility]. CM WILL FOLLOW AND ASSIST NEEDED. High School Director: Sagrario Gupta DCP- Discharge Planning Updated by [id number]: Sagrario Gupta on 01/16/19 2:[address] Patient Name: KATIE BAI Admission Status: Elective Accout number: [id number] Admission Date: 01-11-2019 : 1955 Admission Diagnosis:OTHER OSTEOMYELITIS, LOWER LEG Attending: ROXANE MACKENZIE Current LOS: 5 Anticipated DC Date: Planned Disposition: Primary Insurance: [employer] MEDICARE ADV Discharge Planning Comments: CM MET WITH PATIENT AGAIN ABOUT DC PLANNING/NEEDS. PATIENT WILL NEED INPATIENT REHAB OR SNF. CM LEFT MSG FOR [facility] ABOUT OT AND REHAB CONSULTS. ALSO PATIENT'S RESPIRATIONS ARE LABORED AND SHE IS ON 4L 02 NC. DOESN'T HAVE O2 OR NEB AT HOME. WILL PROBABLY NEED AT TIME OF DC. STATES HASN'T SEEN A MACHINE FEED OPERATOR, MAY NEED PULM CONSULT. CM WILL FOLLOW AND ASSIST NEEDED WITH DC PLANNING/NEEDS. High School Director: Sagrario Gupta DCP- Discharge Planning Updated by [id number]: Sagrario Gupta on 01/15/19 12:[address] Patient Name: KATIE BAI Admission Status: Elective Accout number: [id number] Admission Date: 01-11-2019 : 1955 Admission Diagnosis:OTHER OSTEOMYELITIS, LOWER LEG Attending: ROXANE MACKENZIE Current LOS: 4 Anticipated DC Date: Planned Disposition: Primary Insurance: [employer] MEDICARE ADV Discharge Planning Comments: CM MET WITH PATIENT ABOUT DC PLANNING/NEEDS. STATES SHE LIVES AT [facility] IN ASSISTED LIVING. HAS EXTERNAL FIXATER ON LEFT FOOT. PATIENT SIGNED PATIENT CHOICE FORM IN CASE SHE NEEDS EXTRA SERVICES WHEN DISCHARGED. SHE [facility]OSE [facility] FOR [facility], AND [facility] FOR 02 OR NEBULIZER NEEDS. IM SERVED. CM WILL FOLLOW AND ASSIST NEEDED WITH DC PLANNING/NEEDS. High School Director: Sagrariooscar Gupta DCPIA - Discharge Planning Initial Assessment Updated by [email or web address]: Sagrario Candy on 01/15/19 2:14 pm * Is the patient Alert and Oriented? Yes * PCP DARLENE * Pharmacy [facility] * Preadmission Environment Assisted Living * Facility Name [facility] * ADLs Independent * Equipment Crutch Walker Wheelchair * List name and contact numbers for known caregivers / representatives who currently or will assist patient after discharge: KELL [phone] * Community resources currently utilized Assisted Living * Please name any agencies selected above. [facility] * Can the patient safely return to the preadmission environment? Yes * Has this patient been hospitalized within the prior 30 days at any hospital? No Coverage Notice Reviewer: [id number] Tahmina Musa Notice Issued Date-Time: 02/02/2019 11:00 Notice Type: IM Discharge Notice Notice Delivered To: Patient Relationship to Patient: Self Print Production Coordinator Name: Delivery Method: HAND - Hand Delivered Stacey Days: Prior Verbal Notification: Recipient Understood Notice: Yes Recipient Signature: Yes Med Rec Note Co-signed by Attending: Coverage Notice Comment: Reviewer: [id number] Gupta Notice Issued Date-Time: 01/29/2019 7:44 Notice Type: IM Discharge Notice Notice Delivered To: Patient Relationship to Patient: Self Print Production Coordinator Name: Delivery Method: HAND - Hand Delivered Stacey Days: Prior Verbal Notification: Recipient Understood Notice: Yes Recipient Signature: Yes Med Rec Note Co-signed by Attending: Coverage Notice Comment: Reviewer: [id number] Gupta Notice Issued Date-Time: 01/15/2019 14:23 Notice Type: IM Discharge Notice Notice Delivered To: Patient Relationship to Patient: Self Print Production Coordinator Name: Delivery Method: HAND - Hand Delivered Stacey Days: Prior Verbal Notification: Recipient Understood Notice: Yes Recipient Signature: Yes Med Rec Note Co-signed by Attending: Coverage Notice Comment: Reviewer: [id number] Tahmina Gupta Notice Issued Date-Time: 01/16/2019 16:09 Notice Type: Patient Choice Letter Notice Delivered To: Patient Relationship to Patient: Self Print Production Coordinator Name: Delivery Method: HAND - Hand Delivered Stacey Days: Prior Verbal Notification: Recipient Understood Notice: Yes Recipient Signature: Yes Med Rec Note Co-signed by Attending: Coverage Notice Comment: [facility] Reviewer: [id number] - Sagrariooscar Gupta Notice Issued Date-Time: 01/15/2019 14:23 Notice Type: Patient Choice Letter Notice Delivered To: Patient Relationship to Patient: Self Print Production Coordinator Name: Delivery Method: HAND - Hand Delivered Stacey Days: Prior Verbal Notification: Recipient Understood Notice: Yes Recipient Signature: Yes Med Rec Note Co-signed by Attending: Coverage Notice Comment: [facility] FOR IV INFUSION [facility] IF NEEDS O2 Last DP export: 02/03/19 9:05 a Patient Name: KATIE BAI Page 94469 at 1014 All edits/amendments must be made on the electronic document DICTATION DATE: 02/03/19 1014 MOTORCYCLE SERVICE TECHNICIAN: THADDEUS 02/03/19 1014 RPT#: [id number] DC DATE:02/02/19 STATUS: DIS IN [facility] [address] [place] [address] END OF REPORT
== END 2019-02-02 16:51 | DRG 492 ==
LOC: D.SDCHOLD 10:32 → D.M3 10:32
PROVIDERS: Family Medicine; Family Medicine Adult Medicine; Internal Medicine Nephrology; Student in an Organized Health Care Education/Training Program; ADMIT Orthopaedic Surgery; ATTEND Orthopaedic Surgery
PROC: 0QSH04Z Reposition Left Tibia with Internal Fixation Device, Open Approach (ICD-10-PCS; 2019-01-12)
PROC: 0JDR0ZZ Extraction of Left Foot Subcutaneous Tissue and Fascia, Open Approach (ICD-10-PCS; 2019-01-12)
PROC: 0QHK35Z Insertion of External Fixation Device into Left Fibula, Percutaneous Approach (ICD-10-PCS; 2019-01-12)
PROC: 0SPG04Z Removal of Internal Fixation Device from Left Ankle Joint, Open Approach (ICD-10-PCS; principal; 2019-01-12 08:00)
PROC: 0QSK04Z Reposition Left Fibula with Internal Fixation Device, Open Approach (ICD-10-PCS; 2019-01-12 08:00)
PROC: 05HY33Z Insertion of Infusion Device into Upper Vein, Percutaneous Approach (ICD-10-PCS; 2019-01-19)
PROC: 5A09357 Assistance with Respiratory Ventilation, Less than 24 Consecutive Hours, Continuous Positive Airway Pressure (ICD-10-PCS; 2019-01-23)
DX: T84.59XA Infection and inflammatory reaction due to other internal joint prosthesis, initial encounter (principal); J96.02 Acute respiratory failure with hypercapnia; J96.01 Acute respiratory failure with hypoxia; M86.172 Other acute osteomyelitis, left ankle and foot; M00.872 Arthritis due to other bacteria, left ankle and foot; N17.9 Acute kidney failure, unspecified; J44.1 Chronic obstructive pulmonary disease with (acute) exacerbation; J98.11 Atelectasis; T84.197A Other mechanical complication of internal fixation device of bone of left lower leg, initial encounter; Y83.8 Other surgical procedures as the cause of abnormal reaction of the patient, or of later complication, without mention of misadventure at the time of the procedure; I10 Essential (primary) hypertension; K21.9 Gastro-esophageal reflux disease without esophagitis; E03.9 Hypothyroidism, unspecified; E87.6 Hypokalemia; B95.7 Other staphylococcus as the cause of diseases classified elsewhere

== ENCOUNTER → 2019-02-04 17:17 | Outpatient (CLI) | payer MEDICARE, MEDICAID ==
[2019-01-26 14:22] VITALS: BMI 33.2
[~2019-02-04 17:17] MED LIST changes: +VANCOMYCIN 1 GM/1 G1 IV
== END | disposition home or self-care (01) ==
LOC: D.OPS 16:30
PROVIDERS: ATTEND Family Medicine
DX: T82.898A Other specified complication of vascular prosthetic devices, implants and grafts, initial encounter (principal)

== ENCOUNTER 2019-02-12 14:31 | Outpatient (CLI) | payer MEDICARE, MEDICAID ==
[2019-01-26 14:22] VITALS: BMI 33.2
== END 2019-02-12 15:35 | disposition home or self-care (01) ==
LOC: D.OPS 14:31
PROVIDERS: ATTEND Family Medicine
DX: R60.0 Localized edema (principal); M79.602 Pain in left arm